=== PATIENT | female | born 1950 | race Caucasian/White ===

== ENCOUNTER 2024-09-28 18:22 | Inpatient (IN) | payer MEDICARE, SELFPAY ==
[2024-09-28] VITALS (13 sets, daily range): BP systolic 62–118; BP diastolic 36–63; PULSE 72–93; RESP 12–98; TEMP 36.6–36.8; O2SAT 97–100; BMI 32.3
--- NOTE | 2024-09-28 19:09 | EKG_ITS ---
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: : 1950 Requested By: Cecile Morales Order Number: [id number] Reading MD: Cecile Morales Measurements Intervals [place] Rate: 82 P: 52 [place]: 236 QRS: 59 QRSD: 105 T: 211 QT: 358 QTc: 418 Interpretive Statements SINUS RHYTHM WITH FIRST DEGREE AV BLOCK WITH OCCASIONAL VENTRICULAR PREMATURE COMPLEXES MARKED ST DEPRESSION, CONSIDER SUBENDOCARDIAL INJURY [0.2+ mV ST DEPRESSION] WARNING: DATA QUALITY MAY AFFECT INTERPRETATION Compared to ECG 08/04/2023 15:36:51 Ventricular premature complex(es) now present First degree AV block now present ST (T wave) deviation now present T-wave abnormality no longer present /store/S0/[id number]/ecg/[id number].pdf
--- NOTE | 2024-09-28 19:09 | XR_ITS ---
Examination: AP chest single view Technique: AP portable semiupright chest single view Exam date and time: September 28, 20242004 hrs. Comparison August 03, 2023 Indications: Syncope weakness today Findings: No significant cardiac enlargement No pneumonia or pulmonary edema Moderate osteopenia Stable granuloma right lower lobe Impression: No active disease
--- NOTE | 2024-09-28 20:29 | EDNOTE_ITS ---
ED Weakness RME/HPI General Chief complaint: Weakness Stated complaint: NEAR SYNCOPE Time Seen by Provider: 09/28/24 19:10 Arrival date/time: 09/28/24 18:22 Limitations: no limitations RME / HPI RME / HPI Narrative: DR. GAMBINO MAIN ED EVALUATION: 82-year-old female with history of hypertension, high cholesterol coming in with dizziness and near syncopal episode. Per report from EMS the patient was walking around and then got dizzy. There is no reported falling and hitting her head. Patient otherwise is not reporting regular blood per rectum, and nonbilious and nonbloody emesis once at home. Related Data Home Medications ?Medication ?Instructions ?Recorded ?Confirmed benazepril 40 mg tablet 40 mg PO QDAY 08/03/23 09/29/24 clopidogrel 75 mg tablet 75 mg PO QAM 08/03/23 09/29/24 rosuvastatin 40 mg tablet 40 mg PO QPM 08/03/23 09/29/24 furosemide 20 mg tablet 20 mg PO QDAY 09/29/24 09/29/24 Allergies Allergy/AdvReac Type Severity Reaction Status Date / Time No Known Allergies Allergy Verified 08/03/23 09:37 Review of Systems Review of Systems Systems Reviewed: All systems reviewed, normal except as documented Narrative Review of Systems: GEN: No fever, no chills, no weight loss EYES: No discharge, no visual changes, no pain HEENT: No ear pain, no congestion, no sore throat PULM: No shortness of breath, no cough, no congestion CV: No chest pain, no dyspnea on exertion, no palpitations GI: No nausea, no vomiting, no diarrhea, no pain, no constipation : No frequency, no urgency and no dysuria MUSC/SKEL: No joint pain, no back pain SKIN: No rash PSYCH: No hallucinations, no depression HEME/LYMPH: No easy bleeding or bruising tendencies NEURO: No weakness, no headache, +dizziness, + near syncopal episode (see HPI) Past Medical History Past Medical History NEUROLOGIC: Negative Cerebrovascular Accident or Seizures CARDIAC: Positive Cardiac Disorders ( bad heart valve per pt) and Valvular Heart Disease; Negative Hypercholesterolemia, Congestive Heart Failure or Hypertension RESPIRATORY: Positive Asthma; Negative Chronic Obstructive Pulmonary Disease (COPD) or Sleep Apnea GASTROINTESTINAL: Negative Gastrointestinal Disorders GENITOURINARY: Negative Genitourinary Disorders or Renal Disease MUSCULOSKELETAL: Negative Arthritis, Gout or Fractures ENDOCRINE: Negative Diabetes Mellitus Type 1, Diabetes Mellitus Type 2, Hyperthyroidism or Hypothyroidism HEMATOLOGIC: Negative Anemia or Sickle Cell Disease OTHER HISTORY: Negative Blood Transfusions, Blood Transfusion Reaction, Anesthesia Reactions or Cancer Surgical History SURGICAL: Positive Coronary Stent, Cardiac Catheterization and Hysterectomy; Negative Pacemaker, Ear Surgery or Joint Replacement Social History SMOKING STATUS: Never smoker SUBSTANCE USE: does not use ALCOHOL: Never ED Exam Narrative Physical exam: Patient lying in a stretcher, appears awake in minimal distress. Not pale. General Limitations: Present no limitations General appearance: Present alert; Absent anxious Head Head exam: Present atraumatic Eye Eye exam: Present normal appearance, PERRL and EOMI; Absent scleral icterus ENT ENT exam: Present normal exam, normal oropharynx and mucous membranes moist Neck Neck exam: Present normal inspection, full ROM and trachea midline; Absent tenderness Chest Chest inspection: Present normal inspection and symmetric chest wall rise Respiratory Respiratory exam: Present normal lung sounds bilaterally; Absent respiratory distress or wheezes Cardiovascular Cardiovascular exam: Present regular rate, normal rhythm and normal heart sounds Abdominal Exam Abdominal exam: Present soft and normal bowel sounds; Absent tenderness or guarding Rectal Exam Rectal exam: Present heme (+) stool (with brown stool) Extremities Exam Extremities exam: Present normal inspection and full ROM Back Exam Back exam: Present normal inspection and full ROM Neurological Exam Neurological exam: Present alert, oriented X3, CN II-XII intact and other (No aphasia, no dysarthria); Absent motor sensory deficit Psychiatric Psychiatric exam: Present normal affect and normal mood Skin Skin exam: Present warm, dry and intact; Absent cyanosis, pallor or mottled Course Course Course Narrative: 2156: Blood transfusion ordered. 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 START 00 Care 09/28/24 19:09 Active Continuous Pulse Oximetry ONCE Care 09/28/24 19:09 Completed EKG (ED ONLY) *Do not use* NOW Care 09/28/24 19:09 Completed Insert IV STAT Care 09/28/24 19:09 Active Transfuse,blood/blood products NOW Care 09/28/24 21:58 Active EKG (ED Only) Stat Exams 09/28/24 19:09 Ordered XR chest 1V portable Stat Exams 09/28/24 19:09 Completed B-Type Natriuretic Peptide Stat Lab 09/28/24 21:10 Completed CBC Stat Lab 09/28/24 21:10 Completed Comprehensive Metabolic Panel Stat Lab 09/28/24 19:36 Completed Drug Screen,Urine Stat Lab 09/28/24 20:42 Completed Ferritin Stat Lab 09/28/24 22:19 Completed Folate Stat Lab 09/28/24 22:19 Completed Iron Panel Stat Lab 09/28/24 22:19 Completed LDH (Lactate Dehydrogenase) Stat Lab 09/28/24 22:19 Completed Lipase Stat Lab 09/28/24 19:36 Completed Magnesium Stat Lab 09/28/24 19:36 Completed Partial Thromboplastin Time Stat Lab 09/28/24 19:36 Completed Prothrombin Time with INR Stat Lab 09/28/24 19:36 Completed Red Blood Cells Stat Lab 09/28/24 22:19 Completed Troponin I Stat Lab 09/28/24 19:36 Completed Type and Screen Stat Lab 09/28/24 22:19 Completed Urinalysis, C/S if Indicated Stat Lab 09/28/24 20:44 Completed Urine Culture Stat Lab 09/28/24 20:44 Received Vitamin B12 Stat Lab 09/28/24 22:19 Completed Ondansetron Inj [Zofran Inj] Med 09/28/24 19:09 Active 4 mg IV Q1HR PRN Oxygen Delivery NOW RT 09/28/24 19:09 Active Vital Signs Vital signs: Vital Signs Pulse Rate 84 09/28/24 18:26 Respiratory Rate 14 09/28/24 18:26 Blood Pressure 92/53 L 09/28/24 18:26 Pulse Oximetry (%) 100 09/28/24 18:26 Oxygen Delivery Method Nasal Cannula 09/28/24 18:26 Oxygen Flow Rate 2 09/28/24 18:26 Weakness MDM Narrative MDM Narrative:: 74-year-old female with history of hypertension coming in with dizziness and near syncope. Patient is not on blood thinners at this time. PMHX: Aortic stenosis on Plavix. Hyperlipidemia. Hypertension. Smoker. Cholecystectomy, hysterectomy at the age of 25 Status post bladder Suspension operation. 2335: Repeat blood pressure is 106 systolic with a HR of 106. 2347: Attempted to call Dr. Atwood, but he did not answer. Deanna Marina am scribing for and in the presence of Dr. Gambino. Patient data External records reviewed:: [facility] previous records (Reviewed last admission discharge dated 08/05/23, patient admitted for the following: Gross hematuria. ) and EMS form Clinical information provided by:: patient and EMS Social determinants that could affect healthcare access:: none Patient has the following chronic illnesses:: hypertension, high cholesterol How is presenting disease/condition affected by chronic disease/condition?: ex acerbated by Evaluation data The following diagnostics were reviewed and interpreted by me:: lab results, radiology exam(s) and EKG tracing(s) Lab and/or radiology exams considered but not ordered:: none Interpretation Summary: See above under MDM narrative. [facility] Report Signed Patient: VERENICE GIVENS Record#: [id number] Birthdate: 1950 Age/Sex: 74 / F Location: [facility] Attending Dr: Ordering Physician: Cecile Gambino MD Date of Service: 09/28/24 Procedure(s): XR chest 1V portable Accession Number(s): [id number] cc: Ant Valentin MD; Daquan Simeon MD; Cecile Gambino MD~ Examination: AP chest single view Technique: AP portable semiupright chest single view Exam date and time: September 28, 20242004 hrs. Comparison August 03, 2023 Indications: Syncope weakness today Findings: No significant cardiac enlargement No pneumonia or pulmonary edema Moderate osteopenia Stable granuloma right lower lobe Impression: No active disease Dictated By: Daquan Simeon MD Signed By: <Electronically signed by Daquan Simeon MD in OV> 09/28/24 2130 Medications / Prescriptions Medications or Prescriptions considered but not ordered:: none Medication administrations:: Medication Administration History Acetaminophen (Acetaminophen 325 Mg Tablet) 650 mg PO Q6H PRN PRN Reason: Fever >101.5 Stop: 10/29/24 01:55 Cyanocobalamin (Cyanocobalamin Inj 1,000 Mcg/Ml Vial) 1,000 mcg IM QDAY [place] Stop: 10/01/24 08:59 Ferric Sodium Gluconate 125 mg (/ Sodium Chloride) 110 mls @ 110 mls/hr IV QDAY [place] Stop: 10/05/24 08:59 Magnesium Hydroxide (Milk Of Magnesia Susp 30 Ml Udc) 30 ml PO QDAY PRN; Protoc ol PRN Reason: CONSTIPATION Stop: 10/29/24 01:55 Multivitamins/Minerals (Multivitamin Inj 10 Ml Vial) 10 ml IV X1 ONE Stop: 09/29/24 08:01 Ondansetron HCl (Ondansetron Inj 2 Mg/Ml Inj 2 Ml) 4 mg IV Q1HR PRN PRN Reason: PERSISTENT NAUSEA OR VOMITING Pantoprazole Sodium (Pantoprazole Inj 40 Mg Vial) 40 mg IVP QDAY [facility] Stop: 10/29/24 08:59 Vitamin B Complex/Vit C/Folic Acid (Vit B12/Vit C/Fa (Nephrovite) Tablet) 1 tab PO QDAY [facility] Stop: 10/29/24 08:59 Discontinued Medications Cyanocobalamin (Cyanocobalamin Inj 1,000 Mcg/Ml Vial) 1,000 mcg IM X1 ONE Stop: 09/29/24 03:11 Last Admin: 09/29/24 04:35 Dose: 1,000 mcg Documented By: Ferric Sodium Gluconate 125 mg (/ Sodium Chloride) 110 mls @ 110 mls/hr IV X1 ONE Stop: 09/29/24 03:27 Multivitamins/Minerals (Multivitamin Inj 10 Ml Vial) 10 ml IV X1 ONE Stop: 09/29/24 03:09 Ondansetron HCl (Ondansetron Inj 2 Mg/Ml Inj 2 Ml) 4 mg IV Q6H PRN; Protocol PRN Reason: NAUSEA OR VOMITING Stop: 10/29/24 01:55 see above Consultations Consultation(s) initiated? (list below): Yes Consultation #1 (Physician, Specialty, Details): Discussed case with [the resident physician, attending Dr. Macarenas] from Hospitalist service regarding admission. Discussed patients ED course, exam findings, labs, and radiology results. The Hospitalist [agrees] to accept the patient for admission. Time: 23:34 Diagnosis Weakness Differential Diagnosis: anemia, hypoglycemia, sepsis, dehydration and other (syncopal episode) Most likely diagnosis given after review of the tests above:: see below Admission Indicated Admission indicated?: indicated Admission Request Was there a request for admission?: Yes Admission Attestation Admission request attestation: Discussed case with [] from Hospitalist service regarding admission. Discussed patients ED course, exam findings, labs, and radiology results. The Hospitalist [agrees,declines] to accept the patient for admission. Disposition Plan Disposition Plan: Admit Discharge Plan Plan Patient Disposition: Admit Acute Care w/in Hospital Patient condition on transfer: Stable Problem List Clinical Impression: Near syncope, Symptomatic anemia, Acute UTI, Acute renal failure (ARF)
[2024-09-28 20:38] LABS: Prothrombin Time 11.4 Seconds (9.0-12.2)
[2024-09-28 20:44] LABS: Alanine Aminotransferase 10 U/L (10-49); Albumin, Serum 3.9 gm/dL (3.4-4.8); Albumin/Globulin Ratio 1.9 (1.2-2.2); Alkaline Phosphatase 47 U/L (46-116); Anion Gap 10 (7-16); Aspartate Amino Transferase 11 U/L (0-34); BUN/Creatinine Ratio 26 Ratio (12-20); Bilirubin,Total 0.2 mg/dL (0.3-1.2); Blood Urea Nitrogen 81 mg/dL (9-23); Calcium 8.6 mg/dL (8.3-10.6); Calcium (Corrected) 8.7 mg/dL (8.5-10.1); Carbon Dioxide 22.1 mMol/L (20.0-31.0); Chloride 107 mMol/L (98-107); Creatinine (Component) 3.1 mg/dL (0.6-1.3); Estimated Creatinine Clearance 13.4 mL/min (>60); Globulin 2.1 gm/dL (2.3-3.5); Glucose 135 mg/dL (74-106); Lipase 55 U/L (12-53); Magnesium 2.8 mg/dL (1.6-2.6); Osmolality,Calculated 303 (275-295); Potassium 5.1 mMol/L (3.4-5.1); Sodium 139 mMol/L (136-145); Troponin I < 0.020 ng/mL (0.0-0.045); eGFR 15 See Note
[2024-09-28 20:50] LABS: Collection Type, Urine Catheter
[2024-09-28 21:12] LABS: Amphetamine/Methamp Scrn,U Negative (Negative); Barbiturate Screen,Urine Negative (Negative); Benzodiazepines Screen,Urine Negative (Negative); Benzoylecgonine Screen, Ur Negative (Negative); Fentanyl Screen,Urine Negative (Negative); Opiate Screen,Urine Negative (Negative); THC Screen,Urine Negative (Negative)
[2024-09-28 21:18] LABS: Bacteria,Urine 1+; Bilirubin,Urine Negative (Negative); Blood,Urine 1+ (Negative); Clarity,Urine Turbid (Clear/Hazy); Color,Urine Lt-Yellow (Lt Yel-Yel); Culture Indicated,Urine Yes; Glucose, Urine Negative (Negative); Hyaline Casts,Urine < 1 /hpf (0-1); Ketones,Urine Negative (Negative); Leukocyte Esterase,Urine Positive (Negative); Nitrite,Urine Negative (Negative); PH,Urine 6.5 (5.0-7.0); Protein,Urine 1+ (Neg - Trace); RBC,Urine 1 /hpf (0-3); Specific Gravity,Urine 1.018 (1.001-1.035); Squamous Epithelial Cell,Urine 1 /hpf (0-5); Urobilinogen,Urine Negative mg/dL (0.0-1.0); WBC,Urine 16 /hpf (0-5)
[2024-09-28 21:20] LABS: Basophils # (Auto) 0.1 Thou/mm3 (0.0-0.2); Basophils % (Auto) 1 % (0-2.5); Eosinophils % (Auto) 0 % (0-10); Immature Granulocytes % (Auto) 1 % (0-0); Immature Granulocytes Auto 0.04 Thou/mm3 (0.00-0.00); Lymphocytes # (Auto) 0.8 Thou/mm3 (1.0-4.8); Lymphocytes % (Auto) 9 % (10-50); Mean Corpuscular HGB Conc 32.7 g/dl (31.0-37.0); Mean Corpuscular Hemoglobin 31.4 pg (25.0-35.0); Mean Corpuscular Volume 96 fL (80-100); Monocytes # (Auto) 0.5 Thou/mm3 (0.0-0.8); Monocytes % (Auto) 6 % (0-12); Neutrophils # (Auto) 7.2 Thou/mm3 (1.8-7.7); Neutrophils % (Auto) 83 % (37-80); Nucleated Red Blood Cell % 0 /100 WBC (0); Platelet Count 155 Thou/mm3 (140-440); RDW Standard Deviation 56.6 fL (36.4-46.3); Red Blood Count 1.69 Miln/mm3 (4.00-5.20); White Blood Count 8.6 Thou/mm3 (3.6-11.0)
[2024-09-28 21:25] LABS: Hematocrit 16.2 % (36.0-46.0); Hemoglobin 5.3 g/dL (12.0-16.0)
[2024-09-28 22:04] LABS: B-Type Natriuretic Peptide 124 pg/mL (0-100)
[2024-09-29] VITALS (21 sets, daily range): BP systolic 63–147; BP diastolic 36–82; PULSE 64–83; RESP 10–29; TEMP 36.1–36.8; O2SAT 94–100; BMI 33.0
[2024-09-29 01:42] LABS: LDH (Lactate Dehydrogenase) 235 U/L (120-246)
[2024-09-29 01:50] LABS: Ferritin 16 ng/mL (7.3-270.7); Total Iron Binding Capacity 352 mcg/dL (250-425)
--- NOTE | 2024-09-29 01:55 | PD.RESHP ---
Documentation for date of: 09/29/24 [facility] History of Present Illness History of present illness: 74-year-old female with past medical history of hypertension, CAD s/p 3 stents in 2013, aortic stenosis, hyperlipidemia, asthma per chart review but patient did not endorse any inhalers use, chronic smoker presented to the hospital with chief complaints of dizziness since 3 months. Patient noticed this dizziness 3 months back and since then it is getting progressively worsened and patient recently had a fall while climbing the stairs with no loss of consciousness and no trauma to the head or back. Stated that she is having multiple dizziness even in sitting position and 2 weeks back visited her metal checker Dr. Gions and she was scheduled for cardiac catheterization on 10/03/2024. Denies chest pain, palpitations, syncopal attacks, abdominal pain. Patient endorsed that she is eating only 1 meal in a day due to financial issues and also noticed weight loss over the last couple of months. Denies blood or blackish discoloration of stools and also denies any bloody vomitus, constipation, diarrhea. Also endorsed that she bruises easily. Before coming to the ED, patient had episode of nonbilious vomiting. ED Course: -Initial vitals were blood pressure 92/53 mmHg, pulse rate 84/min, respiratory rate 14/min, temperature 97.8 ?F, SpO2 100% with 2 L oxygen -Labs significant for Hb 5.3, BUN 81, creatinine 3.1, BNP 124. Urinalysis showed turbid urine with 1+ proteinuria, 16 WBC, 1+ bacteria. Tested negative for urine toxicology. Chest x-ray showed no pulmonary infiltrates. -In the ED, patient was given ondansetron and started on 2 units of PRBC transfusion -Patient was admitted for anemia Past medical history: hypertension, CAD s/p 3 stents in 2013, aortic stenosis, hyperlipidemia, asthma Past surgical history: Cholecystectomy, Hysterectomy Social history: Smoking for greater than 30 years, actively smoking 4 cigarettes/day, denies alcohol and other illicit drug abuse Family history: Lung cancer in father and mother of alcohol abuse Review of Systems Review of Systems Narrative Review of Systems: Constitutional: No Weight Change, No Fever, No Chills, No Night Sweats, Fatigue, Malaise ENT/Mouth: No Hearing Changes, No Ear Pain, No Nasal Congestion, No Sinus Pain, No Hoarseness, No sore throat, No Rhinorrhea, No Swallowing Difficulty Eyes: No Eye Pain, No Swelling, No Redness, No Foreign Body, No Discharge, No Vision Changes Cardiovascular: No Chest Pain, No SOB, No PND, Dyspnea on Exertion, No Orthopnea, No Edema, No Palpitations Respiratory: No Cough, No Sputum, No Wheezing, No Dyspnea Gastrointestinal: No Nausea, No Vomiting, No Diarrhea, No Constipation, No Pain, No Heartburn, No Anorexia, No Dysphagia, No Hematochezia, No Melena, No Flatulence, No Jaundice Genitourinary: No Dysuria, No Urinary Frequency, No Hematuria, No Urinary Incontinence, No Urgency, No Flank Pain, No Urinary Flow Changes, No Hesitancy Musculoskeletal: No Arthralgias, No Myalgias, No Joint Swelling, No Joint Stiffness, No Back Pain, No Neck Pain, No Injury History Skin: No Skin Lesions, No Pruritis Neuro: No Weakness, No Numbness, No Paresthesias, No Loss of Consciousness, No Syncope, No Dizziness, No Headache, No Coordination Changes, Recent Falls Exam Vital Signs Temp Pulse Resp BP Pulse Ox O2 Del Method O2 Flow Rate 98.1 F 65 19 104/43 L 97 Room Air 2 09/29/24 01:43 09/29/24 01:43 09/29/24 01:43 09/29/24 01:43 09/29/24 01:43 09/28/24 23:35 09/28/24 18:26 Narrative Exam General: Awake. Frail elderly lady HEENT: Normocephalic, atraumatic, mucous membranes moist. Heart: Regular rate and rhythm, ejection systolic murmur best heard at aortic area Lungs: Clear to auscultation with no wheezing or crackles. Abdomen: Soft, nondistended, nontender, positive bowel sounds. ?No guarding or rebound tenderness. Neurologic: Alert and oriented x3, no gross neurological deficit, and patient able to move all 4 extremities. Extremities: No edema. Skin: No rash or ecchymoses. Results: Labs 10/02/24 05:23 10/02/24 05:23 Labs: Short CBC 09/28/24 Range/Units 21:10 WBC 8.6 (3.6-11.0) Thou/mm3 Hgb 5.3 L* (12.0-16.0) g/dL Hct 16.2 L* (36.0-46.0) % Plt Count 155 (140-440) Thou/mm3 BMP 09/28/24 19:36 Sodium 139 Potassium 5.1 Chloride 107 Carbon Dioxide 22.1 BUN 81 H Creatinine 3.1 H Glucose 135 H Calcium 8.6 Cardiac Enzymes 09/28/24 Range/Units 19:36 Troponin I < 0.020 (0.0-0.045) ng/mL Liver Function 09/28/24 Range/Units 19:36 Total Bilirubin 0.2 L (0.3-1.2) mg/dL AST 11 (0-34) U/L ALT 10 (10-49) U/L Alkaline Phosphatase 47 (46-116) U/L Albumin 3.9 (3.4-4.8) gm/dL Urine 09/28/24 Range/Units 20:44 Urine Color Lt-Yellow (Lt Yel-Yel) Urine Clarity Turbid A (Clear/Hazy) Urine pH 6.5 (5.0-7.0) Ur Specific [place] 1.018 (1.001-1.035) Urine Protein 1+ A (Neg - Trace) Urine Glucose (UA) Negative (Negative) Quality Measures Quality Measures none Advance care planning discussed with:: patient Medications Home Medications and Allergies Home Medications ?Medication ?Instructions ?Recorded ?Confirmed ?Type benazepril 40 mg tablet 40 mg PO QDAY 08/03/23 09/29/24 History clopidogrel 75 mg tablet 75 mg PO QAM 08/03/23 09/29/24 History rosuvastatin 40 mg tablet 40 mg PO QPM 08/03/23 09/29/24 History furosemide 20 mg tablet 20 mg PO QDAY 09/29/24 09/29/24 History Allergies Allergy/AdvReac Type Severity Reaction Status Date / Time No Known Allergies Allergy Verified 08/03/23 09:37 Visit Medications Ondansetron HCl (Ondansetron Inj 2 Mg/Ml Inj 2 Ml) 4 mg IV Q1HR PRN PRN Reason: PERSISTENT NAUSEA OR VOMITING Assessment & Plan Plan 74-year-old female with past medical history of hypertension, CAD s/p PCI, 3 stents in 2013, aortic stenosis, hyperlipidemia, asthma per chart review but patient did not endorse any inhalers use, chronic smoker presented to the hospital with chief complaints of dizziness since 3 months and admitted for anemia # Dizziness and fall # Acute anemia # Multifactorial, nutritional, anemia due to CKD, iron deficiency, B12 deficiency,?Blood loss -Complaining of dizziness since 3 months and had a fall 2 weeks back -Following metal checker Dr. Goins for aortic stenosis and CAD, scheduled for cardiac cath on 10/03/2024 -Presented to the hospital because dizziness is getting worsened and had an episode of vomiting -Endorsed that she is eating only 1 meal per day due to financial issues and also endorsed weight loss over last 3 months -Denies abdominal pain, constipation, diarrhea, blood or blackish discoloration of stools. -Vitals at the time of admission are stable except for blood pressure 92/53 mmHg -Labs showed hemoglobin of 5.3, iron 30, iron saturation 8%, ferritin 16, total bilirubin 0.2, B12 156, folate 11.39, creatinine 3.1, BUN 81 -In the ED, ED doctor nurse that the fecal occult blood tested positive but could not find documented in the chart, so repeated fecal occult blood -Patient received a dose of ondansetron in the ED Plan -Blood grouping and crossmatch was done, 2 PRBC transfusion was ordered -A dose of vitamin B12 shot 1000 mcg was given and scheduled 2 more doses in next 2 days. -Iron sucrose dose of 125 Mg IV is given and scheduled injections once daily. -Multivitamin injection was given -Nephro-Fritz -Follow-up with stool for occult blood # Acute on chronic kidney disease, stage IV #? Due to hypertension -Baseline creatinine is 2.4 on 04/2024 -On the admission, BUN is 81, creatinine is 3.1 Plan -Consult nephrology -Avoid nephrotoxic medications -Renally dose medications -Ultrasound of bilateral kidneys -Urine microalbumin and creatinine # History of aortic stenosis # History of CAD s/p PCI, 3 stents -Patient is using clopidogrel and rosuvastatin -Patient is scheduled for cardiac cath on 10/03/[address] Goins -Withheld clopidogrel for now until GI bleed is ruled out -Recommended to follow-up with stool for occult blood -Echo ordered #History of hypertension -Patient is using Benazepril and propranolol -Blood pressure at the time of admission is 92/53 mmHg -Start antihypertensive based on blood pressures -Withheld for now # History of hyperlipidemia -Lipid panel in 05/2024 is within normal limits -Resume rosuvastatin after medrec Hospital Maintenance: Dispo: Telemetry DVT ppx: SCD GI ppx: Protonix Diet: Regular, changed to low-salt diet if needed IV lines: Peripheral Code status: DNR/DNI Patient plan of care was discussed with the attending physician, Dr. Nati Balderas, PGY1 Attending Provider Attestation/Addendum I discussed with and supervised the resident physician who took care of this patient. I agree with the assessment and plan as above. Patient was admitted for dizziness and fall. Patient was noted to be anemic requiring blood transfusion. She has coronary artery disease and aortic stenosis. Patient is being followed by Dr. Goins her metal checker. She will be admitted for further workup and treatment.
--- NOTE | 2024-09-29 01:58 | ECHO_ITS ---
Transthoracic Echo Report Ht (in): 59 Wt (lb): 160 Exam Location: Portable Status: Inpatient [employer] Member: Nery Luther Indications: Procedure Performed: BP: 147 / 48 HR: 69 Rhythm: Sinus Technical Quality: Fair MEASUREMENTS (Male / Female) Normal Values 2D ECHO LV Diastolic Diameter PLAX 4.9 cm 4.2 - 5.9 / 3.9 - 5.3 cm LV Systolic Diameter PLAX 3.3 cm IVS Diastolic Thickness 1.2 cm 0.6 - 1.0 / 0.6 - 0.9 cm LVPW Diastolic Thickness 1.1 cm 0.6 - 1.0 / 0.6 - 0.9 cm LV Relative Wall Thickness 0.5 LVOT Diameter 2.0 cm LA Volume Index 35.6 cm?/m? 16 - 28 cm?/m? Ascending Aorta Diameter 2.9 cm M-MODE Aortic Root Diameter MM 2.5 cm LA Systolic Diameter MM 4.3 cm LA Ao Ratio MM 1.7 AV Cusp Separation MM 1.3 cm DOPPLER AV Peak Velocity 426.4 cm/s AV Peak Gradient 72.7 mmHg AV Mean Gradient 43.4 mmHg AV Velocity Time Integral 109.0 cm AI Peak Velocity 358.0 cm/s AI Peak Gradient 51.3 mmHg AI Pressure Half Time 461.0 ms LVOT Peak Velocity 83.5 cm/s LVOT Peak Gradient 2.8 mmHg LVOT Velocity Time Integral 21.6 cm LVOT Cardiac Index 2644.3 cm?/min?m? AV Area Cont Eq vti 0.6 cm? AV Area Cont Eq pk 0.6 cm? MV Peak Velocity 132.0 cm/s MV Peak Gradient 7.0 mmHg MV Mean Velocity 86.2 cm/s MV Mean Gradient 4.0 mmHg MV Area PHT 3.2 cm? MR Peak Velocity 524.0 cm/s MR Peak Gradient 109.8 mmHg Mitral E Point Velocity 108.0 cm/s Mitral A Point Velocity 131.0 cm/s Mitral E to A Ratio 0.8 LV E' Lateral Velocity 7.3 cm/s Mitral E to LV E' Lateral Ratio 14.8 LV E' Septal Velocity 5.5 cm/s Mitral E to LV E' Septal Ratio 19.5 FINDINGS Left Ventricle Normal left ventricular size, systolic function with no obvious regional wall motion abnormalities. Mild LVH. The ejection fraction is visually estimated at 60-65%. Right Ventricle The right ventricle is normal in size and systolic function. Left Atrium The left atrium is normal by two-dimensional, color flow and Doppler imaging with no structural abnormalities, no thrombus formation present. Right Atrium The right atrium is normal by two-dimensional imaging, color flow and Doppler imaging with no struct ural abnormalities, no thrombus formation present. Atrial Septum The interatrial septum appears normal with no evidence of a shunt. Aorta The aorta is normal by two-dimensional, color flow and Doppler interrogation. Mitral Valve The mitral valve is normal by two-dimensional, color flow and Doppler interrogation. There is mild mitral valve regurgitation. Aortic Valve The aortic valve is trileaflet. Severe stenosis, mean gradient 47mmHg, vmax 4.4m/s. There is mild a ortic valve regurgitation. Tricuspid Valve The tricuspid valve is normal by two-dimensional, color flow and Doppler interrogation. There is tra ce tricuspid valve regurgitation. Pulmonic Valve There is no significant pulmonic valve regurgitation. Vessels The pulmonary artery appears normal. The inferior vena cava pulmonary and hepatic veins appear yuliana l. Pericardium The pericardium is normal by two-dimensional imaging. There is no significant pericardial effusion. CONCLUSIONS Severe calcific Aortic valve mean gradient 47mmHg, vmax 4.4m/s. Peak Gradient 78 mm hG Normal LV size and function. Mild LVH. Estimated EF 60-65% Normal RV size and function Mild mitral regurgitation Trace tricuspid regurgitation Sammi Schwartz (Electronically Signed) Final Date: 29 September 2024 12:53
[2024-09-29 01:59] LABS: Iron 30 mcg/dL (50-170); Percent Iron Saturation 8 % (20-55); Unsaturated Iron Binding 322 (225-295)
[2024-09-29 02:17] LABS: Folate 11.39 ng/mL (>5.38); Vitamin B12 156 pg/mL (211-911)
--- NOTE | 2024-09-29 03:20 | XR_ITS ---
Examination: Retroperitoneal ultrasound, complete Technique: Multiple high resolution grayscale images of the retroperitoneum obtained, including kidneys and bladder. Exam date and time:September 29, 2023 at 0438 hrs. Indications: Diagnosis chronic kidney disease Findings: Right kidney 9.2 x 3.4 x 4.1 cm renal cortex 1.0 cm Left kidney 9.3 x 3.5 x 4.8 cm cortex 1.4 cm 7 mm calculus in the left renal pelvis Moderate bilateral renal parenchymal scar formation Urinary bladder is contracted Impression: Small kidneys with bilateral renal cortical thinning 7 mm calculus left kidney No hydronephrosis Moderate bilateral renal parenchymal scar formation
--- NOTE | 2024-09-29 03:54 | PC.NURSE ---
REPORT CALLED TO NICOLE BENJAMIN. ALL QUESTIONS ASKED AND ANSWERED. PATIENT TRANSFERRED TO FLOOR WITH STAFF. NO DISTRESS NOTED AT TRANSFER. PATIENT REMAINS ON ROOM AIR.
[2024-09-29] MEDS: CYANOCOBALAMIN INJ 1,000 mCg/ML VIAL 1000 MCG IM ×2 (04:35→08:09)
[2024-09-29 06:14] LABS: Creatinine MALB Rnd Ur 76 mg/dL (30-125); Microalbumin Creat Ratio 304 mg/gCrea (<30); Microalbumin, Random Urine 231 mg/L (0-300)
[2024-09-29] MEDS: PANTOPRAZOLE INJ 40 MG VIAL IVP (08:09)
[2024-09-29] MEDS: VIT B12/Vit C/FA (Nephrovite) TABLET 1 TAB PO (08:09)
[2024-09-29 08:11] LABS: Basophils # (Auto) 0.1 Thou/mm3 (0.0-0.2); Basophils % (Auto) 1 % (0-2.5); Eosinophils # (Auto) 0.1 Thou/mm3 (0.0-0.5); Eosinophils % (Auto) 1 % (0-10); Hematocrit 23.3 % (36.0-46.0); Immature Granulocytes % (Auto) 1 % (0-0); Immature Granulocytes Auto 0.05 Thou/mm3 (0.00-0.00); Lymphocytes # (Auto) 1.5 Thou/mm3 (1.0-4.8); Lymphocytes % (Auto) 20 % (10-50); Mean Corpuscular HGB Conc 33.9 g/dl (31.0-37.0); Mean Corpuscular Hemoglobin 31.5 pg (25.0-35.0); Mean Corpuscular Volume 93 fL (80-100); Monocytes # (Auto) 0.6 Thou/mm3 (0.0-0.8); Monocytes % (Auto) 8 % (0-12); Neutrophils # (Auto) 5.3 Thou/mm3 (1.8-7.7); Neutrophils % (Auto) 70 % (37-80); Nucleated Red Blood Cell % 0 /100 WBC (0); Platelet Count 140 Thou/mm3 (140-440); RDW Standard Deviation 51.7 fL (36.4-46.3); Red Blood Count 2.51 Miln/mm3 (4.00-5.20); White Blood Count 7.6 Thou/mm3 (3.6-11.0)
--- NOTE | 2024-09-29 08:14 | PRELIM_ITS ---
Renal/Retroperitoneal ultrasound. September 29, 2024 0438 hours Clinical history: CKD.Technique: Duplex scan of the bilateral renal arterial and venous tree was performed utilizing 2D grayscale imaging, D oppler spectral analysis and color flow. Comparison: No prior study is available for comparison. Find ings:Right: The right kidney measures 9.2 x 3.4 x 4.1 cm. Renal cortex is measuring 1 cm. Renal corti armando scarring is noted. There is no hydronephrosis or renal calculus. The corticomedullary differentia tion is maintained.Left: The left kidney measures 9.3 x 3.5 x 4.8 cm. Renal cortex is measuring 1.4 c m. Renal cortical scarring is noted. There is no hydronephrosis. Nonobstructing renal calculus is not ed near the renal pelvis measuring 0.7 x 0.4 x 0.4 cm. The corticomedullary differentiation is mainta ined.The urinary bladder is empty.Impression:Bilateral renal cortical scarring. No evidence of hydron ephrosis bilaterally.Nonobstructing left renal calculus. Report Electronically Signed By: Roshan Monzon 09/29/2024 8:41:30 AM [EST]
[2024-09-29 08:33] LABS: Anion Gap 7 (7-16); BUN/Creatinine Ratio 25 Ratio (12-20); Blood Urea Nitrogen 71 mg/dL (9-23); Calcium 8.7 mg/dL (8.3-10.6); Carbon Dioxide 23.8 mMol/L (20.0-31.0); Chloride 109 mMol/L (98-107); Creatinine (Component) 2.8 mg/dL (0.6-1.3); Glucose 89 mg/dL (74-106); Magnesium 2.9 mg/dL (1.6-2.6); Osmolality,Calculated 299 (275-295); Potassium 4.9 mMol/L (3.4-5.1); Sodium 140 mMol/L (136-145); Thyroid Stimulating Hormone 0.97 uIU/mL (0.55-4.78); eGFR 17 See Note
[2024-09-29 08:54] LABS: Hemoglobin 7.9 g/dL (12.0-16.0)
[2024-09-29 09:13] LABS: Glucose Estimated Average 100 mg/dL (80-131); Hemoglobin A1C 5.1 % Hgb (4.8-6.0)
[2024-09-29] MEDS: ferumoxytoL (ESRD) 510 MG in SODIUM CHLORIDE 0.9% 100 ML 234 MG IV (09:36)
--- NOTE | 2024-09-29 11:03 | PC.SS ---
Initial assessment: This is 74 year old female admitted for anemia. Patient appeared alert and oriented. Patient informs she lives with her sister, Emily. Patient confirmed demographic information. Patient's sister, Emily was identified as the patient's alternate medical surrogate decision maker. Patient describes to be independent with ADL's. Patient denies use of DME at home. Patient's PCP is Dr. Millicent Valentin. Pharmacy of choice is [facility] in [place]. The discharge plan was discussed, and the patient would like to return home once medically cleared. Patient's niece to assist with transportation home. No needs identified at this time. tax services professional to remain available to address further concerns. D/c plan: home Next of kin: sisterEmily Anila
--- NOTE | 2024-09-29 15:15 | PC.SS ---
Rounding note: pending cardio workup. Anticipate 2-3days before discharge.
--- NOTE | 2024-09-29 16:05 | ESCONSULT_ITS ---
HPI Data of Consult Requesting Physician: Kris Damian MD Admitting Provider: Kris Damian MD Attending Provider: Kris Damian MD Primary Care Provider: Ant Valentin MD Consult Narrative History of present illness: Patient is a 74-year-old female with past medical history of hypertension, CAD s/p 3 stents in 2013, aortic stenosis, hyperlipidemia, and chronic smoker who presented to the hospital with chief complaints of dizziness for the past 3 months. Patient states that the dizziness is getting progressively worse and patient recently had a fall while climbing the stairs with no loss of consciousness or trauma.. She reports having multiple episodes of dizziness even in sitting position. Patient reports she is scheduled with Dr. Goins for cardiac catheterization on 10/03/2024. Denies chest pain, palpitations, shortness of breath, abdominal pain. Patient reports most dizziness occurs when she suddenly stands up. Cardiology consulted for syncope/presyncopal episodes. cc:: cc: Kris Damian MD Exam Vital Signs Temp Pulse Resp BP Pulse Ox O2 Del Method O2 Flow Rate 97.1 F 67 17 107/61 96 Room Air 2 09/29/24 12:00 09/29/24 12:00 09/29/24 12:00 09/29/24 12:00 09/29/24 12:09/29/24 12:00 09/28/24 18:26 Narrative Exam General: Pleasant elderly female, AO x 3. In no acute distress. Heart: Regular rate and rhythm, ejection systolic murmur with worsening sound heard at both cardiac apex and aortic area. Lungs: Clear to auscultation with no wheezing or crackles. Abdomen: Soft, nondistended, nontender, positive bowel sounds. ?No guarding or rebound tenderness. Extremities: Trace left lower extremity edema, 1+ right lower extremity edema. Skin: No rash or ecchymoses. Results Labs 09/30/24 08:16 09/30/24 08:16 Labs: Short CBC 09/28/24 09/29/24 Range/Units 21:10 07:53 WBC 8.6 7.6 (3.6-11.0) Thou/mm3 Hgb 5.3 L* 7.9 L D (12.0-16.0) g/dL Hct 16.2 L* 23.3 L (36.0-46.0) % Plt Count 155 140 (140-440) Thou/mm3 BMP 09/28/24 09/29/24 19:36 07:53 Sodium 139 140 Potassium 5.1 4.9 Chloride 107 109 H Carbon Dioxide 22.1 23.8 BUN 81 H 71 H Creatinine 3.1 H 2.8 H Glucose 135 H 89 Calcium 8.6 8.7 Cardiac Enzymes 09/28/24 Range/Units 19:36 Troponin I < 0.020 (0.0-0.045) ng/mL Liver Function 09/28/24 Range/Units 19:36 Total Bilirubin 0.2 L (0.3-1.2) mg/dL AST 11 (0-34) U/L ALT 10 (10-49) U/L Alkaline Phosphatase 47 (46-116) U/L Albumin 3.9 (3.4-4.8) gm/dL Urine 09/28/24 Range/Units 20:44 Urine Color Lt-Yellow (Lt Yel-Yel) Urine Clarity Turbid A (Clear/Hazy) Urine pH 6.5 (5.0-7.0) Ur Specific [place] 1.018 (1.001-1.035) Urine Protein 1+ A (Neg - Trace) Urine Glucose (UA) Negative (Negative) Quality Measures Quality Measures none Advance care planning discussed with:: patient Medications Home Medications and Allergies Home Medications ?Medication ?Instructions ?Recorded ?Confirmed ?Type benazepril 40 mg tablet 40 mg PO QDAY 08/03/23 09/29/24 History clopidogrel 75 mg tablet 75 mg PO QAM 08/03/23 09/29/24 History rosuvastatin 40 mg tablet 40 mg PO QPM 08/03/23 09/29/24 History furosemide 20 mg tablet 20 mg PO QDAY 09/29/24 09/29/24 History Allergies Allergy/AdvReac Type Severity Reaction Status Date / Time No Known Allergies Allergy Verified 08/03/23 09:37 Visit Medications Acetaminophen (Acetaminophen 325 Mg Tablet) 650 mg PO Q6H PRN PRN Reason: Fever >100.3 Stop: 10/29/24 01:55 Atorvastatin Calcium (Atorvastatin Calcium 20 Mg Tablet) 80 mg PO HS [facility] Stop: 10/29/24 20:59 Cyanocobalamin (Cyanocobalamin Inj 1,000 Mcg/Ml Vial) 1,000 mcg IM QDAY [facility] Stop: 10/01/24 08:59 Last Admin: 09/29/24 08:09 Dose: 1,000 mcg Multivitamins/Minerals 10 ml/ (Sodium Chloride) 1,010 mls @ 100 mls/hr IV X1 ONE Stop: 09/29/24 18:05 Last Admin: 09/29/24 08:42 Dose: Not Given Magnesium Hydroxide (Milk Of Magnesia Susp 30 Ml Udc) 30 ml PO QDAY PRN; Protocol PRN Reason: CONSTIPATION Stop: 10/29/24 01:55 Ondansetron HCl (Ondansetron Inj 2 Mg/Ml Inj 2 Ml) 4 mg IV Q1HR PRN PRN Reason: PERSISTENT NAUSEA OR VOMITING Discontinued Medications Acetaminophen (Acetaminophen 325 Mg Tablet) 650 mg PO Q6H PRN PRN Reason: Fever >101.5 Stop: 10/29/24 01:55 Cyanocobalamin (Cyanocobalamin Inj 1,000 Mcg/Ml Vial) 1,000 mcg IM X1 ONE Stop: 09/29/24 03:11 Last Admin: 09/29/24 04:35 Dose: 1,000 mcg Ferric Sodium Gluconate 125 mg (/ Sodium Chloride) 110 mls @ 110 mls/hr IV X1 ONE Stop: 09/29/24 03:27 Last Admin: 09/29/24 08:41 Dose: Not Given Ferric Sodium Gluconate 125 mg (/ Sodium Chloride) 110 mls @ 110 mls/hr IV QDAY [facility] Stop: 10/05/24 08:59 Ferumoxytol 510 mg/ Sodium (Chloride) 117 mls @ 234 mls/hr IV X1 ONE Stop: 09/29/24 08:11 Last Admin: 09/29/24 08:41 Dose: Not Given Ferumoxytol 510 mg/ Sodium (Chloride) 117 mls @ 234 mls/hr IV X1 ONE Stop: 09/29/24 08:44 Last Admin: 09/29/24 09:36 Dose: 234 mls/hr Multivitamins/Minerals (Multivitamin Inj 10 Ml Vial) 10 ml IV X1 ONE Stop: 09/29/24 03:09 Last Admin: 09/29/24 08:40 Dose: Not Given Multivitamins/Minerals (Multivitamin Inj 10 Ml Vial) 10 ml IV X1 ONE Stop: 09/29/24 08:01 Ondansetron HCl (Ondansetron Inj 2 Mg/Ml Inj 2 Ml) 4 mg IV Q6H PRN; Protocol PRN Reason: NAUSEA OR VOMITING Stop: 10/29/24 01:55 Pantoprazole Sodium (Pantoprazole Inj 40 Mg Vial) 40 mg IVP QDAY [facility] Stop: 10/29/24 08:59 Last Admin: 09/29/24 08:09 Dose: 40 mg Vitamin B Complex/Vit C/Folic Acid (Vit B12/Vit C/Fa (Nephrovite) Tablet) 1 tab PO QDAY [facility] Stop: 10/29/24 08:59 Last Admin: 09/29/24 08:09 Dose: 1 tab Assessment & Plan Plan Patient is a 74-year-old female admitted for syncopal/presyncopal episodes. Cardiology consulted for syncopal workup. #Syncope/presyncope #Severe aortic stenosis #History of CAD status post PCI Patient reports syncope/presyncope for the past few months. Syncopal episodes likely related to anemia and aortic stenosis. Patient has cardiac echo showing severe aortic stenosis Patient would likely benefit from TAVR. If patient is stabilized she may get cath during hospitalization, or if unstable will postpone to a later date. Troponin within normal limits # Acute anemia # Acute on chronic kidney disease, stage IV #History of hypertension # History of hyperlipidemia Managed per primary team Case discussed with multifocal button grinder Dr. Buster Obando MD PGY3
--- NOTE | 2024-09-29 18:30 | ESPR_ITS ---
<Statement entered by Kayleen Huang MD - 09/29/24 20:40> Patient was examined bedside this morning, posttransfusion hemoglobin was 7.9 after 2 unit of PRBC. Pending occult blood and cardiac recs. I discussed with and supervised my co-resident involved in the care of this patient. I agree with the assessment and plan as documented above. Kayleen Huang,PGY-3 Disclaimer: Despite multiple revisions, due to the dictation software being used, the document below may not be free of grammatical errors including phonetic/typographic errors. However, this does not deter from our commitment to providing health care in the patient's best interest in mind. Documentation for date of: 09/29/24 Subjective Subjective Interval history: Patient was at bedside this morning. No overnight events. Patient was given a total of 2 PRBCs today and hemoglobin increased to 7.9, pending FOBT. Consulted cardiology. Restarted patient's atorvastatin 80 mg. Echo the following findings: Severe calcific Aortic valve mean gradient 47mmHg, vmax 4.4m/s. Peak Gradient 78 mm hG Normal LV size and function. Mild LVH. Estimated EF 60-65% Normal RV size and function Mild mitral regurgitation Trace tricuspid regurgitation Exam Vital Signs Temp Pulse Resp BP Pulse Ox O2 Del Method O2 Flow Rate 97 F 68 17 102/46 L 94 L Room Air 2 09/29/24 16:00 09/29/24 16:00 09/29/24 16:00 09/29/24 16:00 09/29/24 16:00 09/29/24 16:09/28/24 18:26 Narrative Exam General: A/O x3, no acute distress, well-nourished, well-developed Eyes: PERRL, EOMI. Anicteric, vision grossly intact. Ears: No ear pain, no ear discharge, Hearing grossly intact. Nose: No nasal discharge. Mouth/Throat: Dry mucous membranes, no redness, no lesions. Neck: Neck supple, non-tender, no cervical lymphadenopathy. Lungs: Clear YASMINE to auscultation and percussion, No accessory muscle use. Cardio: Normal S1/S2, regular rhythm, systolic ejection murmur, no JVD Abdomen: Soft, non-tender, no palpable masses, peristalsis present, no guarding or rebound. Extremities: Symmetrical, no significant deformities, trace peripheral edema , non-tender, peripheral pulses presents. Skin: No rashes, no lesions, warm to touch. Neuro: No focal neurological deficits. motor and sensory intact Objective Labs 09/30/24 08:16 09/30/24 08:16 Labs: Laboratory Results - last 24 hr 09/28/24 09/28/24 09/28/24 19:36 20:42 20:44 WBC RBC Hgb Hct MCV MCH MCHC RDW Std Deviation Plt Count Neut % (Auto) Lymph % (Auto) [place] % (Auto) Eos % (Auto) Baso % (Auto) Neut # (Auto) Lymph # (Auto) [place] # (Auto) Eos # (Auto) Baso # (Auto) Immature Gran # (Auto) Absolute Nucleated RBC Immature Gran % Nucleated RBC % PT 11.4 INR 1.0 APTT Not Performed. Sodium 139 Potassium 5.1 Chloride 107 Carbon Dioxide 22.1 Anion Gap 10 BUN 81 H Creatinine 3.1 H Estim Creat Clear Calc 13.4 L eGFR 15 L BUN/Creatinine Ratio 26 H Glucose [address] Glu mg/dL Hemoglobin A1c Calculated Osmolality 303 H Calcium 8.6 Corrected Calcium 8.7 Magnesium 2.8 H Iron TIBC Iron Saturation Unsat Iron Binding Ferritin Total Bilirubin 0.2 L AST 11 ALT 10 Alkaline Phosphatase 47 Lactate Dehydrogenase Troponin I < 0.020 B-Natriuretic Peptide Total Protein 6.0 Albumin 3.9 Globulin 2.1 L Albumin/Globulin Ratio 1.9 Lipase 55 H Vitamin B12 Folate TSH Ur Collection Type Catheter Urine Color Lt-Yellow Urine Clarity Turbid A Urine pH 6.5 Ur Specific [place] 1.018 Urine Protein 1+ A Urine Glucose (UA) Negative Urine Ketones Negative Urine Blood 1+ A Urine Nitrite Negative Urine Bilirubin Negative Urine Urobilinogen (Auto) Negative Ur Leukocyte Esterase Positive Urine RBC 1 Urine WBC 16 H Ur Squamous Epith Cells 1 Urine Bacteria 1+ A Hyaline Casts < 1 Ur Culture Indicated? Yes Ur Random Microalbumin U Creat (Microalbumin) Microalb/Creat Ratio Urine Opiates Screen Negative Urine Fentanyl Screen Negative Ur Barbiturates Screen Negative U Amphetamin/Meth Scrn Negative U Benzodiazepines Scrn Negative U Cocaine Metab Screen Negative U Marijuana (THC) Screen Negative Blood Type Antibody Screen Crossmatch Blood Bank Wristband ID 09/28/24 09/28/24 09/28/24 21:10 22:19 22:19 WBC 8.6 RBC 1.69 L* Hgb 5.3 L* Hct 16.2 L* MCV 96 MCH 31.4 MCHC 32.7 RDW Std Deviation 56.6 H Plt Count 155 Neut % (Auto) 83 H Lymph % (Auto) 9 L [place] % (Auto) 6 Eos % (Auto) 0 Baso % (Auto) 1 Neut # (Auto) 7.2 Lymph # (Auto) 0.8 L [place] # (Auto) 0.5 Eos # (Auto) 0.0 Baso # (Auto) 0.1 Immature Gran # (Auto) 0.04 H Absolute Nucleated RBC 0.00 Immature Gran % 1 H Nucleated RBC % 0 PT INR APTT Sodium Potassium Chloride Carbon Dioxide Anion Gap BUN Creatinine Estim Creat Clear Calc eGFR BUN/Creatinine Ratio Glucose Estimated Ave Glu mg/dL Hemoglobin A1c Calculated Osmolality Calcium Corrected Calcium Magnesium Iron Cancelled 30 L TIBC Cancelled Iron Saturation Unsat Iron Binding Ferritin Total Bilirubin AST ALT Alkaline Phosphatase Lactate Dehydrogenase Troponin I B-Natriuretic Peptide 124 H Total Protein Albumin Globulin Albumin/Globulin Ratio Lipase Vitamin B12 Folate TSH Ur Collection Type Urine Color Urine Clarity Urine pH Ur Specific [place] Urine Protein Urine Glucose (UA) Urine Ketones Urine Blood Urine Nitrite Urine Bilirubin Urine Urobilinogen (Auto) Ur Leukocyte Esterase Urine RBC Urine WBC Ur Squamous Epith Cells Urine Bacteria Hyaline Casts Ur Culture Indicated? Ur Random Microalbumin U Creat (Microalbumin) Microalb/Creat Ratio Urine Opiates Screen Urine Fentanyl Screen Ur Barbiturates Screen U Amphetamin/Meth Scrn U Benzodiazepines Scrn U Cocaine Metab Screen U Marijuana (THC) Screen Blood Type Antibody Screen Crossmatch Blood Bank Wristband ID 09/28/24 09/28/24 09/28/24 22:19 22:19 22:19 WBC RBC Hgb Hct MCV MCH MCHC RDW Std Deviation Plt Count Neut % (Auto) Lymph % (Auto) [place] % (Auto) Eos % (Auto) Baso % (Auto) Neut # (Auto) Lymph # (Auto) [place] # (Auto) Eos # (Auto) Baso # (Auto) Immature Gran # (Auto) Absolute Nucleated RBC Immature Gran % Nucleated RBC % PT INR APTT Sodium Potassium Chloride Carbon Dioxide Anion Gap BUN Creatinine Estim Creat Clear Calc eGFR BUN/Creatinine Ratio Glucose Estimated Ave Glu mg/dL Hemoglobin A1c Calculated Osmolality Calcium Corrected Calcium Magnesium Iron TIBC 352 Iron Saturation Cancelled 8 L Unsat Iron Binding Cancelled 322 H Ferritin Cancelled Total Bilirubin AST ALT Alkaline Phosphatase Lactate Dehydrogenase Troponin I B-Natriuretic Peptide Total Protein Albumin Globulin Albumin/Globulin Ratio Lipase Vitamin B12 Folate TSH Ur Collection Type Urine Color Urine Clarity Urine pH Ur Specific [place] Urine Protein Urine Glucose (UA) Urine Ketones Urine Blood Urine Nitrite Urine Bilirubin Urine Urobilinogen (Auto) Ur Leukocyte Esterase Urine RBC Urine WBC Ur Squamous Epith Cells Urine Bacteria Hyaline Casts Ur Culture Indicated? Ur Random Microalbumin U Creat (Microalbumin) Microalb/Creat Ratio Urine Opiates Screen Urine Fentanyl Screen Ur Barbiturates Screen U Amphetamin/Meth Scrn U Benzodiazepines Scrn U Cocaine Metab Screen U Marijuana (THC) Screen Blood Type Antibody Screen [employer] Wristband ID 09/28/24 09/28/24 09/28/24 22:19 22:19 22:19 WBC RBC Hgb Hct MCV MCH MCHC RDW Std Deviation Plt Count Neut % (Auto) Lymph % (Auto) [place] % (Auto) Eos % (Auto) Baso % (Auto) Neut # (Auto) Lymph # (Auto) [place] # (Auto) Eos # (Auto) Baso # (Auto) Immature Gran # (Auto) Absolute Nucleated RBC Immature Gran % Nucleated RBC % PT INR APTT Sodium Potassium Chloride Carbon Dioxide Anion Gap BUN Creatinine Estim Creat Clear Calc eGFR BUN/Creatinine Ratio Glucose Estimated Ave Glu mg/dL Hemoglobin A1c Calculated Osmolality Calcium Corrected Calcium Magnesium Iron TIBC Iron Saturation Unsat Iron Binding Ferritin 16 Total Bilirubin AST ALT Alkaline Phosphatase Lactate Dehydrogenase Cancelled 235 Troponin I B-Natriuretic Peptide Total Protein Albumin Globulin Albumin/Globulin Ratio Lipase Vitamin B12 Cancelled 156 L Folate Cancelled TSH Ur Collection Type Urine Color Urine Clarity Urine pH Ur Specific [place] Urine Protein Urine Glucose (UA) Urine Ketones Urine Blood Urine Nitrite Urine Bilirubin Urine Urobilinogen (Auto) Ur Leukocyte Esterase Urine RBC Urine WBC Ur Squamous Epith Cells Urine Bacteria Hyaline Casts Ur Culture Indicated? Ur Random Microalbumin U Creat (Microalbumin) Microalb/Creat Ratio Urine Opiates Screen Urine Fentanyl Screen Ur Barbiturates Screen U Amphetamin/Meth Scrn U Benzodiazepines Scrn U Cocaine Metab Screen U Marijuana (THC) Screen Blood Type Antibody Screen [employer] Wristband ID 09/28/24 09/29/24 09/29/24 22:19 05:00 07:53 WBC 7.6 RBC 2.51 L Hgb 7.9 L D Hct 23.3 L MCV 93 MCH 31.5 MCHC 33.9 RDW Std Deviation 51.7 H Plt Count 140 Neut % (Auto) 70 Lymph % (Auto) 20 [place] % (Auto) 8 Eos % (Auto) 1 Baso % (Auto) 1 Neut # (Auto) 5.3 Lymph # (Auto) 1.5 [place] # (Auto) 0.6 Eos # (Auto) 0.1 Baso # (Auto) 0.1 Immature Gran # (Auto) 0.05 H Absolute Nucleated RBC 0.00 Immature Gran % 1 H Nucleated RBC % 0 PT INR APTT Sodium 140 Potassium 4.9 Chloride 109 H Carbon Dioxide 23.8 Anion Gap 7 BUN 71 H Creatinine 2.8 H Estim Creat Clear Calc 15.0 L eGFR 17 L BUN/Creatinine Ratio 25 H Glucose [address] Glu mg/dL 100 Hemoglobin A1c 5.1 Calculated Osmolality 299 H Calcium 8.7 Corrected Calcium Magnesium 2.9 H Iron TIBC Iron Saturation Unsat Iron Binding Ferritin Total Bilirubin AST ALT Alkaline Phosphatase Lactate Dehydrogenase Troponin I B-Natriuretic Peptide Total Protein Albumin Globulin Albumin/Globulin Ratio Lipase Vitamin B12 Folate 11.39 TSH 0.97 Ur Collection Type Urine Color Urine Clarity Urine pH Ur Specific [place] Urine Protein Urine Glucose (UA) Urine Ketones Urine Blood Urine Nitrite Urine Bilirubin Urine Urobilinogen (Auto) Ur Leukocyte Esterase Urine RBC Urine WBC Ur Squamous Epith Cells Urine Bacteria Hyaline Casts Ur Culture Indicated? Ur Random Microalbumin 231 U Creat (Microalbumin) 76 Microalb/Creat Ratio 304 H Urine Opiates Screen Urine Fentanyl Screen Ur Barbiturates Screen U Amphetamin/Meth Scrn U Benzodiazepines Scrn U Cocaine Metab Screen U Marijuana (THC) Screen Blood Type A Positive Antibody Screen NEGATIVE Crossmatch See Detail Blood Bank Wristband ID Yes Quality Measures Quality Measures none Advance care planning discussed with:: patient Assessment & Plan Assessment Current Active Medications: Generic Name Dose Route Start Last Admin Trade Name Freq PRN Reason Stop Dose Admin Acetaminophen 650 mg 09/29/24 07:55 Acetaminophen 325 Mg Tablet PO 10/29/24 01:55 Q6H PRN Fever >100.3 Atorvastatin Calcium 80 mg 09/29/24 21:00 Atorvastatin Calcium 20 Mg Tablet PO 10/29/24 20:59 HS [facility] Cyanocobalamin 1,000 mcg 09/29/24 09:00 09/29/24 08:09 Cyanocobalamin Inj 1,000 Mcg/Ml Vial IM 10/01/24 08:59 1,000 mcg QDAY [facility] Administration Magnesium Hydroxide 30 ml 09/29/24 01:56 Milk Of Magnesia Susp 30 Ml Udc PO 10/29/24 01:55 QDAY PRN CONSTIPATION Protocol Multivitamins 1 tab 09/30/24 09:00 Multivitamins Tablet PO 10/30/24 08:59 QDAY [facility] Ondansetron HCl 4 mg 09/28/24 19:09 Ondansetron Inj 2 Mg/Ml Inj 2 Ml IV Q1HR PRN PERSISTENT NAUSEA OR VOMITING Plan 74-year-old female with past medical history of aortic stenosis, CAD s/p stents, hyperlipidemia, and asthma was admitted to the hospital on 09/29/2024 due to acute anemia multifactorial likely secondary to CKD, nutritional, and possible blood loss. #Dizziness #Ground-level fall #Acute anemia likely multifactorial #Under nourished ? Patient came in with complaints of dizziness for the past 3 months and fall 2 weeks ago. ? Patient states that she has been having financial difficulties which had made her unable to eat a proper diet at home. ? Patient states that she normally eats sandwiches once times a day along with coughing. ? Initial hemoglobin was 5.3, iron 30, iron saturation 8%, ferritin 16, B12 156, and folate 11.39 ?Patient received 2 PRBCs ?Repeat hemoglobin was 7.9 Plan: ? Pending FOBT ? Will continue vitamin B12 injections and multivitamins ?Will transfuse hemoglobin less than 7 ?Will consider GI evaluation once patient's FOBT comes back. ?Refer to registered dietitian ? Will continue to monitor #Acute on chronic CKD, stage IV ? Baseline creatinine 2.4 on 04/2024 ?On admission BUN 81 creatinine 3.1 ?Creatinine 2.8 today Plan: ? Avoid nephrotoxic agents ? Renally dose medications ? Will consider nephrology consultation if kidney function does not improve #Aortic stenosis #CAD status post stents ? Patient was scheduled for heart cath by her senior game developer on 10/03/2024 ?Echo the following findings: Severe calcific Aortic valve mean gradient 47mmHg, vmax 4.4m/s. Peak Gradient 78 mm hG Normal LV size and function. Mild LVH. Estimated EF 60-65% Normal RV size and function Mild mitral regurgitation Trace tricuspid regurgitation Plan: ? Will hold off Plavix for now until GI bleed is ruled out ? Consulted cardiology, appreciate commendations #Hx of hypertension #Hx of hyperlipidemia ?Start patient on atorvastatin 80 mg at bedtime ? Holding antihypertensive medication for now patient's blood pressure has been soft since admission. Disposition: Patient seen in [facility] had 2PRBC transfused, consulted cardio for aortic stenosis, pending FOBT. . Diet: Renal GI prophylaxis: not indicated DVT prophylaxis: SCDs Code:DNR Case disclosed with Attending Dr. Cummins and My senior Dr. Huang PGY3. Weston Bermudez PGY1 Attending Provider Attestation/Addendum I have discussed and was present for the essential components of the history, physical examination, diagnosis, and treatment plan with the resident. I agree with the patient's care as documented by the resident and amended herein by me. Manuel Cummins DO. Although this document has been carefully reviewed, there may still be some phonetic and other typographical errors. These errors are purely grammatical due to imperfections in the software program and should not be construed in any way to compromise the substance of the patient's medical care during this visit.
[2024-09-29] MEDS: ATORVASTATIN CALCIUM 20 MG TABLET 80 MG PO (20:07)
[2024-09-30] VITALS (10 sets, daily range): BP systolic 95–122; BP diastolic 42–55; PULSE 67–83; RESP 13–19; TEMP 36.1–36.3; O2SAT 94–97; BMI 32.9; BMI 15.0
[2024-09-30 08:58] LABS: Basophils # (Auto) 0.1 Thou/mm3 (0.0-0.2); Basophils % (Auto) 1 % (0-2.5); Eosinophils # (Auto) 0.1 Thou/mm3 (0.0-0.5); Eosinophils % (Auto) 2 % (0-10); Hematocrit 23.1 % (36.0-46.0); Immature Granulocytes % (Auto) 1 % (0-0); Immature Granulocytes Auto 0.03 Thou/mm3 (0.00-0.00); Lymphocytes # (Auto) 1.3 Thou/mm3 (1.0-4.8); Lymphocytes % (Auto) 21 % (10-50); Mean Corpuscular HGB Conc 32.5 g/dl (31.0-37.0); Mean Corpuscular Hemoglobin 30.9 pg (25.0-35.0); Mean Corpuscular Volume 95 fL (80-100); Monocytes # (Auto) 0.4 Thou/mm3 (0.0-0.8); Monocytes % (Auto) 6 % (0-12); Neutrophils # (Auto) 4.2 Thou/mm3 (1.8-7.7); Neutrophils % (Auto) 70 % (37-80); Nucleated Red Blood Cell % 0 /100 WBC (0); Platelet Count 133 Thou/mm3 (140-440); RDW Standard Deviation 55.7 fL (36.4-46.3); Red Blood Count 2.43 Miln/mm3 (4.00-5.20)
[2024-09-30 09:08] LABS: Hemoglobin 7.5 g/dL (12.0-16.0)
[2024-09-30 09:22] LABS: Alanine Aminotransferase < 7 U/L (10-49); Albumin, Serum 3.6 gm/dL (3.4-4.8); Albumin/Globulin Ratio 1.7 (1.2-2.2); Alkaline Phosphatase 46 U/L (46-116); Anion Gap 8 (7-16); Aspartate Amino Transferase 20 U/L (0-34); BUN/Creatinine Ratio 25 Ratio (12-20); Bilirubin,Total 0.4 mg/dL (0.3-1.2); Blood Urea Nitrogen 60 mg/dL (9-23); Calcium 8.8 mg/dL (8.3-10.6); Calcium (Corrected) 9.1 mg/dL (8.5-10.1); Carbon Dioxide 23.5 mMol/L (20.0-31.0); Chloride 111 mMol/L (98-107); Creatinine (Component) 2.4 mg/dL (0.6-1.3); Estimated Creatinine Clearance 17.5 mL/min (>60); Globulin 2.1 gm/dL (2.3-3.5); Glucose 115 mg/dL (74-106); Osmolality,Calculated 301 (275-295); Potassium 4.5 mMol/L (3.4-5.1); Sodium 142 mMol/L (136-145); Total Protein 5.7 gm/dL (5.7-8.2); eGFR 20 See Note
--- NOTE | 2024-09-30 10:38 | ESPR_ITS ---
<Statement entered by Kirsten Goins MD - 09/30/24 15:03> I personally reviewed the findings along with the resident physician Dr. Piyush Obando MD, PGY 2 agree with the treatment plan recommendation patient should have 1 more unit of transfusion to hemoglobin at least 8.5 prior to discharge the patient home GI workup can be completed as an outpatient if so wished patient will have a cardiac evaluation as well next week for assessment of severe aortic stenosis and coronary artery disease in preparation for possible TAVR procedure in the next few weeks. She clearly has symptomatic severe aortic stenosis also severe anemia making her very symptomatic. Documentation for date of: 09/30/24 Subjective Subjective Interval history: Patient seen and assessed at bedside. Patient states to be feeling well. Denies any symptoms of dizziness or lightheadedness, although she says this only occurs when standing. Patient denies any palpitations, chest pain, or shortness of breath. Patient did not be sure lunch today. Exam Vital Signs Temp Pulse Resp BP Pulse Ox O2 Del Method O2 Flow Rate 97.0 F 68 15 101/55 L 95 Room Air 2 09/30/24 08:00 09/30/24 08:00 09/30/24 08:00 09/30/24 08:00 09/30/24 08:00 09/30/24 08:00 09/28/24 18:26 Narrative Exam General: Pleasant elderly female, AO x 3. In no acute distress. Heart: Regular rate and rhythm, ejection systolic murmur on auscultation at both cardiac apex and right second intercostal chest area. Lungs: Clear to auscultation with no wheezing or crackles. Abdomen: Soft, nondistended, nontender, positive bowel sounds. ?No guarding or rebound tenderness. Extremities: Trace left lower extremity edema, 1+ right lower extremity edema. Skin: No rash or ecchymoses. Objective Labs 09/30/24 08:16 09/30/24 08:16 Labs: Laboratory Results - last 24 hr 09/30/24 08:16 WBC 6.0 RBC 2.43 L Hgb 7.5 L Hct 23.1 L MCV 95 MCH 30.9 MCHC 32.5 RDW Std Deviation 55.7 H Plt Count 133 L Neut % (Auto) 70 Lymph % (Auto) 21 [place] % (Auto) 6 Eos % (Auto) 2 Baso % (Auto) 1 Neut # (Auto) 4.2 Lymph # (Auto) 1.3 [place] # (Auto) 0.4 Eos # (Auto) 0.1 Baso # (Auto) 0.1 Immature Gran # (Auto) 0.03 H Absolute Nucleated RBC 0.00 Immature Gran % 1 H Nucleated RBC % 0 Sodium 142 Potassium 4.5 Chloride 111 H Carbon Dioxide 23.5 Anion Gap 8 BUN 60 H Creatinine 2.4 H Estim Creat Clear Calc 17.5 L eGFR 20 L BUN/Creatinine Ratio 25 H Glucose 115 H Calculated Osmolality 301 H Calcium 8.8 Corrected Calcium 9.1 Total Bilirubin 0.4 AST 20 ALT < 7 L Alkaline Phosphatase 46 Total Protein 5.7 Albumin 3.6 Globulin 2.1 L Albumin/Globulin Ratio 1.7 Quality Measures Quality Measures none Advance care planning discussed with:: patient Assessment & Plan Assessment Current Active Medications: Generic Name Dose Route Start Last Admin Trade Name Freq PRN Reason Stop Dose Admin Acetaminophen 650 mg 09/29/24 07:55 Acetaminophen 325 Mg Tablet PO 10/29/24 01:55 Q6H PRN Fever >100.3 Atorvastatin Calcium 80 mg 09/29/24 21:00 09/29/24 20:07 Atorvastatin Calcium 20 Mg Tablet PO 10/29/24 20:59 80 mg HS [facility] Administration Cyanocobalamin 1,000 mcg 09/29/24 09:00 09/29/24 08:09 Cyanocobalamin Inj 1,000 Mcg/Ml Vial IM 10/01/24 08:59 1,000 mcg QDAY [facility] Administration Dextrose 25 ml 09/30/24 08:49 Dextrose 50%-Water Inj 50 Ml Syringe IV 10/30/24 08:48 Q15MIN PRN BG 50-70 responsive npo pt Dextrose 50 ml 09/30/24 08:49 Dextrose 50%-Water Inj 50 Ml Syringe IV 10/30/24 08:48 Q15MIN PRN BG <50 OR BG <70 & pt unresponsive Glucagon 1 mg 09/30/24 08:49 Glucagon Inj 1 Mg Vial IM Q15MIN PRN BG <70, and no IV access Insulin Human Lispro 0 unit 09/30/24 11:30 Insulin Lispro (Admelog) 1 Unit/0.01 Ml Unit SC 10/30/24 11:29 AC [facility] Protocol Magnesium Hydroxide 30 ml 09/29/24 01:56 Milk Of Magnesia Susp 30 Ml Udc PO 10/29/24 01:55 QDAY PRN CONSTIPATION Protocol Multivitamins 1 tab 09/30/24 09:00 Multivitamins Tablet PO 10/30/24 08:59 QDAY [facility] Ondansetron HCl 4 mg 09/28/24 19:09 Ondansetron Inj 2 Mg/Ml Inj 2 Ml IV Q1HR PRN PERSISTENT NAUSEA OR VOMITING Plan Patient is a 74-year-old female admitted for syncopal/presyncopal episodes. Cardiology consulted for syncopal workup. #Syncope/presyncope #Severe aortic stenosis #History of CAD status post PCI Patient reports syncope/presyncope for the past few months. Syncopal episodes likely related to anemia and aortic stenosis. Troponin within normal limits Patient has cardiac echo showing severe aortic stenosis Patient would likely benefit from TAVR. If patient is stabilized she may get cath during hospitalization, or if unstable will postpone to a later date. Recommend patient get anemia workup and keep hemoglobin above 8. # Acute anemia # Acute on chronic kidney disease, stage IV #History of hypertension # History of hyperlipidemia Managed per primary team Case discussed with elementary school teacher's aide Dr. Buster Obando MD PGY3
[2024-09-30] MEDS: CYANOCOBALAMIN INJ 1,000 mCg/ML VIAL 1000 MCG IM (11:50)
[2024-09-30] MEDS: MULTIVITAMINS TABLET 1 TAB PO (11:50)
[2024-09-30] MEDS: LACTULOSE SYRUP 20 GM/30 ML UDC PO (11:50)
[2024-09-30] MEDS: SENNA TABLET 1 TAB PO (11:50)
--- NOTE | 2024-09-30 13:56 | ESPR_ITS ---
Documentation for date of: 09/30/24 Subjective Subjective Interval history: Patient seen at bedside this morning. No overnight events. Consulted GI today as patient's hemoglobin had dropped and it was most likely due to a GI bleed. Patient hemoglobin 7.5 today no active signs of bleeding. Due to cardiac history 1 PRBC was given to maintain hemoglobin above 8. Patient had a bowel movement today and FOBT was positive. No other complaints at this time. Ordered physical therapy. Exam Vital Signs Temp Pulse Resp BP Pulse Ox O2 Del Method O2 Flow Rate 97.0 F 83 13 122/46 L 95 Room Air 2 09/30/24 12:00 09/30/24 12:00 09/30/24 12:00 09/30/24 12:09/30/24 12:09/30/24 12:09/28/24 18:26 Narrative Exam General: A/O x3, no acute distress, well-nourished, well-developed Eyes: PERRL, EOMI. Anicteric, vision grossly intact. Ears: No ear pain, no ear discharge, Hearing grossly intact. Nose: No nasal discharge. Mouth/Throat: Dry mucous membranes, no redness, no lesions. Neck: Neck supple, non-tender, no cervical lymphadenopathy. Lungs: Clear YASMINE to auscultation and percussion, No accessory muscle use. Cardio: Normal S1/S2, regular rhythm, systolic ejection murmur, no JVD Abdomen: Soft, non-tender, no palpable masses, peristalsis present, no guarding or rebound. Extremities: Symmetrical, no significant deformities, trace peripheral edema , non-tender, peripheral pulses presents. Skin: No rashes, no lesions, warm to touch. Neuro: No focal neurological deficits. motor and sensory intact Objective Labs 09/30/24 08:16 09/30/24 08:16 Labs: Laboratory Results - last 24 hr 09/28/24 09/30/24 22:19 08:16 WBC 6.0 RBC 2.43 L Hgb 7.5 L Hct 23.1 L MCV 95 MCH 30.9 MCHC 32.5 RDW Std Deviation 55.7 H Plt Count 133 L Neut % (Auto) 70 Lymph % (Auto) 21 [place] % (Auto) 6 Eos % (Auto) 2 Baso % (Auto) 1 Neut # (Auto) 4.2 Lymph # (Auto) 1.3 [place] # (Auto) 0.4 Eos # (Auto) 0.1 Baso # (Auto) 0.1 Immature Gran # (Auto) 0.03 H Absolute Nucleated RBC 0.00 Immature Gran % 1 H Nucleated RBC % 0 Sodium 142 Potassium 4.5 Chloride 111 H Carbon Dioxide 23.5 Anion Gap 8 BUN 60 H Creatinine 2.4 H Estim Creat Clear Calc 17.5 L eGFR 20 L BUN/Creatinine Ratio 25 H Glucose 115 H Calculated Osmolality 301 H Calcium 8.8 Corrected Calcium 9.1 Total Bilirubin 0.4 AST 20 ALT < 7 L Alkaline Phosphatase 46 Total Protein 5.7 Albumin 3.6 Globulin 2.1 L Albumin/Globulin Ratio 1.7 Blood Type A Positive Antibody Screen NEGATIVE Crossmatch See Detail Blood Bank Wristband ID Yes Quality Measures Quality Measures none Advance care planning discussed with:: patient Assessment & Plan Assessment Current Active Medications: Generic Name Dose Route Start Last Admin Trade Name Freq PRN Reason Stop Dose Admin Acetaminophen 650 mg 09/29/24 07:55 Acetaminophen 325 Mg Tablet PO 10/29/24 01:55 Q6H PRN Fever >100.3 Atorvastatin Calcium 80 mg 09/29/24 21:00 09/29/24 20:07 Atorvastatin Calcium 20 Mg Tablet PO 10/29/24 20:59 80 mg HS FELTON Administration Cyanocobalamin 1,000 mcg 09/29/24 09:00 09/30/24 11:50 Cyanocobalamin Inj 1,000 Mcg/Ml Vial IM 10/01/24 08:59 1,000 mcg QDAY FELTON Administration Dextrose 25 ml 09/30/24 08:49 Dextrose 50%-Water Inj 50 Ml Syringe IV 10/30/24 08:48 Q15MIN PRN BG 50-70 responsive npo pt Dextrose 50 ml 09/30/24 08:49 Dextrose 50%-Water Inj 50 Ml Syringe IV 10/30/24 08:48 Q15MIN PRN BG <50 OR BG <70 & pt unresponsive Glucagon 1 mg 09/30/24 08:49 Glucagon Inj 1 Mg Vial IM Q15MIN PRN BG <70, and no IV access Insulin Human Lispro 0 unit 09/30/24 11:30 09/30/24 11:55 Insulin Lispro (Admelog) 1 Unit/0.01 Ml Unit SC 10/30/24 11:29 Not Given AC FELTON Protocol Magnesium Hydroxide 30 ml 09/29/24 01:56 Milk Of Magnesia Susp 30 Ml Udc PO 10/29/24 01:55 QDAY PRN CONSTIPATION Protocol Multivitamins 1 tab 09/30/24 09:00 09/30/24 11:50 Multivitamins Tablet PO 10/30/24 08:59 1 tab QDAY FELTON Administration Ondansetron HCl 4 mg 09/28/24 19:09 Ondansetron Inj 2 Mg/Ml Inj 2 Ml IV Q1HR PRN PERSISTENT NAUSEA OR VOMITING Plan 74-year-old female with past medical history of aortic stenosis, CAD s/p stents, hyperlipidemia, and asthma was admitted to the hospital on 09/29/2024 due to acute anemia multifactorial likely secondary to CKD, nutritional, and possible blood loss. #Dizziness #Ground-level fall #Acute anemia likely multifactorial #Under nourished ? Patient came in with complaints of dizziness for the past 3 months and fall 2 weeks ago. ? Patient states that she has been having financial difficulties which had made her unable to eat a proper diet at home. ? Patient states that she normally eats sandwiches once times a day along with coughing. ? Initial hemoglobin was 5.3, iron 30, iron saturation 8%, ferritin 16, B12 156, and folate 11.39 ?Patient received 2 PRBCs ?Additional 1 PRBC today -Hgb 7.5 today -Patient had a bowel movement today and FOBT was positive Plan: ? Will continue vitamin B12 injections and multivitamins ?Will transfuse hemoglobin less than 8, keep above 8 given cardiac history ?Gi consulted, appreciate reccomendations. ?Refer to registered dietitian ? Will continue to monitor #Acute on chronic CKD, stage IV ? Baseline creatinine 2.4 on 04/2024 ?On admission BUN 81 creatinine 3.1 ?Creatinine 2.4 today Plan: ? Avoid nephrotoxic agents ? Renally dose medications ? Will consider nephrology consultation if kidney function does not improve #Aortic stenosis #CAD status post stents ? 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 Peak Gradient 78 mm hG Normal LV size and function. Mild LVH. Estimated EF 60-65% Normal RV size and function Mild mitral regurgitation Trace tricuspid regurgitation Plan: ? Will hold off Plavix for now given possible GI bleed ? Consulted cardiology, appreciate commendations #Hx of hypertension #Hx of hyperlipidemia ?Start patient on atorvastatin 80 mg at bedtime ? Holding antihypertensive medication for now patient's blood pressure has been soft since admission. Disposition: Patient seen in [facility] had 1 PRBC transfused, consulted cardio for aortic stenosis and GI for possible GI bleed . Diet: Renal GI prophylaxis: not indicated DVT prophylaxis: SCDs Code:DNR Case disclosed with Attending Dr. Maria G Bermudez PGY1 Attending Provider Attestation/Addendum Blood glucose has been high but adequately controlled now, will continue current regimen I have discussed and was present for the essential components of the history, physical examination, diagnosis, and treatment plan with the resident. I agree with the patient's care as documented by the resident and amended herein by me. Manuel Cummins DO. Patient seen and evaluated this AM. In Short, patient is a 74-year-old female with significant past medical history of severe aortic stenosis, CAD status post stenting, hyperlipidemia and asthma who was admitted to the hospital on 09/29 due to severe anemia requiring transfusion which was likely multifactorial secondary to poor p.o. intake and possible GI bleed. No acute events overnight, vital signs stable, patient afebrile. Significant labs include a hemoglobin stable at 7.5. BMP significant for a BUN of 60 and creatinine of 2.4 which is improved from previous day. Physical therapy pending. Will continue vitamin and iron supplementation, gastroenterology was previously consulted, appreciate recommendations. Will continue to monitor creatinine function although improved today. Presently holding the patient's home Plavix in setting of possible GI bleed, patient was also scheduled for right heart cath on 10/03/2024 which can still be done on the outpatient basis per cardiology. Will restart home meds as appropriate. Will continue to monitor closely Medications: Atorvastatin 80 mg at bedtime B12 Sliding scale insulin Multivitamin Zofran as needed Although this document has been carefully reviewed, there may still be some phonetic and other typographical errors. These errors are purely grammatical due to imperfections in the software program and should not be construed in any way to compromise the substance of the patient's medical care during this visit.
--- NOTE | 2024-09-30 17:30 | PD.IMCONS ---
HPI Data of Consult Requesting Physician: Kris Damian MD Primary Care Provider: Ant Valentin MD Consult Narrative Reason for consult: H/H 5.3/16.2 Hemoccult positive stool History of present illness: 74 years old female presented for progressive dizziness and vertigo progressively getting worse for the last 3 months She fell down but did not hit her head On admission hemoglobin hematocrit 5.3 and 16.2 and Hemoccult positive stool narrative examination by the ER physician who had called me in the middle of the night for admission Patient denies any history of renato GI bleeding in the form of hematemesis melena or bright red bleeding per rectum She had a nonbilious vomiting prior to coming to the hospital Platelet count was 155,000 subsequently went down to 133,000 Patient has a history of coronary artery disease status post PCI on Plavix history of hypertension history of hyperlipidemia and aortic stenosis and scheduled for a cardiac catheterization by Dr. Ellen Goins on 10/03/2023 cc:: cc: Kris Damian MD Review of Systems Review of Systems Systems Reviewed: All systems reviewed, normal except as documented Past Medical History Surgical History OTHER SURGICAL HX: As in the history of present illness Meds Home Medications and Allergies Home Medications ?Medication ?Instructions ?Recorded ?Confirmed ?Type benazepril 40 mg tablet 40 mg PO QDAY 08/03/23 09/29/24 History clopidogrel 75 mg tablet 75 mg PO QAM 08/03/23 09/29/24 History rosuvastatin 40 mg tablet 40 mg PO QPM 08/03/23 09/29/24 History furosemide 20 mg tablet 20 mg PO QDAY 09/29/24 09/29/24 History Allergies Allergy/AdvReac Type Severity Reaction Status Date / Time No Known Allergies Allergy Verified 08/03/23 09:37 Exam Vital Signs Temp Pulse Resp BP Pulse Ox O2 Del Method O2 Flow Rate 97 F 68 19 107/50 L 97 Room Air 2 09/30/24 17:06 09/30/24 17:06 09/30/24 17:06 09/30/24 17:06 09/30/24 17:06 09/30/24 16:00 09/28/24 18:26 Routine Respiratory Exam Comments: Normal to auscultation Routine Cardiovascular Exam Comments: Systolic murmur suggestive of aortic stenosis Routine Abdominal Exam Comments: Soft nontender Results Labs 09/30/24 08:16 09/30/24 08:16 Labs: Short CBC 09/30/24 Range/Units 08:16 WBC 6.0 (3.6-11.0) Thou/mm3 Hgb 7.5 L (12.0-16.0) g/dL Hct 23.1 L (36.0-46.0) % Plt Count 133 L (140-440) Thou/mm3 BMP 09/30/24 08:16 Sodium 142 Potassium 4.5 Chloride 111 H Carbon Dioxide 23.5 BUN 60 H Creatinine 2.4 H Glucose 115 H Calcium 8.8 Liver Function 09/30/24 Range/Units 08:16 Total Bilirubin 0.4 (0.3-1.2) mg/dL AST 20 (0-34) U/L ALT < 7 L (10-49) U/L Alkaline Phosphatase 46 (46-116) U/L Albumin 3.6 (3.4-4.8) gm/dL Assessment and Plan Additional Assessment & Plan Additional Plan: # Acute on chronic posthemorrhagic anemia with Hemoccult positive stool Plan Agree with the blood transfusion Consent obtained for fiberoptic upper endoscopy after blood transfusion scheduled for tomorrow morning to rule out any peptic ulcer disease prior to cardiac catheterization as patient may need anticoagulation Will follow the patient Other medical problems include # Coronary artery disease status post PCI # Aortic stenosis # Essential hypertension # Hyperlipidemia # Syncope most likely due to low blood volume may also be related to aortic stenosis Thank you very much for the opportunity to participate in the care of this patient
[2024-09-30] MEDS: ATORVASTATIN CALCIUM 20 MG TABLET 80 MG PO (20:12)
[2024-10-01] VITALS (15 sets, daily range): BP systolic 90–129; BP diastolic 40–69; PULSE 62–78; RESP 14–21; TEMP 36.1–36.7; O2SAT 92–100
[2024-10-01 06:07] LABS: Basophils # (Auto) 0.1 Thou/mm3 (0.0-0.2); Basophils % (Auto) 1 % (0-2.5); Eosinophils # (Auto) 0.2 Thou/mm3 (0.0-0.5); Eosinophils % (Auto) 3 % (0-10); Hematocrit 25.6 % (36.0-46.0); Immature Granulocytes % (Auto) 1 % (0-0); Immature Granulocytes Auto 0.03 Thou/mm3 (0.00-0.00); Lymphocytes # (Auto) 1.7 Thou/mm3 (1.0-4.8); Lymphocytes % (Auto) 27 % (10-50); Mean Corpuscular HGB Conc 32.8 g/dl (31.0-37.0); Mean Corpuscular Hemoglobin 30.3 pg (25.0-35.0); Mean Corpuscular Volume 92 fL (80-100); Monocytes # (Auto) 0.6 Thou/mm3 (0.0-0.8); Monocytes % (Auto) 9 % (0-12); Neutrophils # (Auto) 3.8 Thou/mm3 (1.8-7.7); Neutrophils % (Auto) 59 % (37-80); Nucleated Red Blood Cell % 0 /100 WBC (0); Platelet Count 134 Thou/mm3 (140-440); RDW Standard Deviation 55.6 fL (36.4-46.3); Red Blood Count 2.77 Miln/mm3 (4.00-5.20); White Blood Count 6.4 Thou/mm3 (3.6-11.0)
[2024-10-01 06:08] LABS: Hemoglobin 8.4 g/dL (12.0-16.0)
[2024-10-01 06:25] LABS: Alanine Aminotransferase < 7 U/L (10-49); Albumin, Serum 3.4 gm/dL (3.4-4.8); Albumin/Globulin Ratio 1.7 (1.2-2.2); Alkaline Phosphatase 45 U/L (46-116); Anion Gap 6 (7-16); Aspartate Amino Transferase 18 U/L (0-34); BUN/Creatinine Ratio 25 Ratio (12-20); Bilirubin,Total 0.5 mg/dL (0.3-1.2); Blood Urea Nitrogen 50 mg/dL (9-23); Calcium 8.6 mg/dL (8.3-10.6); Calcium (Corrected) 9.1 mg/dL (8.5-10.1); Carbon Dioxide 22.7 mMol/L (20.0-31.0); Chloride 112 mMol/L (98-107); Glucose 83 mg/dL (74-106); Osmolality,Calculated 293 (275-295); Potassium 4.5 mMol/L (3.4-5.1); Sodium 141 mMol/L (136-145); Total Protein 5.4 gm/dL (5.7-8.2); eGFR 25 See Note
[2024-10-01] MEDS: PANTOPRAZOLE INJ 40 MG VIAL IV (08:35)
--- NOTE | 2024-10-01 15:05 | ESPR_ITS ---
RE: VERENICE ROBERTS : 1950 DATE OF SERVICE: 10/01/2024 SUBJECTIVE: Verenice Roberts is here for cardiovascular assessment. The patient is admitted to the hospital for severe aortic stenosis, GI bleeding, severe anemia, required transfusion. She was transfused again another unit. Hemoglobin is stable now at 8.4 . The patient is scheduled for EGD by Dr. Atwood. She has severe aortic stenosis, scheduled for angiogram 2 days from now. OBJECTIVE: Vital Signs: Blood pressure 100/49, pulse rate 68, respirations 16, temperature normal. Neck: Supple. No JVD. Lungs: Clear. Heart: Sounds regular. Loud systolic murmur heard. Abdomen: Thin and soft. Extremities: No edema. Genitourinary/Rectal: Not performed. ASSESSMENT: 1. Severe anemia, possible gastrointestinal bleeding. 2. Severe aortic stenosis. 3. Chronic kidney disease. PLAN: Continue medical management. Monitor the patient closely for any further bleeding. She is scheduled for endoscopy today. If she is stable, she can be discharged now and I will see her as an outpatient as scheduled for cardiac catheterization on 10/03 as scheduled. DT: 11:22:23 TT: 14:44:00 Ref: [id number] - TID: [id number] [facility]
--- NOTE | 2024-10-01 15:05 | PD.RESPRO ---
Documentation for date of: 10/01/24 Subjective Subjective Interval history: Patient was examined bedside this morning, no acute overnight events. Patient is pending EGD . Her hemoglobin today was 8.4 Exam Vital Signs Temp Pulse Resp BP Pulse Ox O2 Del Method O2 Flow Rate 97.5 F 78 16 129/51 L 92 L Room Air 2 10/01/24 12:00 10/01/24 13:13 10/01/24 12:00 10/01/24 13:13 10/01/24 12:00 10/01/24 12:00 09/28/24 18:26 Narrative Exam GENERAL: Comfortable adult seen resting comfortably in hospital bed, no acute distress, pale looking VITALS: All vitals were reviewed and the pulse ox is 98% on room air HEENT: Normocephalic, atraumatic. Pupils are equal and reactive. Oral mucosa is moist. NECK: Supple, nontender, no JVD CHEST: Symmetrical, atraumatic and with equal expansion ,Nontender on palpation CARDIOVASCULAR: Heart regular rhythm & rate. S1/S2.ejection systolic murmur on auscultation at both cardiac apex and right second intercostal chest area. LUNGS: Clear to auscultation bilaterally with symmetrical chest rise. No laboring tachypnea or wheezing. No intercostal subcostal retraction. No rales and no rhonchi. ABDOMEN: Soft, flat, nontender to palpation, no guarding or rebound tenderness. Active and normal bowel sounds. EXTREMITIES:Moves all 4 extremities,No B/L LE edema. SKIN: Warm and dry, no jaundice or rashes noted. NEURO: Patient is AO x 3, Cranial nerves II through XII grossly intact. There is no focal neurologic deficits noted. PSYCHIATRIC: Patient is in normal mood, cooperative, no SI or HI or hallucinations. Objective Labs 10/01/24 05:31 10/01/24 05:31 Labs: Laboratory Results - last 24 hr 09/28/24 10/01/24 22:19 05:31 WBC 6.4 RBC 2.77 L Hgb 8.4 L Hct 25.6 L MCV 92 MCH 30.3 MCHC 32.8 RDW Std Deviation 55.6 H Plt Count 134 L Neut % (Auto) 59 Lymph % (Auto) 27 [place] % (Auto) 9 Eos % (Auto) 3 Baso % (Auto) 1 Neut # (Auto) 3.8 Lymph # (Auto) 1.7 [place] # (Auto) 0.6 Eos # (Auto) 0.2 Baso # (Auto) 0.1 Immature Gran # (Auto) 0.03 H Absolute Nucleated RBC 0.00 Immature Gran % 1 H Nucleated RBC % 0 Sodium 141 Potassium 4.5 Chloride 112 H Carbon Dioxide 22.7 Anion Gap 6 L BUN 50 H Creatinine 2.0 H Estim Creat Clear Calc 21.0 L eGFR 25 L BUN/Creatinine Ratio 25 H Glucose 83 Calculated Osmolality 293 Calcium 8.6 Corrected Calcium 9.1 Total Bilirubin 0.5 AST 18 ALT < 7 L Alkaline Phosphatase 45 L Total Protein 5.4 L Albumin 3.4 Globulin 2.0 L Albumin/Globulin Ratio 1.7 Blood Type A Positive Antibody Screen NEGATIVE Crossmatch See Detail Blood Bank Wristband ID Yes Quality Measures Quality Measures none Advance care planning discussed with:: patient Assessment & Plan Assessment Current Active Medications: Generic Name Dose Route Start Last Admin Trade Name Freq PRN Reason Stop Dose Admin Acetaminophen 650 mg 09/29/24 07:55 Acetaminophen 325 Mg Tablet PO 10/29/24 01:55 Q6H PRN Fever >100.3 Atorvastatin Calcium 80 mg 09/29/24 21:00 09/30/24 20:12 Atorvastatin Calcium 20 Mg Tablet PO 10/29/24 20:59 80 mg HS FELTON Administration Dextrose 25 ml 09/30/24 08:49 Dextrose 50%-Water Inj 50 Ml Syringe IV 10/30/24 08:48 Q15MIN PRN BG 50-70 responsive npo pt Dextrose 50 ml 09/30/24 08:49 Dextrose 50%-Water Inj 50 Ml Syringe IV 10/30/24 08:48 Q15MIN PRN BG <50 OR BG <70 & pt unresponsive Glucagon 1 mg 09/30/24 08:49 Glucagon Inj 1 Mg Vial IM Q15MIN PRN BG <70, and no IV access Insulin Human Lispro 0 unit 09/30/24 11:30 10/01/24 11:14 Insulin Lispro (Admelog) 1 Unit/0.01 Ml Unit SC 10/30/24 11:29 Not Given AC FELTON Protocol Magnesium Hydroxide 30 ml 09/29/24 01:56 Milk Of Magnesia Susp 30 Ml Udc PO 10/29/24 01:55 QDAY PRN CONSTIPATION Protocol Multivitamins 1 tab 09/30/24 09:00 10/01/24 08:35 Multivitamins Tablet PO 10/30/24 08:59 Not Given QDAY [facility] Ondansetron HCl 4 mg 09/28/24 19:09 Ondansetron Inj 2 Mg/Ml Inj 2 Ml IV Q1HR PRN PERSISTENT NAUSEA OR VOMITING Pantoprazole Sodium 40 mg 10/01/24 09:00 10/01/24 08:35 Pantoprazole Inj 40 Mg Vial IV 10/31/24 08:59 40 mg QDAY [facility] Administration Plan 74-year-old female with past medical history of aortic stenosis, CAD s/p stents, hyperlipidemia, and asthma was admitted to the hospital on 09/29/2024 due to acute anemia multifactorial likely secondary to CKD, nutritional, and possible blood loss. #Acute anemia likely multifactorial #Dizziness- resolved #Ground-level fall #Under nourished ? Patient came in with complaints of dizziness for the past 3 months and fall 2 weeks ago. ? Patient states that she has been having financial difficulties which had made her unable to eat a proper diet at home. ? Patient states that she normally eats sandwiches once times a day along with coughing. - FOBT was positive ? Initial hemoglobin was 5.3, iron 30, iron saturation 8%, ferritin 16, B12 156, and folate 11.39 ?Patient received 3 PRBCs -Hgb 8.4 -Will continue vitamin B12 injections and multivitamins ?Will transfuse hemoglobin less than 8, keep above 8 given cardiac history ?Gi consulted, appreciate reccomendations. EGD today ?Refer to registered dietitian #Acute on chronic CKD, stage IV- improving ? Baseline creatinine 2.4 on 04/2024 ?On admission BUN 81 creatinine 3.1 ?Creatinine 2 today ? Avoid nephrotoxic agents ? Renally dose medications ? Will consider nephrology consultation if kidney function does not improve #Aortic stenosis #CAD status post stents ? 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 Peak Gradient 78 mm hG, Normal LV size and function. Mild LVH. Estimated EF 60-65%,Normal RV size and function Mild mitral regurgitation Trace tricuspid regurgitation ? Will hold off Plavix for now given possible GI bleed -Cardiology Recommended Patient Can Have Her Cardiac Cath as outpatient #Hx of hypertension #Hx of hyperlipidemia ?Start patient on atorvastatin 80 mg at bedtime ? Holding antihypertensive medication for now patient's blood pressure has been soft since admission. Disposition: EGD today Diet: Renal GI prophylaxis: protonix DVT prophylaxis: SCDs Code:DNR Discussed the patient with my attending Dr Linares, Kayleen Huang MD,PGY-3 Attending Provider Attestation/Addendum I have examined the patient, reviewed labs and imaging findings, discussed the case with the resident(s), and reviewed entered orders. I agree with the plan of care as outlined in this note, with these additional summaries/recommendations: Patient seen at bedside. No acute overnight events. Patient reports dizziness that was present on admission has resolved. Patient was found to have symptomatic anemia on admission secondary to GI bleed. Hemoglobin on admission 5.3 and received 3 units PRBCs. Hemoglobin stable at 8.3 today. Patient is currently n.p.o. and pending EGD with gastroenterology. Patient was also found to have ARIES on CKD secondary to prerenal azotemia in the setting of GI bleed. Overall renal function continues to improve and creatinine down to 2.0 from 2.8 on admission. Continue to renally dose medications and avoid nephrotoxic agents. Patient has history of CAD with stent placement and severe aortic stenosis. Most recent echocardiogram revealed severe calcific aortic valve with mean gradient 47 mmHg, V-max 4.4M/S, and peak gradient 78 mmHg. Hold Plavix for now in setting of GI bleed. Patient has scheduled cardiac catheterization on 10/03/2024 and cardiology following. If patient stabilizes cardiac cath can likely be completed on outpatient basis. 09/28/2024 urine culture grew Proteus mirabilis although patient has no urinary symptoms to report at this time. Patient on insulin sliding scale although denies history of diabetes and A1c 5.1%. Likely no hypoglycemic agents required on discharge and can be monitored outpatient. Patient updated on the plan and in agreement. Repeat hematology and chemistry panel in AM. Dr. Linares
--- NOTE | 2024-10-01 15:43 | SUR.PHASEI ---
pt received from OR in recovery bay 5. pt awake and alert, breathing unlabored on 3l nc. v/s stable. report received from Lynne RIVERA.
--- NOTE | 2024-10-01 16:15 | SUR.PHASEI ---
pt awake and alert, breathing unlabored on room air. v/s stable. report called to Kyra RIVERA. pt will be transferred back to room at this time.
[2024-10-01] MEDS: ATORVASTATIN CALCIUM 20 MG TABLET 80 MG PO (20:03)
[2024-10-02] VITALS (7 sets, daily range): BP systolic 96–136; BP diastolic 42–60; PULSE 65–78; RESP 17–19; TEMP 35.9–36.8; O2SAT 95–96
[2024-10-02 05:50] LABS: Basophils % (Auto) 1 % (0-2.5); Eosinophils # (Auto) 0.3 Thou/mm3 (0.0-0.5); Eosinophils % (Auto) 5 % (0-10); Hematocrit 25.7 % (36.0-46.0); Immature Granulocytes % (Auto) 1 % (0-0); Immature Granulocytes Auto 0.03 Thou/mm3 (0.00-0.00); Lymphocytes # (Auto) 1.4 Thou/mm3 (1.0-4.8); Lymphocytes % (Auto) 21 % (10-50); Mean Corpuscular HGB Conc 33.1 g/dl (31.0-37.0); Mean Corpuscular Hemoglobin 30.8 pg (25.0-35.0); Mean Corpuscular Volume 93 fL (80-100); Monocytes # (Auto) 0.5 Thou/mm3 (0.0-0.8); Monocytes % (Auto) 8 % (0-12); Neutrophils # (Auto) 4.2 Thou/mm3 (1.8-7.7); Neutrophils % (Auto) 65 % (37-80); Nucleated Red Blood Cell % 0 /100 WBC (0); Platelet Count 140 Thou/mm3 (140-440); RDW Standard Deviation 54.3 fL (36.4-46.3); Red Blood Count 2.76 Miln/mm3 (4.00-5.20); White Blood Count 6.4 Thou/mm3 (3.6-11.0)
[2024-10-02 05:53] LABS: Hemoglobin 8.5 g/dL (12.0-16.0)
[2024-10-02 06:21] LABS: Alanine Aminotransferase < 7 U/L (10-49); Albumin, Serum 3.3 gm/dL (3.4-4.8); Albumin/Globulin Ratio 1.5 (1.2-2.2); Alkaline Phosphatase 51 U/L (46-116); Anion Gap 5 (7-16); Aspartate Amino Transferase 22 U/L (0-34); BUN/Creatinine Ratio 24 Ratio (12-20); Bilirubin,Total 0.4 mg/dL (0.3-1.2); Blood Urea Nitrogen 44 mg/dL (9-23); Calcium 8.6 mg/dL (8.3-10.6); Calcium (Corrected) 9.2 mg/dL (8.5-10.1); Chloride 113 mMol/L (98-107); Creatinine (Component) 1.8 mg/dL (0.6-1.3); Estimated Creatinine Clearance 23.3 mL/min (>60); Globulin 2.2 gm/dL (2.3-3.5); Glucose 84 mg/dL (74-106); Osmolality,Calculated 291 (275-295); Potassium 4.7 mMol/L (3.4-5.1); Sodium 141 mMol/L (136-145); Total Protein 5.5 gm/dL (5.7-8.2); eGFR 29 See Note
[2024-10-02] MEDS: TRIMETHOPRIM/SULFA 160/800 DS TABLET 1 TAB PO (09:35)
[2024-10-02] MEDS: PANTOPRAZOLE INJ 40 MG VIAL IV ×2 (09:35→20:27)
[2024-10-02] MEDS: MULTIVITAMINS TABLET 1 TAB PO (09:35)
--- NOTE | 2024-10-02 10:32 | PC.SS ---
rounding note: EGD completed. Pending rec's from GI. Physician states poss dc
--- NOTE | 2024-10-02 11:13 | PD.RESPRO ---
Documentation for date of: 10/02/24 Subjective Subjective Interval history: Patient seen at bedside this morning. No overnight events. Patient had EGD done which showed esophagitis, gastritis with hemorrhage, and blood-tinged bilious secretion in the descending duodenum. Patient's urine also grew Proteus Mirabillis which was sensitive to Augmentin, therefore ordered. GI will do colonoscopy, started GoLytely and clear liquid diet. Protonix BID. Exam Vital Signs Temp Pulse Resp BP Pulse Ox O2 Del Method O2 Flow Rate 98.2 F 78 18 117/51 L 96 Room Air 1 10/02/24 08:00 10/02/24 08:00 10/02/24 08:00 10/02/24 08:00 10/02/24 08:00 10/02/24 08:00 10/01/24 16:00 Narrative Exam General: A/O x3, no acute distress, well-nourished, well-developed Eyes: PERRL, EOMI. Anicteric, vision grossly intact. Ears: No ear pain, no ear discharge, Hearing grossly intact. Nose: No nasal discharge. Mouth/Throat: Dry mucous membranes, no redness, no lesions. Neck: Neck supple, non-tender, no cervical lymphadenopathy. Lungs: Clear YASMINE to auscultation and percussion, No accessory muscle use. Cardio: Normal S1/S2, regular rhythm, systolic ejection murmur, no JVD Abdomen: Soft, non-tender, no palpable masses, peristalsis present, no guarding or rebound. Extremities: Symmetrical, no significant deformities, trace peripheral edema , non-tender, peripheral pulses presents. Skin: No rashes, no lesions, warm to touch. Neuro: No focal neurological deficits. motor and sensory intact Objective Labs 10/03/24 06:07 10/03/24 06:00 Labs: Laboratory Results - last 24 hr 10/02/24 05:23 WBC 6.4 RBC 2.76 L Hgb 8.5 L Hct 25.7 L MCV 93 MCH 30.8 MCHC 33.1 RDW Std Deviation 54.3 H Plt Count 140 Neut % (Auto) 65 Lymph % (Auto) 21 [place] % (Auto) 8 Eos % (Auto) 5 Baso % (Auto) 1 Neut # (Auto) 4.2 Lymph # (Auto) 1.4 [place] # (Auto) 0.5 Eos # (Auto) 0.3 Baso # (Auto) 0.0 Immature Gran # (Auto) 0.03 H Absolute Nucleated RBC 0.00 Immature Gran % 1 H Nucleated RBC % 0 Sodium 141 Potassium 4.7 Chloride 113 H Carbon Dioxide 23.0 Anion Gap 5 L BUN 44 H Creatinine 1.8 H Estim Creat Clear Calc 23.3 L eGFR 29 L BUN/Creatinine Ratio 24 H Glucose 84 Calculated Osmolality 291 Calcium 8.6 Corrected Calcium 9.2 Total Bilirubin 0.4 AST 22 ALT < 7 L Alkaline Phosphatase 51 Total Protein 5.5 L Albumin 3.3 L Globulin 2.2 L Albumin/Globulin Ratio 1.5 Quality Measures Quality Measures none Advance care planning discussed with:: patient Assessment & Plan Assessment Current Active Medications: Generic Name Dose Route Start Last Admin Trade Name Freq PRN Reason Stop Dose Admin Acetaminophen 650 mg 09/29/24 07:55 Acetaminophen 325 Mg Tablet PO 10/29/24 01:55 Q6H PRN Fever >100.3 Amoxicillin/Clavulanate Potassium 500 mg 10/02/24 10:30 Amoxicillin/Pot Clav 500 Mg Tablet PO 10/09/24 10:29 BID FELTON Atorvastatin Calcium 80 mg 09/29/24 21:00 10/01/24 20:03 Atorvastatin Calcium 20 Mg Tablet PO 10/29/24 20:59 80 mg HS FELTON Administration Multivitamins 1 tab 09/30/24 09:00 10/02/24 09:35 Multivitamins Tablet PO 10/30/24 08:59 1 tab QDAY FELTON Administration Pantoprazole Sodium 40 mg 10/02/24 21:00 Pantoprazole Inj 40 Mg Vial IV 11/01/24 20:59 BID FELTON Plan 74-year-old female with past medical history of aortic stenosis, CAD s/p stents, hyperlipidemia, and asthma was admitted to the hospital on 09/29/2024 due to acute anemia multifactorial likely secondary to CKD, nutritional, and possible blood loss. #Dizziness #Ground-level fall #Acute anemia likely multifactorial #Under nourished #Hemorrhagic gastritis ? Patient came in with complaints of dizziness for the past 3 months and fall 2 weeks ago. ? Patient states that she has been having financial difficulties which had made her unable to eat a proper diet at home. ? Patient states that she normally eats sandwiches once times a day along with coughing. ? Initial hemoglobin was 5.3, iron 30, iron saturation 8%, ferritin 16, B12 156, and folate 11.39 ?Patient received 3 PRBCs -Hgb 8.5 today - FOBT was positive -Colonoscopy showed gastritis with hemorrhage and blood-tinged bilious in the duodenum. Will likely need colonoscopy prior to DC. Plan: ? Will continue vitamin B12 injections and multivitamins ?Will transfuse hemoglobin less than 8, keep above 8 given cardiac history -Pending colonoscopy ?Gi consulted, appreciate reccomendations. ?Refer to registered dietitian ? Will continue to monitor #Proteus mirabilis UTI ?urine culture grew Proteus Mirabella's sensitive to Augmentin plan: ?Started Augmentin ? Continue monitor #Acute on chronic CKD, stage III ? Baseline creatinine 2.4 on 04/2024 ?On admission BUN 81 creatinine 3.1 ?Creatinine 1.8 today Plan: ? Avoid nephrotoxic agents ? Renally dose medications ? Will consider nephrology consultation if kidney function does not improve #Aortic stenosis #CAD status post stents ? Patient was scheduled for heart cath by her [employer] on 10/03/2024 ?Echo the following findings: Severe calcific Aortic valve mean gradient 47mmHg, vmax 4.4m/s. Peak Gradient 78 mm hG Normal LV size and function. Mild LVH. Estimated EF 60-65% Normal RV size and function Mild mitral regurgitation Trace tricuspid regurgitation -No heart cath during this admission as per CArdio Plan: ? Will hold off Plavix for now given possible GI bleed ? Consulted cardiology, appreciate commendations #Hx of hypertension #Hx of hyperlipidemia ?Start patient on atorvastatin 80 mg at bedtime ? Holding antihypertensive medication for now patient's blood pressure has been soft since admission. Disposition: Patient seen in [facility] pending colonoscopy, Abx for proteus in urine culture. Diet: Renal GI prophylaxis: not indicated DVT prophylaxis: SCDs Code:DNR Case disclosed with Attending Dr. Celestin and my senior Dr. Kelly PGY2. Weston Bermudez PGY1 Senior Resident Attestation: The patient was started on GoLytely as recommended by Dr. Atwood. The patient will undergo colonoscopy likely tonight. I discussed with and supervised the international representative physician involved in the care of this patient. I personally saw and examined the patient and discussed the assessment and plan with the entire medicine team, including my attending. I agree with the assessment and plan as documented above. Abhishek Kelly MD PGY2 Internal Medicine Attending Provider Attestation/Addendum I reviewed labs, imaging, EKG, home medications and prior available records. Face to face evaluation was performed by me. I have personally examined the patient and discussed assessment and plan with the IM team. I reviewed the resident note and agree with the plan with exceptions as below. Acute anemia ARIES on CKD stage III Upper GI bleed Proteus acute UTI CAD s/p stents H&H is stable. Monitor H&H Status post EGD: Showed esophagitis and gastritis with hemorrhage. Plan for colonoscopy. Continue PPI twice daily P.o. Augmentin for the acute UTI Creatinine improved. Monitor kidney function. Avoid nephrotoxins. Cardiac catheterization as outpatient
[2024-10-02] MEDS: NA SU/NAHCO3/KC/PEG (Golytely) 4,000 ML BTL 4000 ML PO (11:16)
[2024-10-02] MEDS: AMOXICILLIN/POT CLAV 500 MG TABLET PO ×2 (11:16→20:27)
--- NOTE | 2024-10-02 16:08 | ESPR_ITS ---
<Statement entered by Kirsten Goins MD - 10/04/24 13:07> The patient is clinically doing better no further episodes or shortness of breath chest pain hemoglobin is stable we will schedule for right and left heart cardiac laceration tomorrow for her severe aortic stenosis symptomatic. Agree with the treatment plan recommendation as documented by Dr. Piyush Obando, PGY 2 Documentation for date of: 10/02/24 Subjective Subjective Interval history: Patient seen and assessed at bedside. Patient states to be feeling much better. Patient was able to walk without feeling dizzy today. Patient pending colonoscopy, but she has not drank much over her GoLytely states she cannot tolerate the taste. EGD showed multiple signs of active bleeding and gastritis. Exam Vital Signs Temp Pulse Resp BP Pulse Ox O2 Del Method O2 Flow Rate 96.9 F 66 19 135/60 H 95 Room Air 1 10/02/24 12:00 10/02/24 12:00 10/02/24 12:00 10/02/24 12:00 10/02/24 12:00 10/02/24 12:00 10/01/24 16:00 Narrative Exam General: Pleasant elderly female, AO x 3. In no acute distress. Heart: Regular rate and rhythm, ejection systolic murmur on auscultation at both cardiac apex and right second intercostal chest area. Lungs: Clear to auscultation with no wheezing or crackles. Abdomen: Soft, nondistended, nontender, positive bowel sounds. ?No guarding or rebound tenderness. Extremities: Trace left lower extremity edema, 1+ right lower extremity edema. Skin: No rash or ecchymoses. Objective Labs 10/02/24 05:23 10/02/24 05:23 Labs: Laboratory Results - last 24 hr 10/02/24 05:23 WBC 6.4 RBC 2.76 L Hgb 8.5 L Hct 25.7 L MCV 93 MCH 30.8 MCHC 33.1 RDW Std Deviation 54.3 H Plt Count 140 Neut % (Auto) 65 Lymph % (Auto) 21 [place] % (Auto) 8 Eos % (Auto) 5 Baso % (Auto) 1 Neut # (Auto) 4.2 Lymph # (Auto) 1.4 [place] # (Auto) 0.5 Eos # (Auto) 0.3 Baso # (Auto) 0.0 Immature Gran # (Auto) 0.03 H Absolute Nucleated RBC 0.00 Immature Gran % 1 H Nucleated RBC % 0 Sodium 141 Potassium 4.7 Chloride 113 H Carbon Dioxide 23.0 Anion Gap 5 L BUN 44 H Creatinine 1.8 H Estim Creat Clear Calc 23.3 L eGFR 29 L BUN/Creatinine Ratio 24 H Glucose 84 Calculated Osmolality 291 Calcium 8.6 Corrected Calcium 9.2 Total Bilirubin 0.4 AST 22 ALT < 7 L Alkaline Phosphatase 51 Total Protein 5.5 L Albumin 3.3 L Globulin 2.2 L Albumin/Globulin Ratio 1.5 Quality Measures Quality Measures none Advance care planning discussed with:: patient Assessment & Plan Assessment Current Active Medications: Generic Name Dose Route Start Last Admin Trade Name Freq PRN Reason Stop Dose Admin Acetaminophen 650 mg 09/29/24 07:55 Acetaminophen 325 Mg Tablet PO 10/29/24 01:55 Q6H PRN Fever >100.3 Amoxicillin/Clavulanate Potassium 500 mg 10/02/24 10:30 10/02/24 11:16 Amoxicillin/Pot Clav 500 Mg Tablet PO 10/09/24 10:29 500 mg BID FELTON Administration Atorvastatin Calcium 80 mg 09/29/24 21:00 10/01/24 20:03 Atorvastatin Calcium 20 Mg Tablet PO 10/29/24 20:59 80 mg HS FELTON Administration Multivitamins 1 tab 09/30/24 09:00 10/02/24 09:35 Multivitamins Tablet PO 10/30/24 08:59 1 tab QDAY FELTON Administration Pantoprazole Sodium 40 mg 10/02/24 21:00 Pantoprazole Inj 40 Mg Vial IV 11/01/24 20:59 BID FELTON Plan Patient is a 74-year-old female admitted for syncopal/presyncopal episodes. Cardiology consulted for syncopal workup. #Syncope/presyncope #Severe aortic stenosis #History of CAD status post PCI Patient reports syncope/presyncope for the past few months. Syncopal episodes likely related to anemia and aortic stenosis. Troponin within normal limits Patient has cardiac echo showing severe aortic stenosis Patient would likely benefit from TAVR. Patient will be getting heart cath tomorrow. Patient made NPO after midnight, Meds ok. # Acute anemia # Acute on chronic kidney disease, stage IV #History of hypertension # History of hyperlipidemia Managed per primary team Case discussed with hearing impaired itinerant teacher Dr. Buster Obando MD PGY3
--- NOTE | 2024-10-02 19:43 | PD.IMPROG ---
Documentation for date of: 10/02/24 Subjective Subjective Interval history: Patient evaluated Hemoglobin hematocrit 8.5 and 25.7 WBC count 6.4 Upper endoscopy showed blood in the proximal small bowel suggestive of a small bowel bleed Gastritis I did not schedule the patient for a colonoscopy because she was supposed to have an coronary angiogram Which has been canceled GoLytely prep in progress for further evaluation via fiberoptic colonoscopy Exam Vital Signs Temp Pulse Resp BP Pulse Ox O2 Del Method O2 Flow Rate 96.7 F L 70 19 136/58 H 95 Room Air 1 10/02/24 16:00 10/02/24 16:00 10/02/24 16:00 10/02/24 16:00 10/02/24 16:00 10/02/24 16:00 10/01/24 16:00 Constitutional Comments: Alert oriented Routine Respiratory Exam Comments: Normal to auscultation Routine Abdominal Exam Comments: Soft nontender Objective Labs 10/02/24 05:23 10/02/24 05:23 Labs: Laboratory Results - last 24 hr 10/02/24 05:23 WBC 6.4 RBC 2.76 L Hgb 8.5 L Hct 25.7 L MCV 93 MCH 30.8 MCHC 33.1 RDW Std Deviation 54.3 H Plt Count 140 Neut % (Auto) 65 Lymph % (Auto) 21 [place] % (Auto) 8 Eos % (Auto) 5 Baso % (Auto) 1 Neut # (Auto) 4.2 Lymph # (Auto) 1.4 [place] # (Auto) 0.5 Eos # (Auto) 0.3 Baso # (Auto) 0.0 Immature Gran # (Auto) 0.03 H Absolute Nucleated RBC 0.00 Immature Gran % 1 H Nucleated RBC % 0 Sodium 141 Potassium 4.7 Chloride 113 H Carbon Dioxide 23.0 Anion Gap 5 L BUN 44 H Creatinine 1.8 H Estim Creat Clear Calc 23.3 L eGFR 29 L BUN/Creatinine Ratio 24 H Glucose 84 Calculated Osmolality 291 Calcium 8.6 Corrected Calcium 9.2 Total Bilirubin 0.4 AST 22 ALT < 7 L Alkaline Phosphatase 51 Total Protein 5.5 L Albumin 3.3 L Globulin 2.2 L Albumin/Globulin Ratio 1.5 Impressions Impression: # Hemoccult positive stool # Posthemorrhagic anemia # Bloodstained bilious secretions in the descending duodenum suggestive of a small bowel bleed Plan GoLytely prep Colonoscopy a.m. If colonoscopy negative Outpatient capsule endoscopy Assessment & Plan A&P Narrative # Acute on chronic posthemorrhagic anemia with Hemoccult positive stool Plan Agree with the blood transfusion Consent obtained for fiberoptic upper endoscopy after blood transfusion scheduled for tomorrow morning to rule out any peptic ulcer disease prior to cardiac catheterization as patient may need anticoagulation Will follow the patient Other medical problems include # Coronary artery disease status post PCI # Aortic stenosis # Essential hypertension # Hyperlipidemia # Syncope most likely due to low blood volume may also be related to aortic stenosis Thank you very much for the opportunity to participate in the care of this patient Time Spent With Patient Time: Total time spent is greater than 50% in coordination of care (as documented) at patient's floor/unit and/or counseling patient:
[2024-10-02] MEDS: ATORVASTATIN CALCIUM 20 MG TABLET 80 MG PO (20:27)
--- NOTE | 2024-10-02 22:43 | PC.NURSE ---
Patient refused the caprice Atwood aware, pt is to go to cardiac cath 10/03/[address] Goins. NPO after midnight.
[2024-10-03] VITALS (16 sets, daily range): BP systolic 98–143; BP diastolic 45–67; PULSE 63–76; RESP 14–95; TEMP 36.1–37.1; O2SAT 94–98; BMI 32.9
[2024-10-03 06:40] LABS: Basophils # (Auto) 0.1 Thou/mm3 (0.0-0.2); Basophils % (Auto) 1 % (0-2.5); Eosinophils # (Auto) 0.3 Thou/mm3 (0.0-0.5); Eosinophils % (Auto) 4 % (0-10); Hematocrit 24.6 % (36.0-46.0); Immature Granulocytes % (Auto) 1 % (0-0); Immature Granulocytes Auto 0.04 Thou/mm3 (0.00-0.00); Lymphocytes # (Auto) 1.3 Thou/mm3 (1.0-4.8); Lymphocytes % (Auto) 21 % (10-50); Mean Corpuscular HGB Conc 32.5 g/dl (31.0-37.0); Mean Corpuscular Hemoglobin 30.7 pg (25.0-35.0); Mean Corpuscular Volume 94 fL (80-100); Monocytes # (Auto) 0.6 Thou/mm3 (0.0-0.8); Monocytes % (Auto) 9 % (0-12); Neutrophils # (Auto) 3.9 Thou/mm3 (1.8-7.7); Neutrophils % (Auto) 64 % (37-80); Nucleated Red Blood Cell % 0 /100 WBC (0); Platelet Count 147 Thou/mm3 (140-440); RDW Standard Deviation 53.3 fL (36.4-46.3); Red Blood Count 2.61 Miln/mm3 (4.00-5.20)
[2024-10-03 07:14] LABS: Alanine Aminotransferase < 7 U/L (10-49); Albumin, Serum 3.4 gm/dL (3.4-4.8); Albumin/Globulin Ratio 1.7 (1.2-2.2); Alkaline Phosphatase 49 U/L (46-116); Anion Gap 6 (7-16); Aspartate Amino Transferase 13 U/L (0-34); BUN/Creatinine Ratio 22 Ratio (12-20); Bilirubin,Total 0.5 mg/dL (0.3-1.2); Blood Urea Nitrogen 37 mg/dL (9-23); Calcium 8.8 mg/dL (8.3-10.6); Calcium (Corrected) 9.3 mg/dL (8.5-10.1); Carbon Dioxide 24.3 mMol/L (20.0-31.0); Chloride 110 mMol/L (98-107); Creatinine (Component) 1.7 mg/dL (0.6-1.3); Estimated Creatinine Clearance 24.7 mL/min (>60); Glucose 85 mg/dL (74-106); Osmolality,Calculated 287 (275-295); Potassium 4.6 mMol/L (3.4-5.1); Sodium 140 mMol/L (136-145); Total Protein 5.4 gm/dL (5.7-8.2); eGFR 31 See Note
[2024-10-03 08:26] LABS: INR 1.1 (0.9-1.3); Partial Thromboplastin Time 24.4 Seconds (22.0-36.0); Prothrombin Time 11.5 Seconds (9.0-12.2)
[2024-10-03] MEDS: SODIUM CHLORIDE 0.9% 500 ML 500 ML 100 ML IV (10:00)
--- NOTE | 2024-10-03 10:54 | PC.NURSE ---
SURGICAL SITE TO RIGHT GROIN AREA REMAINS ASYMPTOMATIC, NO ACTIVE BLEEDING, NO HEMATOMA NOTED ON RIGHT GROIN AREA. RIGHT FEMORAL PULSE NOTED WITH NO CHANGES IN STRENGHT AND QUALITY UPON PALPATION (normal), RIGHT DORSALIS PEDIS PULSE NOTED WITH NO CHANGES STRENGHT AND QUALITY (weak with Doppler). DISTAL CAPPILARRY REFILL <3 SECONDS (Baseline, Right Toes). NO NOTED CHANGES IN COLOR OR TEMPERATURE ON RIGHT LOWER EXTREMITY. PATIENT DENIES GENERAL AND LOCALIZED PAIN. NO TINGLING OR NUMBNESS FELT TO RIGHT LOWER EXTREMITY. NO LOSS IN SENSATION TO RIGHT LOWER EXTEREMITY SURGICAL SITE COVERED WITH GAUZE AND TAGADERM DRESSING, WHICH REMAINS IN PLACE, DRY, AND INTACT.
--- NOTE | 2024-10-03 11:21 | PD.RESPRO ---
Documentation for date of: 10/03/24 Subjective Subjective Interval history: Patient was seen at bedside this morning. No overnight events. Patient undergoing heart cath today by cardiology and is pending colonoscopy by GI specialist. Will restart patient on GoLytely for bowel prep after heart cath. No other complaints at this time. Exam Vital Signs Temp Pulse Resp BP Pulse Ox O2 Del Method O2 Flow Rate 97.8 F 67 14 99/67 96 Room Air 1 10/03/24 10:00 10/03/24 11:00 10/03/24 11:00 10/03/24 11:00 10/03/24 11:00 10/03/24 11:00 10/01/24 16:00 Narrative Exam General: A/O x3, no acute distress, well-nourished, well-developed Eyes: PERRL, EOMI. Anicteric, vision grossly intact. Ears: No ear pain, no ear discharge, Hearing grossly intact. Nose: No nasal discharge. Mouth/Throat: Dry mucous membranes, no redness, no lesions. Neck: Neck supple, non-tender, no cervical lymphadenopathy. Lungs: Clear YASMINE to auscultation and percussion, No accessory muscle use. Cardio: Normal S1/S2, regular rhythm, systolic ejection murmur, no JVD Abdomen: Soft, non-tender, no palpable masses, peristalsis present, no guarding or rebound. Extremities: Symmetrical, no significant deformities, no peripheral edema , non-tender, peripheral pulses presents. Skin: No rashes, no lesions, warm to touch. Neuro: No focal neurological deficits. motor and sensory intact Objective Labs 10/03/24 06:07 10/03/24 06:00 Labs: Laboratory Results - last 24 hr 10/03/24 10/03/24 06:00 06:07 WBC 6.0 RBC 2.61 L Hgb 8.0 L Hct 24.6 L MCV 94 MCH 30.7 MCHC 32.5 RDW Std Deviation 53.3 H Plt Count 147 Neut % (Auto) 64 Lymph % (Auto) 21 [place] % (Auto) 9 Eos % (Auto) 4 Baso % (Auto) 1 Neut # (Auto) 3.9 Lymph # (Auto) 1.3 Rich # (Auto) 0.6 Eos # (Auto) 0.3 Baso # (Auto) 0.1 Immature Gran # (Auto) 0.04 H Absolute Nucleated RBC 0.00 Immature Gran % 1 H Nucleated RBC % 0 PT 11.5 INR 1.1 APTT 24.4 Sodium 140 Potassium 4.6 Chloride 110 H Carbon Dioxide 24.3 Anion Gap 6 L BUN 37 H Creatinine 1.7 H Estim Creat Clear Calc 24.7 L eGFR 31 L BUN/Creatinine Ratio 22 H Glucose 85 Calculated Osmolality 287 Calcium 8.8 Corrected Calcium 9.3 Total Bilirubin 0.5 AST 13 ALT < 7 L Alkaline Phosphatase 49 Total Protein 5.4 L Albumin 3.4 Globulin 2.0 L Albumin/Globulin Ratio 1.7 Quality Measures Quality Measures none Advance care planning discussed with:: patient Assessment & Plan Assessment Current Active Medications: Generic Name Dose Route Start Last Admin Trade Name Freq PRN Reason Stop Dose Admin Acetaminophen 650 mg 09/29/24 07:55 Acetaminophen 325 Mg Tablet PO 10/29/24 01:55 Q6H PRN Fever >100.3 Amoxicillin/Clavulanate Potassium 500 mg 10/02/24 10:30 10/03/24 08:03 Amoxicillin/Pot Clav 500 Mg Tablet PO 10/09/24 10:29 Not Given BID FELTON Atorvastatin Calcium 80 mg 09/29/24 21:00 10/02/24 20:27 Atorvastatin Calcium 20 Mg Tablet PO 10/29/24 20:59 80 mg HS FELTON Administration Sodium Chloride 500 mls @ 100 mls/hr 10/03/24 10:27 10/03/24 11:01 Ns IV 10/03/24 20:26 999 mls/hr .Q5H FELTON Infusion Multivitamins 1 tab 09/30/24 09:00 10/03/24 08:03 Multivitamins Tablet PO 10/30/24 08:59 Not Given QDAY FELTON Pantoprazole Sodium 40 mg 10/02/24 21:00 10/03/24 08:03 Pantoprazole Inj 40 Mg Vial IV 11/01/24 20:59 Not Given BID FELTON Plan 74-year-old female with past medical history of aortic stenosis, CAD s/p stents, hyperlipidemia, and asthma was admitted to the hospital on 09/29/2024 due to acute anemia multifactorial likely secondary to CKD, nutritional, and possible blood loss. #Dizziness #Ground-level fall #Acute anemia likely multifactorial #Under nourished #Hemorrhagic gastritis ? Patient came in with complaints of dizziness for the past 3 months and fall 2 weeks ago. ? Patient states that she has been having financial difficulties which had made her unable to eat a proper diet at home. ? Patient states that she normally eats sandwiches once times a day along with coughing. ? Initial hemoglobin was 5.3, iron 30, iron saturation 8%, ferritin 16, B12 156, and folate 11.39 ?Patient received 3 PRBCs -Hgb 8 today - FOBT was positive -Endoscopy showed gastritis with hemorrhage and blood-tinged bilious in the duodenum. Will likely need colonoscopy prior to DC. Plan: ? Will continue vitamin B12 injections and multivitamins ?Will transfuse hemoglobin less than 8, keep above 8 given cardiac history -Pending colonoscopy ?Gi consulted, appreciate reccomendations. ?Refer to registered dietitian ? Will continue to monitor #Proteus mirabilis UTI ?urine culture grew Proteus Mirabella's sensitive to Augmentin plan: ?Started Augmentin ? Continue monitor #Acute on chronic CKD, stage III ? Baseline creatinine 2.4 on 04/2024 ?On admission BUN 81 creatinine 3.1 ?Creatinine 1.7 today Plan: ? Avoid nephrotoxic agents ? Renally dose medications ? Will consider nephrology consultation if kidney function does not improve #Aortic stenosis #CAD status post stents ? Patient was scheduled for heart cath by her jewelry making instructor on 10/03/2024 ?Echo the following findings: Severe calcific Aortic valve mean gradient 47mmHg, vmax 4.4m/s. Peak Gradient 78 mm hG Normal LV size and function. Mild LVH. Estimated EF 60-65% Normal RV size and function Mild mitral regurgitation Trace tricuspid regurgitation -Heart cath today Plan: ? Will hold off Plavix for now given possible GI bleed ? Consulted cardiology, appreciate commendations #Hx of hypertension #Hx of hyperlipidemia ?Start patient on atorvastatin 80 mg at bedtime ? Holding antihypertensive medication for now patient's blood pressure has been soft since admission. Disposition: Patient seen in [facility] pending colonoscopy, Abx for proteus in urine culture. Diet: Renal GI prophylaxis: not indicated DVT prophylaxis: SCDs Code:DNR Case disclosed with Attending Dr. Celestin and my senior Dr. Kelly PGY2. Weston Bermudez PGY1 Senior Resident Attestation: The patient was later discharged home. Please refer to discharge summary for further details. I discussed with and supervised the underwriting internship physician involved in the care of this patient. I personally saw and examined the patient and discussed the assessment and plan with the entire medicine team, including my attending. I agree with the assessment and plan as documented above. Abhishek Kelly MD PGY2 Internal Medicine Attending Provider Attestation/Addendum I reviewed labs, imaging, EKG, home medications and prior available records. Face to face evaluation was performed by me. I have personally examined the patient and discussed assessment and plan with the IM team. I reviewed the resident note and agree with the plan with exceptions as below. Acute anemia ARIES on CKD stage III Upper GI bleed Proteus acute UTI CAD s/p stents H&H is stable. Monitor H&H Status post EGD: Showed esophagitis and gastritis with hemorrhage. Refused colonoscopy. Discussed with GI: Okay to continue diet. Outpatient colonoscopy which will need referral from PCP. Continue PPI twice daily P.o. Augmentin for the acute UTI Creatinine improved. Monitor kidney function. Avoid nephrotoxins. Cardiac catheterization was done and showed severe . She will need TAVR and CTA. Okay to DC from cardiology standpoint. Outpatient follow-up with cardiology. Time spent is 40 minutes. More than 50% of the time was spent on patient education and coordination of care.
[2024-10-03 14:09] LABS: O2 Saturation (Cath Lab) 70 % (91-98); Puncture Site Pulmonary Artery
--- NOTE | 2024-10-03 14:45 | PC.SS ---
Rounding note: patient received cardiac cath. Patient is planned for colonoscopy today. Possible d/c tomorrow.
--- NOTE | 2024-10-03 14:49 | ESOP_ITS ---
RE: VERENICE GIVENS : 1950 DATE OF OPERATION: 10/03/2024 PROCEDURE PERFORMED: 1. Diagnostic right and left heart cardiac catheterization, selective coronary angiogram, left ventricular angiogram, CPT 60804. 2. Selective catheter placement of the abdominal aorta and pelvic angiogram. 3. Aortic root angiogram. 4. Conscious sedation 30 minute duration. 5. Ultrasound guided access of right femoral artery and right femoral vein. DIAGNOSES: Severe aortic stenosis, congestive heart failure, shortness of breath, chest pain. HISTORY AND INDICATIONS: The patient is a 74-year-old female with a past medical history of aortic stenosis and multivessel coronary artery disease, multivessel stent placement, peripheral artery disease, bilateral iliac stent placement, admitted to the hospital for severe chest pain, shortness of breath, found to have severe calcific aortic stenosis, aortic velocity of 4.4 m/sec and did have an abnormal stress test. She was initially scheduled for right and left heart cardiac catheterization for a possible transcatheter aortic valve replacement procedure and right and left heart cardiac catheterization, coronary angiogram was recommended to assess if she is a candidate for aortic valve replacement and assess underlying CAD. Also, iliac stent placement performed, recommended iliac and pelvic angiogram. DESCRIPTION OF PROCEDURE: The patient was brought to cardiac laboratory. She was given conscious sedation, 30 minutes duration, using 2 mg of Versed, 50 mcg of fentanyl. Right femoral artery cannulated by micropuncture technique. Ultrasound guidance was used, a 5-Greek sheath was introduced. Right femoral vein was cannulated by ultrasound guidance and right femoral vein was cannulated. A 7-Greek sheath was introduced. Right heart catheterization was performed with Swans-Aryan catheter. Cardiac output was obtained. Right ventricle and PA pressures were measured. Left heart catheterization performed by FR4 diagnostic catheter. Left ventricular angiogram performed. Pullback pressures were measured. Selective right and left coronary angiogram performed by Jerkins catheter, 5-Greek FR4 for diagnostic catheter was introduced. A 5-Greek Pigtail catheter was advanced into the aortic root and aortic root angiogram was performed and ascending aortic angiogram performed subsequently. Catheter was placed above the renal arteries and abdominal and pelvic angiogram was performed via digital subtraction method. The patient tolerated the operative procedure very well. No complications. Sheaths were removed. Manual compression applied. Cardiac catheterization showed following findings. Hemodynamics: The left ventricular pressure is found to be 173/0, EDP 14. Aortic pressure is 129/35. There is a mean gradient of 35 mmHg across the aortic valve and a peak gradient of 50 mmHg with cardiac output of 4.4 liters per minute. Aortic valve area 0.7 square centimeters. There is no severe critical aortic stenosis. The right heart pressures as follows. The right atrial pressure was found to be 4 mmHg. RV pressure 23/4 mmHg. Pulmonary artery pressure is 26/10 mmHg. PA pressure 17 mmHg. Right ventricular pressure is 27/3 mmHg. Pulmonary artery wedge pressure is 8 mmHg. Coronary angiogram showed following findings. The right coronary artery is large and dominant, has multiple stents proximal and mid segment, widely patent. There is diffuse disease. Left coronary artery system; left main coronary artery showed mild calcification, widely patent. No significant stenosis. Circumflex artery showed no significant stenosis. 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 Aortic root angiogram showed no significant aortic regurgitation and normal-sized aorta and heavy calcification of the aorta. Abdominal aorta and pelvic angiogram showed abdominal aorta appears no significant stenosis, some calcification. No aneurysm. There are two iliac stents. Both common iliac artery stents are widely patent. The right one appears to be slightly narrowed in the distal segment. Left ventricular angiogram showed evidence of normal left ventricular wall motion, ejection fraction of 60%. SUMMARY OF FINDINGS: 1. Severe calcific aortic stenosis, aortic valve area is 0.7 square cm. 2. Excellent LV function. 3. Widely patent stents involving previous stents in the right coronary artery and LAD. 4. Bilateral iliac stents present. They are widely patent, but they are small in size. RECOMMENDATIONS: The patient will be referred for TAVR procedure. Probably needs a CTA for assessment of the aorta and iliac vessels before proceeding with TAVR procedure. Prognosis is fair since the coronary artery stents are patent. The patient can be discharged home later today and will refer for TAVR program. DT: 13:20:00 TT: 14:47:00 Ref: [id number] - TID: [id number]
--- NOTE | 2024-10-03 15:26 | PC.NURSE ---
Notified Dr. Servin patient needs to be put on a diet.
--- NOTE | 2024-10-03 17:12 | ESDS_ITS ---
Planned Discharge Date 10/03/24 DS: Providers Provider Date of admission: 09/29/24 01:56 Primary care physician: Ant Valentin MD Admitting Provider: Kris Damian MD Attending Provider on Admission: Luis Celestin MD Consults: 09/29/24 13:42 Consult to Cardiology Routine Comment: Consulting Provider: Kirsten Goins 09/29/24 18:17 Referral Registered Dietitian Routine Comment: 09/30/24 10:25 Referral Physical Therapy Routine Comment: Physician Instructions: 09/30/24 13:15 Consult to Gastroenterology Urgent Comment: Acute blood loss anemia Consulting Provider: Jada Atwood Attending Provider on DC: Luis Celestin MD Discharging Provider: Luis Celestin MD DS: Diagnosis Problem List Completed Was Problem List Reviewed/Reconciled?: Yes Hospital Course Hospital Course Hospital course: 74-year-old female with past medical history of aortic stenosis, CAD s/p stents, hyperlipidemia, and asthma was admitted to the hospital on 09/29/2024 due to acute anemia multifactorial likely secondary to CKD, nutritional, and GI bleed. Initially patient was mildly hypotensive and afebrile. In the ED patient came in with complaints of dizziness for the past 3 months. Initial labs were relevant for low hemoglobin (5.3), ARIES on CKD (BUN 81 and creatinine 3.1), and UA was positive for bacteriuria. Initial imaging included chest x-ray which was unremarkable, EKG which showed sinus rhythm with first-degree AV block, and echo that showed severe calcific aortic valve and an EF of 60 to 65%. Patient was treated with multivitamins, vitamin B12 injections, and received 3 PRBCs during her hospital stay due to her low hemoglobin. She was also treated with IV fluids as well for ARIES on CKD. Cardiology was consulted given the history of aortic stenosis and they performed a heart cath which showed severe calcific aortic stenosis and patent stents. GI was also consulted given the likelihood of GI bleed after FOBT was positive. GI did an EGD and found patient to have gastritis with hemorrhage as well as esophagitis and blood-tinged bilious secretions in the descending duodenum and second third portion. GI had planned for colonoscopy after heart cath, but patient refused colonoscopy and wanted to be done as outpatient. Spoke with GI specialist and stated that colonoscopy could be done as outpatient. Patient was taking Plavix and was being held given her GI bleed, but at the time of discharge will be continued given the patient's history of stents. At the time of discharge patient is stable enough to be be discharged home. With instructions to follow-up with primary care physician as well as get a repeat hemoglobin and hematocrit in 1 week given her GI bleed. Discharge plan: Please follow-up with your PCP within 1 week of discharge,you are discharge on plavix , follow up CBC in a week out patient with your primary if HB drops hold plavix and see primary. Referral should be done by primary Please follow-up with GI Dr. Atwood within 1 week of discharge, will need referral from PCP. Please follow-up with inverform machine operator Dr. Kwesi Goins within 1 week of discharge. -You have been started on pantoprazole 40 Mg twice daily for 1 month, dose may be adjusted during follow-up with Dr. Atwood -You have been started Augmentin for 7 days -Continue taking all your medicines as prescribed -Recommended to return back to emergency department if your symptoms persist or does not improve. Problem list: #Dizziness #Ground-level fall #Acute anemia likely multifactorial #Under nourished #Hemorrhagic gastritis #Proteus mirabilis UTI #Acute on chronic CKD, stage III #Aortic stenosis #CAD status post stents #Hx of hypertension #Hx of hyperlipidemia Case disclosed with Attending Dr. Celestin and My senior Dr. Kelly PGY2. Weston Bermudez PGY1 Senior Resident Attestation: I discussed with and supervised the jewelry internship physician involved in the care of this patient. I personally saw and examined the patient and discussed the assessment and plan with the entire medicine team, including my attending. I agree with the discharge plan as documented above. Abhishek Kelly MD PGY2 Internal Medicine Status at Discharge Overall status at discharge: patient is progressing back to baseline Time Spent with Patient Time attestation: Total time spent providing and/or coordinating discharge services:>35 min Exam Vital Signs Temp Pulse Resp BP Pulse Ox O2 Del Method O2 Flow Rate 97.4 F 71 18 113/56 L 96 Room Air 1 10/03/24 16:00 10/03/24 16:00 10/03/24 16:00 10/03/24 16:00 10/03/24 16:00 10/03/24 16:00 10/01/24 16:00 Narrative Exam General: A/O x3, no acute distress, well-nourished, well-developed Eyes: PERRL, EOMI. Anicteric, vision grossly intact. Ears: No ear pain, no ear discharge, Hearing grossly intact. Nose: No nasal discharge. Mouth/Throat: Dry mucous membranes, no redness, no lesions. Neck: Neck supple, non-tender, no cervical lymphadenopathy. Lungs: Clear YASMINE to auscultation and percussion, No accessory muscle use. Cardio: Normal S1/S2, regular rhythm, systolic ejection murmur, no JVD Abdomen: Soft, non-tender, no palpable masses, peristalsis present, no guarding or rebound. Extremities: Symmetrical, no significant deformities, no peripheral edema , non-tender, peripheral pulses presents. Skin: No rashes, no lesions, warm to touch. Neuro: No focal neurological deficits. motor and sensory intact Discharge Plan Plan Patient Disposition: HOME (Self Care) Patient condition on transfer: Stable Care Plan Goals: Please follow-up with your PCP within 1 week of discharge, you are discharge on plavix , follow up CBC in a week out patient with your primary if HB drops hold plavix and see primary. Please follow-up with GI Dr. Atwood within 1 week of discharge, Referral should be done by primary Please follow-up with inverform machine operator Dr. Kwesi Goins within 1 week of discharge. -You have been started on pantoprazole 40 Mg twice daily for 1 month, dose may be adjusted during follow-up with Dr. Atwood -You have been started Augmentin for 7 days -Continue taking all your medicines as prescribed -Recommended to return back to emergency department if your symptoms persist or does not improve. Prescriptions/Referrals Prescriptions/Med Rec: New pantoprazole [Protonix] 40 mg tablet,delayed release (DR/EC) 40 mg PO BID Qty: 60 0RF amoxicillin-pot clavulanate 875-125 mg tablet 1 tab PO BID Qty: 14 0RF Continued clopidogrel 75 mg tablet 75 mg PO QAM Hold Instructions: Resume on 08/06/23. She can resume her Plavix when her urine is clear after removal of the Motley catheter and it is okay with the inverform machine operator and the hospitalist benazepril 40 mg tablet 40 mg PO QDAY rosuvastatin 40 mg tablet 40 mg PO QPM furosemide 20 mg Tablet 20 mg PO QDAY Referrals: Ant Valentin MD [Primary Care Provider] - Patient/Caregiver Discharge Instructions Other Discharge Activity Instructions:: Please follow-up with your PCP within 1 week of discharge,you are discharge on plavix , follow up CBC in a week out patient with your primary if HB drops hold plavix and see primary. Referral should be done by primary Please follow-up with GI Dr. Atwood within 1 week of discharge, will need referral from PCP. Please follow-up with inverform machine operator Dr. Kwesi Goins within 1 week of discharge. -You have been started on pantoprazole 40 Mg twice daily for 1 month, dose may be adjusted during follow-up with Dr. Atwood -You have been started Augmentin for 7 days -Continue taking all your medicines as prescribed -Recommended to return back to emergency department if your symptoms persist or does not improve. Other Discharge Diet Instructions: It is important to follow a heart healthy diet. Avoid foods saturated with fat, food and drinks with added sugar. Eat a well-balanced diet with plenty of fresh fruits, vegetables and whole grains if not contraindicated by your primary care provider. Choose water to hydrate yourself over any other type of drinks. Talk to your primary doctor for further advice for a diet that fits your nutritional body requirements and for an adequate exercise program to keep and improve your overall health condition. ALWAYS FOLLOW/CONSIDER YOUR PRIMARY CARE DOCTOR'S MEDICAL ADVICE BEFORE MAKING ANY CHANGES TO YOUR DIET OR LEVELS OF ACTIVITY. Should you have any other questions or concerns on regards today?s procedure; feel free to contact us to Care Team Assistant Department . Education Materials: Low-Fat Cooking Tips, Cardiac Catheterization Dc, Preventing Surgical Site Infections, Procedural Sedation, [facility] General SDC Instructions- Iraqi Print Language: Iraqi Activity Restrictions/Additional Instructions: Please call to schedule a follow up appointment with your primary care doctor 1- 2 weeks after discharge so he/she can make further recommendations about your overall health condition. DO NOT drive or operate any motor vehicle, heavy equipment or machinery in the next 24 hours. DO NOT perform any activity that requires you to be fully alert in the next 24 hour. DO NOT sign any documentation in the next 24 hours that requires a full understanding of what you are signing for. Do not perform any strenuous physical activity in the next 5 days. Avoid activities that require bending at your waist in the next 5 days. Avoid lifting objects 5 pounds or heavier in the next 5 days. Do not strain your bowel. If you experience constipation, drink plenty of fluids, especially water, if not contraindicated by your doctor. In addition, add foods rich in fiber. Should you experience constipation, talk to your doctor about other options that might help you alleviate it. Keep your blood pressure under control. If you take blood pressure medication, continue to take it if not contraindicated by your doctor. Doing so, helps to prevent post-complications such as bleeding. Take your new/previous medication as directed by the doctor. If there is no changes, continue to take medication at your usual time. After 5 days, start increasing the level of physical activity gradually for the subsequent 5 days. You can resume your shower routine tomorrow but keep your dressing clean and dry. Remove the dressing placed on the surgical incision 48 hours after discharge. After removing your dressing, you can gently clean your surgical site with soap and water and pad dry it. DO NOT rub site to prevent complication such as bleeding. DO NOT apply any lotions, creams, or powders on the surgical site until your skin completely heels (5 days or more). Should you experience any type of complications on your extremity such as pain, change in color, temperature, a bruise that increases in size and color at the surgical site (Groin Area), a lump (Hard or soft) that develops and increases in size at the surgical site (Groin Area), numbness, or changes in sensation, Chest pain, or shortness of breath; PLEASE GO TO THE NEAREST EMERGENCY ROOM IMMEDIATELY. Look out for signs of infection such as tenderness, redness, or drainage to your surgical site (Groin Area); if any, report them to your primary care doctor immediately. Should you have any other questions or concerns on regards today?s procedure; feel free to contact us to Care Team Assistant Department . Stand Alone Forms: Ka[employer] Award Info., Patient Portal Info Letter Discharge Order Discharge Orders: Discharge (Routine); Ordered 10/03/24 Ordered By: Kayleen Huang Quality Discharge Quality Measures VTE prophylaxis Attestestation MD Attestation I reviewed labs, imaging, EKG, home medications and prior available records. Face to face evaluation was performed by me. I have personally examined the patient and discussed assessment and plan with the IM team. I reviewed the resident note and agree with the plan with exceptions as below. Acute anemia ARIES on CKD stage III Upper GI bleed Proteus acute UTI CAD s/p stents H&H is stable. Monitor H&H Status post EGD: Showed esophagitis and gastritis with hemorrhage. Refused colonoscopy. Discussed with GI: Okay to continue diet. Outpatient colonoscopy which will need referral from PCP. Continue PPI twice daily P.o. Augmentin for the acute UTI Creatinine improved. Monitor kidney function. Avoid nephrotoxins. Cardiac catheterization was done and showed severe . She will need TAVR and CTA. Okay to DC from cardiology standpoint. Outpatient follow-up with cardiology. Time spent is 40 minutes. More than 50% of the time was spent on patient education and coordination of care.
== END 2024-10-03 18:07 | disposition home or self-care (01) | DRG 682 ==
LOC: SERX 23:37 → SERHOLD 09-29 03:10 → S3NX 09-29 04:11
PROVIDERS: Internal Medicine Cardiovascular Disease; Specialist; Admitting Provider Internal Medicine; Emergency Provider Emergency Medicine; PCP Family Medicine; Visit Provider Student in an Organized Health Care Education/Training Program
PROC: 0DJ08ZZ Inspection of Upper Intestinal Tract, Via Natural or Artificial Opening Endoscopic (ICD-10-PCS; CPT 43239; principal; 2024-10-01 15:00)
DX: I12.9 Hypertensive chronic kidney disease with stage 1 through stage 4 chronic kidney disease, or unspecified chronic kidney disease (principal); K29.71 Gastritis, unspecified, with bleeding; N18.4 Chronic kidney disease, stage 4 (severe); D62 Acute posthemorrhagic anemia; N39.0 Urinary tract infection, site not specified; N17.9 Acute kidney failure, unspecified; D63.1 Anemia in chronic kidney disease; R42 Dizziness and giddiness; I25.10 Atherosclerotic heart disease of native coronary artery without angina pectoris; Z95.5 Presence of coronary angioplasty implant and graft; E78.5 Hyperlipidemia, unspecified; F17.210 Nicotine dependence, cigarettes, uncomplicated; I35.0 Nonrheumatic aortic (valve) stenosis; Z66 Do not resuscitate; D51.8 Other vitamin B12 deficiency anemias; D50.9 Iron deficiency anemia, unspecified; Z59.86 Financial insecurity; K20.90 Esophagitis, unspecified without bleeding; B96.4 Proteus (mirabilis) (morganii) as the cause of diseases classified elsewhere; J45.909 Unspecified asthma, uncomplicated
CPT/HCPCS: 36415; 36430; 71045; 75625; 76770; 80048; 80053; 80307; 81001; 82043; 82570; 82607; 82728; 82746; 82810; 83036; 83540; 83550; 83615; 83690; 83735; 83880; 84443; 84484; 85025; 85610; 85730; 86850; 86900; 86901; 86923; 87077; 87086; 87186; 93005; 93225; 93306; 97162; 99152; 99153; 99285; A4649; C1769; C1894; J0171; J0461; J1200; J1643; J2250; J2310; J2371; J2470; J3010; J3420; J3490; J7040; J7050; P9016; Q0139; Q9967; A9270; J2305

== ENCOUNTER 2024-10-10 08:44 | Inpatient (IN) | payer MEDICARE, SELFPAY ==
[2024-10-10] VITALS (23 sets, daily range): BP systolic 69–141; BP diastolic 29–93; PULSE 57–91; RESP 13–19; TEMP 36.2–36.9; O2SAT 94–100; BMI 33.3
--- NOTE | 2024-10-10 09:14 | PD.EDWEAK ---
ED Weakness RME/HPI General Chief complaint: Weakness Stated complaint: WEAKNESS Time Seen by Provider: 10/10/24 09:14 Arrival date/time: 10/10/24 08:44 RME / HPI RME / HPI Narrative: 74 year old female with history of CAD s/p PCI, aortic stenosis, hypertension, hyperlipidemia presents to the ED BIBA from home for evaluation of chest pain and generalized weakness today. States chest pain is located most to the left side that occasionally radiates to bilateral arms. Described as aching in sensation, rating 5/10. Denies taking any medications at home for the pain. Denies fevers, chills, cough, shortness of breath, abdominal pain, or urinary symptoms. Per EMR review, patient was admitted here 09/29/2024 through 10/03/2024. Patient was noted to be anemic and received 3 units of PRBC's while admitted. Had an EGD performed by GI Dr. Atwood and found patient to have gastritis with hemorrhage, esophagitis, and blood-tinged bilious secretions in the descending duodenum. It was noted patient denied colonoscopy during admission. Related Data Home Medications ?Medication ?Instructions ?Recorded ?Confirmed benazepril 40 mg tablet 40 mg PO QDAY 08/03/23 09/29/24 clopidogrel 75 mg tablet 75 mg PO QAM 08/03/23 09/29/24 rosuvastatin 40 mg tablet 40 mg PO QPM 08/03/23 09/29/24 furosemide 20 mg tablet 20 mg PO QDAY 09/29/24 09/29/24 Previous Rx's ?Medication ?Instructions ?Recorded pantoprazole 40 mg tablet,delayed 40 mg PO BID #60 tabs 10/02/24 release (Protonix) amoxicillin 875 mg-potassium 1 tab PO BID #14 tabs 10/03/24 clavulanate 125 mg tablet Allergies Allergy/AdvReac Type Severity Reaction Status Date / Time No Known Allergies Allergy Verified 10/10/24 09:10 Review of Systems Review of Systems Narrative Review of Systems: GEN: No fever, no chills, no weight loss, +global weakness EYES: No discharge, no visual changes, no pain HEENT: No ear pain, no congestion, no sore throat PULM: No shortness of breath, no cough, no congestion CV:+ chest pain, no dyspnea on exertion, no palpitations GI: No nausea, no vomiting, no diarrhea, no pain, no constipation : No frequency, no urgency, no dysuria MUSC/SKEL: No joint pain, no back pain SKIN: No rash NEURO: +global weakness, no headache Past Medical History Past Medical History CARDIAC: Positive Cardiac Disorders and Valvular Heart Disease RESPIRATORY: Positive Asthma Surgical History SURGICAL: Positive Coronary Stent, Cardiac Catheterization and Hysterectomy Social History SMOKING STATUS: Current some day smoker SUBSTANCE USE: does not use ED Exam Narrative Physical exam: GENERAL APPEARANCE: alert and oriented x 4, well-developed, well-nourished, no acute distress, pale, smells of tobacco smoke HEENT: Normocephalic, atraumatic; pupils equal, round, reactive to light; EOMI; mucous membranes pink, moist; oropharynx clear NECK: Supple LUNGS: CTABL; no wheezes, no rales, no rhonchi HEART: Regular rate, regular rhythm; normal S1, S2; no murmurs ABDOMEN: non distended; normal BS; soft, no tenderness, no guarding, no rebound; no masses, no organomegaly, no hernia BACK: no CVA tenderness EXTREMITIES: atraumatic; no edema NEUROLOGIC: awake; alert and oriented x4; cranial nerves II-XII grossly intact; no focal sensory or motor deficits PSYCHIATRIC: appropriate mood and affect SKIN: warm, dry, pale; no rashes Course Course Course Narrative: 1004: SBP again dropped to 60's, will order 500cc IV fluids. Quality Measures none Orders Category Date Time Status Bedside Blood Glucose NOW Care 10/10/24 11:55 Active Rod Hanger NOW Care 10/10/24 09:16 Active EKG (ED ONLY) *Do not use* NOW Care 10/10/24 09:16 Completed Insert IV NOW Care 10/10/24 11:06 Active Occult Blood,Stool (Nursing) ONCE Care 10/10/24 09:58 Active Transfuse,blood/blood products NOW Care 10/10/24 09:50 Active EKG (ED Only) Stat Exams 10/10/24 09:16 Draft XR chest 1V portable Stat Exams 10/10/24 09:16 Completed B-Type Natriuretic Peptide Stat Lab 10/10/24 09:22 Completed CBC Stat Lab 10/10/24 09:22 Completed Comprehensive Metabolic Panel Stat Lab 10/10/24 09:22 Completed Lipase Stat Lab 10/10/24 09:22 Completed Magnesium Stat Lab 10/10/24 09:22 Completed Occult Blood, Stool (LAB) Stat Lab 10/10/24 12:09 Completed Partial Thromboplastin Time Stat Lab 10/10/24 09:22 Completed Prothrombin Time with INR Stat Lab 10/10/24 09:22 Completed Red Blood Cells Stat Lab 10/10/24 10:18 Results Troponin I Stat Lab 10/10/24 09:22 Completed Type and Screen Stat Lab 10/10/24 10:18 Results Acetaminophen Tab [Tylenol Tab] Med 10/10/24 11:10 Discontinued 650 mg PO X1 ONE Calcium Gluc/Ns 1000MG Ivpb [Calcium Gluc/Ns 1000mg Med 10/10/24 10:19 Discontinued Ivpb] 1,000 mg in 50 ml IV X1 Dextrose 50% Syr [D50w Syringe Abboject] Med 10/10/24 10:20 Discontinued 50 ml IV X1 ONE Insulin Regular Med 10/10/24 10:20 Discontinued 5 unit IV X1 ONE Sod Polystyrene Sulfon Susp [Kayexalate Susp] Med 10/10/24 12:41 Discontinued 30 gm PO X1 ONE Sodium Chloride 0.9% 1000 ml [Ns] 1,000 ml Med 10/10/24 10:19 Discontinued IV 999 mls/hr Sodium Chloride 0.9% 500 ml [Ns] 500 ml Med 10/10/24 10:06 Discontinued IV 999 mls/hr Oxygen Delivery NOW RT 10/10/24 12:00 Active Vital Signs Vital signs: Vital Signs Temperature 98.3 F 10/10/24 09:08 Pulse Rate 70 10/10/24 09:08 Respiratory Rate 17 10/10/24 09:08 Blood Pressure 69/40 L 10/10/24 09:08 Pulse Oximetry (%) 98 10/10/24 09:08 Oxygen Delivery Method Room Air 10/10/24 09:08 Pulse ox is 98% on room air which is adequate. Weakness MDM Narrative MDM Narrative:: Raquel Marina am scribing for and in the presence of Dr. Granados. Patient data External records reviewed:: [facility] previous records (I reviewed admission from 09/29/2024 through 10/03/2024) and EMS form Clinical information provided by:: patient and EMS Social determinants that could affect healthcare access:: none Patient has the following chronic illnesses:: CAD s/p PCI, aortic stenosis, hypertension, hyperlipidemia How is presenting disease/condition affected by chronic disease/condition?: exacerbated by Evaluation data The following diagnostics were reviewed and interpreted by me:: lab results, radiology exam(s) and EKG tracing(s) (Sinus rhythm, rate 64, ST depression in I, II without reciprocal changes ) Lab and/or radiology exams considered but not ordered:: None Interpretation Summary: Ordering Physician: Yashira Granaods MD Date of Service: 10/10/24 Procedure(s): XR chest 1V portable Accession Number(s): [id number] cc: Daquan Simeon MD; Yashira Granados MD~ Examination: AP chest single view Technique one AP portable sitting chest single view Exam date and time: October 10, 2024 0939 hours Comparison September 28, 2024 INDICATIONS: Onset chest pain today. FINDINGS: Mild prominence left ventricle No lobar pneumonia or pulmonary edema Prominent osteopenia IMPRESSION: No lobar pneumonia or pulmonary edema Dictated By: Daquan Simeon MD Signed By: <Electronically signed by Daquan Simeon MD in OV> 10/10/24 1045 Medications / Prescriptions Medications or Prescriptions considered but not ordered:: None Medication administrations:: Medication Administration History Acetaminophen (Acetaminophen 325 Mg Tablet) 650 mg PO Q6H PRN PRN Reason: Fever >100.5 Stop: 11/09/24 14:05 Acetaminophen (Acetaminophen 325 Mg Tablet) 650 mg PO Q6H PRN PRN Reason: PAIN SCALE 1-3 (mild Stop: 11/09/24 14:05 Docusate Sodium (Docusate Sod 100 Mg Capsule) 100 mg PO QDAY [facility]; Protocol Stop: 11/10/24 08:59 Sodium Chloride (Ns) 1,000 mls @ 999 mls/hr IV .Q1H1M ONE Stop: 10/10/24 15:18 Last Admin: 10/10/24 14:36 Dose: 999 mls/hr Documented By: DONALD Ondansetron HCl (Ondansetron Inj 2 Mg/Ml Inj 2 Ml) 4 mg IV Q6H PRN; Protocol PRN Reason: NAUSEA OR VOMITING Stop: 11/09/24 14:05 Discontinued Medications Acetaminophen (Acetaminophen 325 Mg Tablet) 650 mg PO X1 ONE Stop: 10/10/24 11:11 Last Admin: 10/10/24 11:40 Dose: 650 mg Documented By: DONALD Dextrose (Dextrose 50%-Water Inj 50 Ml Syringe) 50 ml IV X1 ONE Stop: 10/10/24 10:21 Last Admin: 10/10/24 10:45 Dose: 50 ml Documented By: KETURAH Sodium Chloride (Ns) 500 mls @ 999 mls/hr IV .Q31M ONE Stop: 10/10/24 10:36 Last Infusion: 10/10/24 10:51 Dose: Infused Documented By: Admin: 10/10/24 10:07 Dose: 999 mls/hr Documented By: DONALD Sodium Chloride (Ns) 1,000 mls @ 999 mls/hr IV .Q1H1M ONE Stop: 10/10/24 11:19 Last Infusion: 10/10/24 11:43 Dose: Infused Documented By: Admin: 10/10/24 10:40 Dose: 999 mls/hr Documented By: KETURAH Calcium Gluconate/Sodium Chloride (Calcium Gluc/Ns 1000mg Ivpb) 1,000 mg in 50 mls @ 50 mls/hr IV X1 ONE Stop: 10/10/24 11:18 Last Infusion: 10/10/24 11:51 Dose: Infused Documented By: Admin: 10/10/24 10:42 Dose: 50 mls/hr Documented By: KETURAH Insulin Human Regular (Insulin Hum Regular 1 Unit/0.01 Ml (Per Unit)) 5 unit IV X1 ONE Stop: 10/10/24 10:21 Last Admin: 10/10/24 10:51 Dose: 5 unit Documented By: KETURAH Co-signed By: DO Sodium Polystyrene Sulfonate (Sod Polystyrene Sulfon Susp 15 Gm/60 Ml Btl) 30 gm PO X1 ONE Stop: 10/10/24 12:42 Last Admin: 10/10/24 13:51 Dose: 30 gm Documented By: DONALD See above Consultations Consultation(s) initiated? (list below): Yes Consultation #1 (Physician, Specialty, Details): I spoke with resident Dr. Doshi working with Dr. Celestin. Discussed patients PMHx, HPI, ED course, exam findings, labs, and radiology results. The hospitalist agree to accept the patient for admission. Diagnosis Weakness Differential Diagnosis: acute myocardial infarction, anemia, hypothyroidism, rhabdomyolysis, sepsis and dehydration Most likely diagnosis given after review of the tests above:: Melena Dehydration ARIES Symptomatic anemia Hyperkalemia Admission Indicated Admission indicated?: indicated Admission Request Was there a request for admission?: Yes Admission Attestation Admission request attestation: Discussed case with [] from Hospitalist service regarding admission. Discussed patients ED course, exam findings, labs, and radiology results. The Hospitalist [agrees,declines] to accept the patient for admission. Disposition Plan Disposition Plan: Admit Critical Care Time Critical Care Time Critical Care Time: Yes Total Critical Care Time (min.): 30 Attestation: The high probability of sudden, clinically significant deterioration in the patient's condition required the highest level of my preparedness to intervene urgently. The services I provided to this patient were to treat and/or prevent clinically significant deterioration. Services included the following: chart data review, reviewing nursing notes and/or old charts, documentation time, consultant in ergonomics and safety collaboration regarding findings and treatment options, medication orders and management, direct patient care, vital sign assessments and ordering, interpreting and reviewing diagnostic studies and lab tests. Aggregate critical care time includes only time during which I was engaged in work directly related to the patient's care, as described above, whether at bedside or elsewhere in the Emergency Department. It did not include time spent performing other reported procedures or the services of residents, students, nurses or physician assistants. Discharge Plan Plan Patient Disposition: Admit Acute Care w/in Hospital Problem List Clinical Impression: Melena, Dehydration, ARIES (acute kidney injury), Symptomatic anemia, Hyperkalemia
--- NOTE | 2024-10-10 09:16 | EKG_ITS ---
[facility] Test Date: 2024-10-10 Pat Name: VERENICE GIVENS Department: Room: - Gender: Female Basting Puller: : 1950 Requested By: Yashira England Order Number: [id number] Reading MD: Yashira England Measurements Intervals [place] Rate: 64 P: 55 OK: 247 QRS: 48 QRSD: 95 T: 37 QT: 361 QTc: 373 Interpretive Statements SINUS RHYTHM WITH FIRST DEGREE AV BLOCK NONSPECIFIC ST & T-WAVE ABNORMALITY Compared to ECG 09/28/2024 19:50:56 T-wave abnormality now present Ventricular premature complex(es) no longer present ST (T wave) deviation no longer present /store/S0/[id number]/ecg/[id number].pdf
[2024-10-10 09:45] LABS: Basophils # (Auto) 0.1 Thou/mm3 (0.0-0.2); Basophils % (Auto) 1 % (0-2.5); Eosinophils # (Auto) 0.2 Thou/mm3 (0.0-0.5); Eosinophils % (Auto) 3 % (0-10); Immature Granulocytes % (Auto) 1 % (0-0); Immature Granulocytes Auto 0.04 Thou/mm3 (0.00-0.00); Lymphocytes # (Auto) 1.6 Thou/mm3 (1.0-4.8); Lymphocytes % (Auto) 21 % (10-50); Mean Corpuscular HGB Conc 31.2 g/dl (31.0-37.0); Mean Corpuscular Hemoglobin 31.6 pg (25.0-35.0); Mean Corpuscular Volume 101 fL (80-100); Monocytes # (Auto) 0.4 Thou/mm3 (0.0-0.8); Monocytes % (Auto) 5 % (0-12); Neutrophils # (Auto) 5.3 Thou/mm3 (1.8-7.7); Neutrophils % (Auto) 70 % (37-80); Nucleated Red Blood Cell % 0 /100 WBC (0); Platelet Count 164 Thou/mm3 (140-440); RDW Standard Deviation 69.6 fL (36.4-46.3); Red Blood Count 1.87 Miln/mm3 (4.00-5.20); White Blood Count 7.6 Thou/mm3 (3.6-11.0)
[2024-10-10 09:49] LABS: Hematocrit 18.9 % (36.0-46.0); Hemoglobin 5.9 g/dL (12.0-16.0)
[2024-10-10 10:01] LABS: B-Type Natriuretic Peptide 93 pg/mL (0-100)
[2024-10-10] MEDS: SODIUM CHLORIDE 0.9% 500 ML 500 ML 999 ML IV (10:07)
[2024-10-10 10:08] LABS: Alanine Aminotransferase 34 U/L (10-49); Albumin, Serum 3.9 gm/dL (3.4-4.8); Albumin/Globulin Ratio 1.8 (1.2-2.2); Alkaline Phosphatase 50 U/L (46-116); Anion Gap 9 (7-16); Aspartate Amino Transferase 49 U/L (0-34); BUN/Creatinine Ratio 28 Ratio (12-20); Bilirubin,Total 0.3 mg/dL (0.3-1.2); Blood Urea Nitrogen 81 mg/dL (9-23); Calcium 9.1 mg/dL (8.3-10.6); Calcium (Corrected) 9.2 mg/dL (8.5-10.1); Carbon Dioxide 21.2 mMol/L (20.0-31.0); Chloride 108 mMol/L (98-107); Creatinine (Component) 2.9 mg/dL (0.6-1.3); Estimated Creatinine Clearance 14.6 mL/min (>60); Globulin 2.2 gm/dL (2.3-3.5); Glucose 95 mg/dL (74-106); Lipase 60 U/L (12-53); Magnesium 2.6 mg/dL (1.6-2.6); Osmolality,Calculated 300 (275-295); Sodium 138 mMol/L (136-145); Total Protein 6.1 gm/dL (5.7-8.2); Troponin I 0.022 ng/mL (0.0-0.045); eGFR 16 See Note
[2024-10-10 10:18] LABS: Potassium 6.1 mMol/L (3.4-5.1)
[2024-10-10] MEDS: SODIUM CHLORIDE 0.9% 1000 ML 1,000 ML 999 ML IV ×2 (10:40→14:36)
[2024-10-10] MEDS: CALCIUM GLUC/NS 1000MG IVPB 1,000 MG/50 ML BAG 50 MG IV (10:42)
[2024-10-10] MEDS: DEXTROSE 50%-WATER INJ 50 ML SYRINGE IV ×2 (10:45→16:46)
[2024-10-10] MEDS: INSULIN HUM REGULAR 1 UNIT/0.01 ML (PER UNIT) 5 UNIT IV ×2 (10:51→16:58)
[2024-10-10] MEDS: ACETAMINOPHEN 325 MG TABLET 650 MG PO (11:40)
[2024-10-10 12:18] LABS: OBS Card Lot # 23001; OBS Developer Lot # 23003; OBS Performed By boted; OBS QC OK? Yes; Occult Blood, Stool Positive (Negative)
[2024-10-10] MEDS: SOD POLYSTYRENE SULFON SUSP 15 GM/60 ML BTL 30 GM PO ×2 (13:51→16:55)
--- NOTE | 2024-10-10 14:22 | PD.RESHP ---
Documentation for date of: 10/10/24 Senior resident attestation: Patient evaluated and examined at the bedside, plan of care discussed with rest of the team including my attending physician, except as noted. 74-year-old female history of CAD s/p stent, severe aortic stenosis, scheduled for TAVR outpatient, follows real estate agent/broker Dr. Ellen Goins, currently on Plavix, presented with acute GI bleed and anemia. Reported dark stools as well as recent blood transfusions 2 weeks ago during previous hospitalization, workup for GI bleeding was done, EGD showed esophagitis, patient refused colonoscopy and was recommended to have outpatient colonoscopy but had to come into the ER due to feeling weak. Labs pertinent for hemoglobin 5.9, potassium 6.1, BUN 81, creatinine 2.9, also noted hypertension blood pressure 94/39, MAP 57, on repeat BP measurement MAP more than 65, ER already ordered blood transfusion. Reached out to real estate agent/broker who recommended withholding Plavix, and will get gastroenterology Dr. Atwood on board, continue to monitor closely for development of hemorrhagic shock as well as concern for volume overload given history of severe . Quresh PGY2 HPI History of Present Illness Chief complaint: Generalized weakness History of present illness: 74-year-old smoker female with past medical history of coronary artery disease status post stent placement, severe aortic valve stenosis, asthma, hypertension, hyperlipidemia, presented to the ED due to generalized weakness. Patient states that for the past 2 days patient has been having black stools with associated lightheadedness and dizziness. Of note patient had recent admission on 09/29/2024 and received 3 PRBC transfusions had EGD done by GI Dr. Atwood and found patient to have gastritis with hemorrhage, esophagitis, and blood-tinged bilious secretions in the descending duodenum. Patient was recommended to have colonoscopy however patient refused at point in time. Denies shortness of breath, denies chest pain, denies nausea, vomiting ED course: Vitals on arrival significant for hypotension blood pressure 69/40, rest of vitals noted, labs significant for hemoglobin 5.9, potassium 6.1, BUN 81, creatinine 2.9, positive stool occult. EKG showed sinus rhythm with first-degree AV block. Chest x-ray negative. In the ED patient received 2.5 L normal saline, hyperkalemia cocktail, PMHx: Coronary artery disease, hypertension, hyperlipidemia, aortic valve stenosis, asthma SX Hx: Cardiac stents, cholecystectomy Social Hx: Denies alcohol use, denies drug use, is an active smoker last cigarette 2 to 3 days ago FHx: Unknown Review of Systems Review of Systems Narrative Review of Systems: Narrative ROS GENERAL: Denies fevers/chills or diaphoresis. HEENT: Denies headache or visual/hearing changes. Denies nasal discharge. NEURO: Generalized weakness, lightheadedness CARDIO: + chest pain or palpitations. PULM: Denies SOB, coughing, or wheezing. GI: Denies abdominal pain, N/V/C/D/reflux/gas, bright red blood per rectum or melena. Reports having BMs. URO: Denies burning/itching/pain/urinary changes. MANAGER PROPOSAL: Denies menstrual changes, hot flashes. MSK/EXT/SKIN: Denies joint/skeletal/muscle pain, issues/changes in upper or lower extremities, itchiness, or superficial pain. PSYCH: Cooperative, pleasant mood & affect. The rest of the review of systems is otherwise negative. Exam Vital Signs Temp Pulse Resp BP Pulse Ox O2 Del Method O2 Flow Rate 98.5 F 62 16 122/46 L 100 Nasal Cannula 2 10/10/24 14:11 10/10/24 14:11 10/10/24 14:11 10/10/24 14:11 10/10/24 14:11 10/10/24 11:00 10/10/24 14:11 Narrative Exam Physical Exam GENERAL: NAD, AAOx3 HEENT: Dry mucosa. Eyes open, symmetrical, & clear CARDIO: Heart RRR, right upper sternal border and mitral area murmur radiating to the carotids PULM: No noted coughing/dyspnea CTA B/L, no R/W/R GI: Abdomen soft, nondistended, no pain on palpation. BSx4 SKIN/MSK/EXT: No wounds/rashes/edema/amputations, no pain on palpation. Pedal pulses present B/L NEURO: AAOx3, no focal neuro deficits, able to move all 4 extremities Results: Labs 10/11/24 05:44 10/11/24 05:44 Labs: Short CBC 10/10/24 Range/Units 09:22 WBC 7.6 (3.6-11.0) Thou/mm3 Hgb 5.9 L* (12.0-16.0) g/dL Hct 18.9 L* (36.0-46.0) % Plt Count 164 (140-440) Thou/mm3 [facility] 10/10/24 09:22 Sodium 138 Potassium 6.1 H* Chloride 108 H Carbon Dioxide 21.2 BUN 81 H Creatinine 2.9 H Glucose 95 Calcium 9.1 Cardiac Enzymes 10/10/24 Range/Units 09:22 Troponin I 0.022 (0.0-0.045) ng/mL Liver Function 10/10/24 Range/Units 09:22 Total Bilirubin 0.3 (0.3-1.2) mg/dL AST 49 H (0-34) U/L ALT 34 (10-49) U/L Alkaline Phosphatase 50 (46-116) U/L Albumin 3.9 (3.4-4.8) gm/dL Quality Measures Quality Measures none Advance care planning discussed with:: patient Medications Home Medications and Allergies Home Medications ?Medication ?Instructions ?Recorded ?Confirmed ?Type benazepril 40 mg tablet 40 mg PO QDAY 08/03/23 10/10/24 History clopidogrel 75 mg tablet 75 mg PO QAM 08/03/23 10/10/24 History rosuvastatin 40 mg tablet 40 mg PO DAILY 08/03/23 10/10/24 History propranolol 10 mg tablet 10 mg PO BID 10/10/24 10/10/24 History Allergies Allergy/AdvReac Type Severity Reaction Status Date / Time No Known Allergies Allergy Verified 10/11/24 14:05 Visit Medications Acetaminophen (Acetaminophen 325 Mg Tablet) 650 mg PO Q6H PRN PRN Reason: Fever >100.5 Stop: 11/09/24 14:05 Acetaminophen (Acetaminophen 325 Mg Tablet) 650 mg PO Q6H PRN PRN Reason: PAIN SCALE 1-3 (mild Stop: 11/09/24 14:05 Docusate Sodium (Docusate Sod 100 Mg Capsule) 100 mg PO QDAY [facility]; Protocol Stop: 11/10/24 08:59 Sodium Chloride (Ns) 1,000 mls @ 999 mls/hr IV .Q1H1M ONE Stop: 10/10/24 15:18 Ondansetron HCl (Ondansetron Inj 2 Mg/Ml Inj 2 Ml) 4 mg IV Q6H PRN; Protocol PRN Reason: NAUSEA OR VOMITING Stop: 11/09/24 14:05 Discontinued Medications Acetaminophen (Acetaminophen 325 Mg Tablet) 650 mg PO X1 ONE Stop: 10/10/24 11:11 Last Admin: 10/10/24 11:40 Dose: 650 mg Dextrose (Dextrose 50%-Water Inj 50 Ml Syringe) 50 ml IV X1 ONE Stop: 10/10/24 10:21 Last Admin: 10/10/24 10:45 Dose: 50 ml Sodium Chloride (Ns) 500 mls @ 999 mls/hr IV .Q31M ONE Stop: 10/10/24 10:36 Last Infusion: 10/10/24 10:51 Dose: Infused Sodium Chloride (Ns) 1,000 mls @ 999 mls/hr IV .Q1H1M ONE Stop: 10/10/24 11:19 Last Infusion: 10/10/24 11:43 Dose: Infused Calcium Gluconate/Sodium Chloride (Calcium Gluc/Ns 1000mg Ivpb) 1,000 mg in 50 mls @ 50 mls/hr IV X1 ONE Stop: 10/10/24 11:18 Last Infusion: 10/10/24 11:51 Dose: Infused Insulin Human Regular (Insulin Hum Regular 1 Unit/0.01 Ml (Per Unit)) 5 unit IV X1 ONE Stop: 10/10/24 10:21 Last Admin: 10/10/24 10:51 Dose: 5 unit Sodium Polystyrene Sulfonate (Sod Polystyrene Sulfon Susp 15 Gm/60 Ml Btl) 30 gm PO X1 ONE Stop: 10/10/24 12:42 Last Admin: 10/10/24 13:51 Dose: 30 gm Assessment & Plan Plan 74-year-old smoker female with past medical history of coronary artery disease status post stent placement, severe aortic valve stenosis, asthma, hypertension, hyperlipidemia, presented to the ED due to generalized weakness. Admitted for acute blood loss anemia secondary to GI bleed. #Acute blood loss anemia #GI bleed, likely upper #Hypotension Patient states having rectal stools for the past 2 days Of note patient had recent admission on 09/29/2024 and received 3 PRBC transfusions had EGD done by GI Dr. Atwood and found patient to have gastritis with hemorrhage, esophagitis, and blood-tinged bilious secretions in the descending duodenum. Patient was recommended to have colonoscopy however patient refused at point in time. In the ED patient received 2 PRBC transfusions FOBT positive Hemoglobin on admission 5.9, MAP is in the 50-60s. And blood pressure with systolic blood pressure in the high 80s -Ordered 2 PRBCs -1 L NS bolus ordered -Pantoprazole 40 mg IV twice daily -Monitor posttransfusion H&H -GI Dr. Atwood consulted, appreciate recommendations #Hyperkalemia Potassium on admission 6.1 EKG did not show any hyperacute T waves In the ED patient received hyperkalemia cocktail -Follow-up BMP -Consider calcium gluconate and hyperkalemia cocktail again if potassium remains elevated #ARIES on CKD stage IIIa -On IV fluids -Avoid nephrotoxins -Renally dose medications #History of severe aortic stenosis #History of CAD status post stents #Hypertension #Hyperlipidemia Patient has history of severe aortic stenosis based on previous echocardiogram by Dr. Goins On physical examination murmur is appreciated on right upper sternal border radiating to the carotids Spoke to Dr. Goins cardiology no need to resume Plavix at this time Blood pressure soft at this time MAP in the 50s-60s Echo showed Severe calcific Aortic valve mean gradient 47mmHg, vmax 4.4m/s. Peak Gradient 78 mm hG Normal LV size and function. Mild LVH. Estimated EF 60-65% Normal RV size and function. Mild mitral regurgitation Trace tricuspid regurgitation -Resume antihypertensive when appropriate -Atorvastatin 40 mg daily #Tobacco use Patient is an active smoker last cigarette was 2 days ago states she only smokes half a cigarette -Consider nicotine patch Case discussed with my senior Dr. Doshi PGY-[address] Fawad Pham MD PGY-1 Disposition: Telemetry Fluids: NS Feeding: Clear liquid diet Thrombo prophylaxis: SCDs Gastric Ulcer prophylaxis: Pantoprazole 40 mg IV twice daily CODE STATUS: Full code Attending Provider Attestation/Addendum I reviewed labs, imaging, EKG, home medications and prior available records. Face to face evaluation was performed by me. I have personally examined the patient and discussed assessment and plan with the IM team. I reviewed the resident note and agree with the plan with exceptions as below. Acute blood loss anemia GI bleed Acute hypotension Hyperkalemia ARIES on CKD stage IIIa CAD status post stenting History of ALS Plan: Ordered 2 PRBC. Monitor H&H posttransfusion Consulted GI for EGD/colonoscopy Received treatment for his hyperkalemia per ED protocol. Follow-up BMP Volume resuscitation with transfusion. Monitor kidney function. Avoid nephrotoxins. Renally dosed medications Discussed with cardiology: Held Plavix
[2024-10-10 14:59] LABS: Anion Gap 9 (7-16); BUN/Creatinine Ratio 24 Ratio (12-20); Blood Urea Nitrogen 61 mg/dL (9-23); Calcium 8.6 mg/dL (8.3-10.6); Carbon Dioxide 18.1 mMol/L (20.0-31.0); Chloride 113 mMol/L (98-107); Creatinine (Component) 2.5 mg/dL (0.6-1.3); Estimated Creatinine Clearance 16.9 mL/min (>60); Glucose 92 mg/dL (74-106); Osmolality,Calculated 296 (275-295); Potassium 5.6 mMol/L (3.4-5.1); Sodium 140 mMol/L (136-145); eGFR 19 See Note
[2024-10-10] MEDS: PANTOPRAZOLE INJ 40 MG VIAL IV ×2 (15:37→20:39)
[2024-10-10] MEDS: CALCIUM CHLORIDE 10% INJ 10 ML SYRG IV (16:49)
[2024-10-10] MEDS: Sodium Bicarb Inj 8.4% SYR 50 ML SYRINGE IV (16:51)
[2024-10-10] MEDS: SODIUM CHLORIDE RT SOL 0.9% 3 ML NEBU INH (16:52)
[2024-10-10] MEDS: ALBUTEROL RT 2.5 MG/0.5 ML NEBU 10 MG INH (16:52)
--- NOTE | 2024-10-10 18:00 | PC.NURSE ---
Per Dr. Godfrey, hold off on the 4th unit of blood until a repeat hemoglobin, call them back with updated hemoglobin to see if the 4th unit of blood needs to be given
--- NOTE | 2024-10-10 19:21 | PC.NURSE ---
LAB AT BEDSIDE TO DRAW REPEAT H/H
[2024-10-10 19:53] LABS: Hemoglobin 9.7 g/dL (12.0-16.0)
[2024-10-10] MEDS: ATORVASTATIN CALCIUM 20 MG TABLET 40 MG PO (20:39)
--- NOTE | 2024-10-10 21:34 | PC.NURSE ---
per dr Balderas via telephone hold 4th unit of blood now.
--- NOTE | 2024-10-10 21:48 | PD.IMCONS ---
HPI Data of Consult Requesting Physician: Luis Celestin MD Primary Care Provider: Ant Valentin MD Consult Narrative Reason for consult: Melena H/H 5.9/18.9 History of present illness: 74 years old female presented with melanotic stools and a hemoglobin of 5.9 and 18.9 She does have a history of coronary artery disease status post PCI currently on Plavix aortic stenosis essential hypertension She was here 2 weeks ago when she presented with a similar hemoglobin of 5.3 and 16.2 underwent upper endoscopy which shows blood-tinged fluid in the small intestine suggestive of a small bowel bleed She had refused colonoscopy at that time and wanted to do that as an outpatient I been consulted again cc:: cc: Luis Celestin MD Review of Systems Review of Systems Systems Reviewed: All systems reviewed, normal except as documented Past Medical History Surgical History OTHER SURGICAL HX: Coronary artery status post PCI Aortic stenosis Essential hypertension On Plavix Meds Home Medications and Allergies Home Medications ?Medication ?Instructions ?Recorded ?Confirmed ?Type benazepril 40 mg tablet 40 mg PO QDAY 08/03/23 10/10/24 History clopidogrel 75 mg tablet 75 mg PO QAM 08/03/23 10/10/24 History rosuvastatin 40 mg tablet 40 mg PO DAILY 08/03/23 10/10/24 History propranolol 10 mg tablet 10 mg PO BID 10/10/24 10/10/24 History Allergies Allergy/AdvReac Type Severity Reaction Status Date / Time No Known Allergies Allergy Verified 10/11/24 14:05 Exam Vital Signs Temp Pulse Resp BP Pulse Ox O2 Del Method O2 Flow Rate 97.5 F 70 18 103/33 L 98 Room Air 2 10/10/24 18:39 10/10/24 18:39 10/10/24 18:39 10/10/24 18:39 10/10/24 18:39 10/10/24 17:55 10/10/24 18:39 Constitutional Comments: Alert oriented Routine Respiratory Exam Comments: Normal to auscultation Routine Cardiovascular Exam Comments: Systolic murmur Routine Abdominal Exam Comments: Soft nontender Results Labs 10/11/24 05:44 10/11/24 05:44 Labs: Short CBC 10/10/24 10/10/24 Range/Units 09:22 19:21 WBC 7.6 (3.6-11.0) Thou/mm3 Hgb 5.9 L* 9.7 L D (12.0-16.0) g/dL Hct 18.9 L* 30.0 L D (36.0-46.0) % Plt Count 164 (140-440) Thou/mm3 BMP 10/10/24 10/10/24 09:22 14:27 Sodium 138 140 Potassium 6.1 H* 5.6 H D Chloride 108 H 113 H Carbon Dioxide 21.2 18.1 L BUN 81 H 61 H Creatinine 2.9 H 2.5 H Glucose 95 92 Calcium 9.1 8.6 Cardiac Enzymes 10/10/24 Range/Units 09:22 Troponin I 0.022 (0.0-0.045) ng/mL Liver Function 10/10/24 Range/Units 09:22 Total Bilirubin 0.3 (0.3-1.2) mg/dL AST 49 H (0-34) U/L ALT 34 (10-49) U/L Alkaline Phosphatase 50 (46-116) U/L Albumin 3.9 (3.4-4.8) gm/dL Assessment and Plan Additional Assessment & Plan Additional Plan: # Acute GI bleed in the form of melena # Acute posthemorrhagic anemia # 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
[2024-10-11] VITALS (25 sets, daily range): BP systolic 96–148; BP diastolic 44–77; PULSE 64–270; RESP 12–98; TEMP 35.7–36.6; O2SAT 91–100; BMI 32.8
[2024-10-11 06:24] LABS: Basophils # (Auto) 0.1 Thou/mm3 (0.0-0.2); Basophils % (Auto) 1 % (0-2.5); Eosinophils # (Auto) 0.2 Thou/mm3 (0.0-0.5); Eosinophils % (Auto) 3 % (0-10); Hemoglobin 9.3 g/dL (12.0-16.0); Immature Granulocytes % (Auto) 0 % (0-0); Immature Granulocytes Auto 0.02 Thou/mm3 (0.00-0.00); Lymphocytes # (Auto) 1.4 Thou/mm3 (1.0-4.8); Lymphocytes % (Auto) 22 % (10-50); Mean Corpuscular HGB Conc 33.2 g/dl (31.0-37.0); Mean Corpuscular Hemoglobin 30.3 pg (25.0-35.0); Mean Corpuscular Volume 91 fL (80-100); Monocytes # (Auto) 0.5 Thou/mm3 (0.0-0.8); Monocytes % (Auto) 9 % (0-12); Neutrophils # (Auto) 3.9 Thou/mm3 (1.8-7.7); Neutrophils % (Auto) 64 % (37-80); Nucleated Red Blood Cell % 0 /100 WBC (0); Platelet Count 118 Thou/mm3 (140-440); RDW Standard Deviation 58.5 fL (36.4-46.3); Red Blood Count 3.07 Miln/mm3 (4.00-5.20)
[2024-10-11 06:52] LABS: Alanine Aminotransferase 51 U/L (10-49); Albumin, Serum 3.1 gm/dL (3.4-4.8); Albumin/Globulin Ratio 1.8 (1.2-2.2); Alkaline Phosphatase 42 U/L (46-116); Anion Gap 8 (7-16); Aspartate Amino Transferase 76 U/L (0-34); BUN/Creatinine Ratio 28 Ratio (12-20); Bilirubin,Total 0.3 mg/dL (0.3-1.2); Blood Urea Nitrogen 53 mg/dL (9-23); Calcium 8.7 mg/dL (8.3-10.6); Calcium (Corrected) 9.4 mg/dL (8.5-10.1); Carbon Dioxide 22.9 mMol/L (20.0-31.0); Cardiac Risk Estimate 3.5 RATIO (3.7-5.6); Chloride 115 mMol/L (98-107); Cholesterol 73 mg/dL (132-200); Creatinine (Component) 1.9 mg/dL (0.6-1.3); Globulin 1.7 gm/dL (2.3-3.5); Glucose 90 mg/dL (74-106); HDL Cholesterol 21 mg/dL (40-60); LDL Cholesterol,Calculated 40 mg/dL (0-130); Magnesium 2.1 mg/dL (1.6-2.6); Osmolality,Calculated 304 (275-295); Phosphorous 3.5 mg/dL (2.4-5.1); Potassium 4.6 mMol/L (3.4-5.1); Sodium 146 mMol/L (136-145); Thyroid Stimulating Hormone 2.47 uIU/mL (0.55-4.78); Total Protein 4.8 gm/dL (5.7-8.2); Triglycerides 61 mg/dL (30-150); eGFR 27 See Note
[2024-10-11] MEDS: PANTOPRAZOLE INJ 40 MG VIAL IV ×2 (08:44→20:26)
--- NOTE | 2024-10-11 10:36 | PC.SS ---
Update: Patient is pending colonoscopy. Dr. Atwood to conduct procedure.
[2024-10-11] MEDS: RINGERS LACTATED 1000 ML 1,000 ML 75 ML IV (10:43)
--- NOTE | 2024-10-11 11:06 | PD.RESPRO ---
Documentation for date of: 10/11/24 Senior resident attestation: Patient evaluated and examined at the bedside, plan of care discussed with rest of the team including my attending physician, except as noted. 74-year-old female history of CAD s/p stent, severe aortic stenosis, scheduled for TAVR outpatient, follows microbiology technician Dr. Ellen Goins, currently on Plavix, presented with acute GI bleed and anemia. Reported dark stools as well as recent blood transfusions 2 weeks ago during previous hospitalization, workup for GI bleeding was done, EGD showed esophagitis, patient refused colonoscopy and was recommended to have outpatient colonoscopy but had to come into the ER due to feeling weak. Labs pertinent for hemoglobin 5.9, potassium 6.1, BUN 81, creatinine 2.9, also noted hypertension blood pressure 94/39, MAP 57, on repeat BP measurement MAP more than 65, ER already ordered blood transfusion. Reached out to microbiology technician who recommended withholding Plavix, and will get gastroenterology Dr. Atwood on board, continue to monitor closely for development of hemorrhagic shock as well as concern for volume overload given history of severe . Hemoglobin stable this a.m., patient is pending EGD and colonoscopy to follow. Stable vitals. Quresh PGY2 Subjective Subjective Interval history: Patient seen today at the bedside found awake, alert, orientedx3. No overnight events reported. Patient reports continued black stools. Vital signs stable at this time. Labs significant for uptrending hemoglobin after 3 PRBC transfusions current hemoglobin 9.3. Started patient on lactated Ringer's at 75 cc/h. Patient had EGD done today found with gastritis with hemorrhage, blood seen throughout the duodenum. GI recommended transfuse 1 platelets and nuclear medicine RBC tagged scan. Exam Vital Signs Temp Pulse Resp BP Pulse Ox O2 Del Method O2 Flow Rate 97.0 F 74 16 100/53 L 98 Room Air 2 10/11/24 08:00 10/11/24 08:33 10/11/24 08:33 10/11/24 08:00 10/11/24 08:00 10/11/24 08:00 10/10/24 18:39 Narrative Exam Physical Exam GENERAL: NAD, AAOx3 HEENT: Dry mucosa. Eyes open, symmetrical, & clear CARDIO: Heart RRR, right upper sternal border and mitral area murmur radiating to the carotids PULM: No noted coughing/dyspnea CTA B/L, no R/W/R GI: Abdomen soft, nondistended, no pain on palpation. BSx4 SKIN/MSK/EXT: No wounds/rashes/edema/amputations, no pain on palpation. Pedal pulses present B/L NEURO: AAOx3, no focal neuro deficits, able to move all 4 extremities Objective Labs 10/12/24 05:42 10/12/24 05:42 Labs: Laboratory Results - last 24 hr 10/10/24 10/10/24 10/10/24 10:18 12:09 14:27 WBC RBC Hgb Hct MCV MCH MCHC RDW Std Deviation Plt Count Neut % (Auto) Lymph % (Auto) [place] % (Auto) Eos % (Auto) Baso % (Auto) Neut # (Auto) Lymph # (Auto) [place] # (Auto) Eos # (Auto) Baso # (Auto) Immature Gran # (Auto) Absolute Nucleated RBC Immature Gran % Nucleated RBC % Sodium 140 Potassium 5.6 H D Chloride 113 H Carbon Dioxide 18.1 L Anion Gap 9 BUN 61 H Creatinine 2.5 H Estim Creat Clear Calc 16.9 L eGFR 19 L BUN/Creatinine Ratio 24 H Glucose 92 Calculated Osmolality 296 H Calcium 8.6 Corrected Calcium Phosphorus Magnesium Total Bilirubin AST ALT Alkaline Phosphatase Total Protein Albumin Globulin Albumin/Globulin Ratio Triglycerides Cholesterol LDL Cholesterol, Calc HDL Cholesterol Cholesterol/HDL Ratio TSH Stool Occult Blood Positive A Blood Type A Positive Antibody Screen NEGATIVE Crossmatch See Detail Blood Bank Wristband ID Yes 10/10/24 10/11/24 19:21 05:44 WBC 6.0 RBC 3.07 L Hgb 9.7 L D 9.3 L Hct 30.0 L D 28.0 L MCV 91 MCH 30.3 MCHC 33.2 RDW Std Deviation 58.5 H Plt Count 118 L D Neut % (Auto) 64 Lymph % (Auto) 22 [place] % (Auto) 9 Eos % (Auto) 3 Baso % (Auto) 1 Neut # (Auto) 3.9 Lymph # (Auto) 1.4 [place] # (Auto) 0.5 Eos # (Auto) 0.2 Baso # (Auto) 0.1 Immature Gran # (Auto) 0.02 H Absolute Nucleated RBC 0.00 Immature Gran % 0 Nucleated RBC % 0 Sodium 146 H Potassium 4.6 D Chloride 115 H Carbon Dioxide 22.9 Anion Gap 8 BUN 53 H Creatinine 1.9 H D Estim Creat Clear Calc 22.0 L eGFR 27 L BUN/Creatinine Ratio 28 H Glucose 90 Calculated Osmolality 304 H Calcium 8.7 Corrected Calcium 9.4 Phosphorus 3.5 Magnesium 2.1 Total Bilirubin 0.3 AST 76 H ALT 51 H Alkaline Phosphatase 42 L Total Protein 4.8 L Albumin 3.1 L D Globulin 1.7 L Albumin/Globulin Ratio 1.8 Triglycerides 61 Cholesterol 73 L LDL Cholesterol, Calc 40 HDL Cholesterol 21 L Cholesterol/HDL Ratio 3.5 L TSH 2.47 Stool Occult Blood Blood Type Antibody Screen Crossmatch Blood Bank Wristband ID Quality Measures Quality Measures none Advance care planning discussed with:: patient Assessment & Plan Assessment Current Active Medications: Generic Name Dose Route Start Last Admin Trade Name Freq PRN Reason Stop Dose Admin Acetaminophen 650 mg 10/10/24 14:06 Acetaminophen 325 Mg Tablet PO 11/09/24 14:05 Q6H PRN Fever >100.5 Acetaminophen 650 mg 10/10/24 14:06 Acetaminophen 325 Mg Tablet PO 11/09/24 14:05 Q6H PRN PAIN SCALE 1-3 (mild Atorvastatin Calcium 40 mg 10/10/24 21:00 10/10/24 20:39 Atorvastatin Calcium 20 Mg Tablet PO 11/09/24 20:59 40 mg HS FELTON Administration Dextrose 25 ml 10/10/24 15:45 Dextrose 50%-Water Inj 50 Ml Syringe IV 11/09/24 15:44 Q15MIN PRN BG 50-70 responsive npo pt Dextrose 50 ml 10/10/24 15:45 Dextrose 50%-Water Inj 50 Ml Syringe IV 11/09/24 15:44 Q15MIN PRN BG <50 OR BG <70 & pt unresponsive Docusate Sodium 100 mg 10/11/24 09:00 Docusate Sod 100 Mg Capsule PO 11/10/24 08:59 QDAY FELTON Protocol Glucagon 1 mg 10/10/24 15:45 Glucagon Inj 1 Mg Vial IM Q15MIN PRN BG <70, and no IV access Lactated Ringer's 1,000 mls @ 75 mls/hr 10/11/24 10:09 10/11/24 10:43 Lactated Ringers IV 10/11/24 23:28 75 mls/hr .[id number] Administration Ondansetron HCl 4 mg 10/10/24 14:06 Ondansetron Inj 2 Mg/Ml Inj 2 Ml IV 11/09/24 14:05 Q6H PRN NAUSEA OR VOMITING Protocol Pantoprazole Sodium 40 mg 10/10/24 15:20 10/11/24 08:44 Pantoprazole Inj 40 Mg Vial IV 11/09/24 15:19 40 mg BID FELTON Administration Sodium Chloride 3 ml 10/10/24 16:46 10/10/24 16:52 Sodium Chloride Rt Molly 0.9% 3 Ml Nebu INH 11/09/24 16:45 3 ml PRN PRN Administration SOLN Plan 74-year-old smoker female with past medical history of coronary artery disease status post stent placement, severe aortic valve stenosis, asthma, hypertension, hyperlipidemia, presented to the ED due to generalized weakness. Admitted for acute blood loss anemia secondary to GI bleed. #Acute blood loss anemia # Gastritis with hemorrhage #Small bowel bleed #Hypotension Patient states having rectal stools for the past 2 days Of note patient had recent admission on 09/29/2024 and received 3 PRBC transfusions had EGD done by GI Dr. Atwood and found patient to have gastritis with hemorrhage, esophagitis, and blood-tinged bilious secretions in the descending duodenum. Patient was recommended to have colonoscopy however patient refused at point in time. In the ED patient received 2 PRBC transfusions FOBT positive Hemoglobin on admission 5.9, MAP is in the 50-60s. And blood pressure with systolic blood pressure in the high 80s Patient received 3 PRBC transfusions during hemoglobin 9.3 Patient had EGD done today found with gastritis with hemorrhage, blood seen throughout the duodenum. -Transfuse 1 platelets, as per GI recommendations -Pending nuclear medicine RBC tagged scan. -LR at 75 cc/h -Pantoprazole 40 mg IV twice daily -GI Dr. Atwood consulted, appreciate recommendations #Hyperkalemia-resolved Potassium on admission 6.1 EKG did not show any hyperacute T waves In the ED patient received hyperkalemia cocktail -Follow-up BMP #ARIES on CKD stage IIIa-improving -On IV fluids -Avoid nephrotoxins -Renally dose medications #History of severe aortic stenosis #History of CAD status post stents #Hypertension #Hyperlipidemia Patient has history of severe aortic stenosis based on previous echocardiogram by Dr. Goins On physical examination murmur is appreciated on right upper sternal border radiating to the carotids Spoke to Dr. Goins cardiology no need to resume Plavix at this time Blood pressure soft at this time MAP in the 50s-60s Echo showed Severe calcific Aortic valve mean gradient 47mmHg, vmax 4.4m/s. Peak Gradient 78 mm hG Normal LV size and function. Mild LVH. Estimated EF 60-65% Normal RV size and function. Mild mitral regurgitation Trace tricuspid regurgitation -Resume antihypertensive when appropriate -Atorvastatin 40 mg daily #Tobacco use Patient is an active smoker last cigarette was 2 days ago states she only smokes half a cigarette -Consider nicotine patch Case discussed with my senior Dr. Doshi PGY-[address] Jonathan Pham MD PGY-1 Disposition: Telemetry Fluids: LR Feeding: N.p.o. Thrombo prophylaxis: SCDs Gastric Ulcer prophylaxis: Pantoprazole 40 mg IV twice daily CODE STATUS: Full code Attending Provider Attestation/Addendum Molly Marina, , attest that I was physically present for the rajput portions of the service and evaluated the patient with the resident and I reviewed and discussed the case with the resident and agree with the resident's findings and plans of care as documented above Patient seen and evaluated this AM. Patient had declined colonoscopy on last admission, but is now willing to undergo if necessary. She is scheduled for EGD this evening. Will keep NPO. Will also give IV fluids as she is noted to have borderline low-normal BP. Will have blood on hold.
--- NOTE | 2024-10-11 13:21 | PC.SS ---
COMPLIANCE SPEC attempted bedside contact with the patient. Patient not present undergoing EGD at time of contact attempt.
--- NOTE | 2024-10-11 13:54 | SUR.PHASEI ---
135 patient arrived to recovery, report received from Marybel RIVERA
--- NOTE | 2024-10-11 14:35 | SUR.PHASEI ---
1429 Report given to Abhinav RIVERA, patient meets discharge criteria from recovery, awake and talking with staff, on oxygen 3L via nasal cannula, breathing unlabored, vital signs stable, denies pain and nausea 1435 Patient transported via gurney to room 278 without incident
--- NOTE | 2024-10-11 14:36 | PC.SS ---
Rounding Note: Patient to obtain EGD and colonoscopy today.
--- NOTE | 2024-10-11 14:42 | XR_ITS ---
Examination: Nuclear medicine gastrointestinal bleeding study Exam date and time: October 12, 2024 1401 hours INDICATIONS: Onset generalized abdominal pain chest pain this week, melanotic stools with hemoglobin 5.9, clinical diagnosis active gastrointestinal bleeding TECHNIQUE AND FINDINGS: 20.8 mCi technetium pertechnetate labeled red blood cells, abdomen and pelvic imaging obtained 60 seconds per frame 90 frames Normal cardiac and vascular activity No abnormal radioisotope accumulation noted on this study IMPRESSION: No gastrointestinal bleeding site noted
[2024-10-11] MEDS: ATORVASTATIN CALCIUM 20 MG TABLET 40 MG PO (20:26)
[2024-10-12] VITALS (9 sets, daily range): BP systolic 111–135; BP diastolic 50–78; PULSE 70–85; RESP 12–97; TEMP 36.3–36.8; O2SAT 95–97; BMI 35.4
[2024-10-12 06:08] LABS: Basophils # (Auto) 0.1 Thou/mm3 (0.0-0.2); Basophils % (Auto) 1 % (0-2.5); Eosinophils # (Auto) 0.2 Thou/mm3 (0.0-0.5); Eosinophils % (Auto) 4 % (0-10); Hematocrit 26.8 % (36.0-46.0); Immature Granulocytes % (Auto) 0 % (0-0); Immature Granulocytes Auto 0.02 Thou/mm3 (0.00-0.00); Lymphocytes # (Auto) 1.2 Thou/mm3 (1.0-4.8); Lymphocytes % (Auto) 21 % (10-50); Mean Corpuscular HGB Conc 31.3 g/dl (31.0-37.0); Mean Corpuscular Volume 96 fL (80-100); Monocytes # (Auto) 0.4 Thou/mm3 (0.0-0.8); Monocytes % (Auto) 7 % (0-12); Neutrophils # (Auto) 3.6 Thou/mm3 (1.8-7.7); Neutrophils % (Auto) 66 % (37-80); Nucleated Red Blood Cell % 0 /100 WBC (0); Platelet Count 153 Thou/mm3 (140-440); White Blood Count 5.4 Thou/mm3 (3.6-11.0)
[2024-10-12 06:14] LABS: Hemoglobin 8.4 g/dL (12.0-16.0)
[2024-10-12 06:56] LABS: Alanine Aminotransferase 41 U/L (10-49); Albumin, Serum 3.1 gm/dL (3.4-4.8); Albumin/Globulin Ratio 1.8 (1.2-2.2); Alkaline Phosphatase 45 U/L (46-116); Anion Gap 8 (7-16); Aspartate Amino Transferase 56 U/L (0-34); BUN/Creatinine Ratio 31 Ratio (12-20); Bilirubin,Total 0.5 mg/dL (0.3-1.2); Blood Urea Nitrogen 46 mg/dL (9-23); Calcium 8.6 mg/dL (8.3-10.6); Calcium (Corrected) 9.3 mg/dL (8.5-10.1); Carbon Dioxide 25.7 mMol/L (20.0-31.0); Chloride 115 mMol/L (98-107); Creatinine (Component) 1.5 mg/dL (0.6-1.3); Estimated Creatinine Clearance 29.1 mL/min (>60); Globulin 1.7 gm/dL (2.3-3.5); Glucose 78 mg/dL (74-106); Magnesium 1.8 mg/dL (1.6-2.6); Osmolality,Calculated 307 (275-295); Phosphorous 2.8 mg/dL (2.4-5.1); Potassium 4.4 mMol/L (3.4-5.1); Sodium 149 mMol/L (136-145); Total Protein 4.8 gm/dL (5.7-8.2); eGFR 36 See Note
[2024-10-12] MEDS: DOCUSATE SOD 100 MG CAPSULE PO (08:45)
[2024-10-12] MEDS: PANTOPRAZOLE INJ 40 MG VIAL IV ×2 (08:46→20:08)
[2024-10-12] MEDS: Magnesium Sulfate 4 GM Ivpb 4 GM/50 ML BAG IV (11:21)
--- NOTE | 2024-10-12 12:31 | PC.SS ---
Zeinab Roberts is 74-year-old female admitted to [facility] for GI Bleed. SS conducted bedside contact with the patient to complete initial assessment and to discuss discharge planning. Patient confirmed demographic information. Patient identifies her sister Emily High [phone] as her surrogate decision maker. Patient resides at home with her sister. Pt states she is able to complete all ADL?s independently, no need for any source of DME. Pts PCP is Dr. Valentin and her pharmacy of choice is [facility]. DC options discussed pt wishes to return home. Pts family will provide transportation upon DC. No further intervention required at this time, social welfare administrator would be available to address any further concerns. DC Plan: Home Contact: Emily High [phone]
--- NOTE | 2024-10-12 14:41 | ESPR_ITS ---
Documentation for date of: 10/12/24 Senior resident attestation: Patient evaluated and examined at the bedside, plan of care discussed with rest of the team including my attending physician, except as noted. 74-year-old female history of CAD s/p stent, severe aortic stenosis, scheduled for TAVR outpatient, follows hand woodworking sander Dr. Ellen Goins, currently on Plavix, presented with acute GI bleed and anemia. Reported dark stools as well as recent blood transfusions 2 weeks ago during previous hospitalization, workup for GI bleeding was done, EGD showed esophagitis, patient refused colonoscopy and was recommended to have outpatient colonoscopy but had to come into the ER due to feeling weak. Labs pertinent for hemoglobin 5.9, potassium 6.1, BUN 81, creatinine 2.9, also noted hypertension blood pressure 94/39, MAP 57, on repeat BP measurement MAP more than 65, ER already ordered blood transfusion. Reached out to hand woodworking sander who recommended withholding Plavix, and will get gastroenterology Dr. Atwood on board, continue to monitor closely for development of hemorrhagic shock as well as concern for volume overload given history of severe . Hemoglobin stable this a.m., Stable vitals. EGD yesterday showed blood in duodenum and and stomach, Dr. Atwood recommended pheresis platelets and nuclear medicine GI bleeding scan, which did not show any evidence of active bleed. Currently stable hemoglobin, pending GI recommendations regarding colonoscopy. Quresh PGY2 Subjective Subjective Interval history: Patient seen today at the bedside fine awake, alert, oriented x 3. No overnight events reported. States no active complaints at this time is hungry. Vital signs stable at this time. Labs significant for downtrending hemoglobin. Will order 2 PRBCs in case patient hemoglobin continues to drop. Patient is pending nuclear medicine scan RBC tagged today. Exam Vital Signs Temp Pulse Resp BP Pulse Ox O2 Del Method O2 Flow Rate 97.9 F 76 15 111/50 L 96 Room Air 0 10/12/24 12:10/12/24 12:10/12/24 12:10/12/24 12:10/12/24 12:10/12/24 12:10/11/24 22:30 Narrative Exam Physical Exam GENERAL: NAD, AAOx3 HEENT: Dry mucosa. Eyes open, symmetrical, & clear CARDIO: Heart RRR, right upper sternal border and mitral area murmur radiating to the carotids PULM: No noted coughing/dyspnea CTA B/L, no R/W/R GI: Abdomen soft, nondistended, no pain on palpation. BSx4 SKIN/MSK/EXT: No wounds/rashes/edema/amputations, no pain on palpation. Pedal pulses present B/L NEURO: AAOx3, no focal neuro deficits, able to move all 4 extremities Objective Labs 10/13/24 05:15 10/13/24 05:15 Labs: Laboratory Results - last 24 hr 10/10/24 10/12/24 10:18 05:42 WBC 5.4 RBC 2.80 L Hgb 8.4 L Hct 26.8 L MCV 96 MCH 30.0 MCHC 31.3 RDW Std Deviation 62.0 H Plt Count 153 D Neut % (Auto) 66 Lymph % (Auto) 21 [place] % (Auto) 7 Eos % (Auto) 4 Baso % (Auto) 1 Neut # (Auto) 3.6 Lymph # (Auto) 1.2 [place] # (Auto) 0.4 Eos # (Auto) 0.2 Baso # (Auto) 0.1 Immature Gran # (Auto) 0.02 H Absolute Nucleated RBC 0.00 Immature Gran % 0 Nucleated RBC % 0 Sodium 149 H Potassium 4.4 Chloride 115 H Carbon Dioxide 25.7 Anion Gap 8 BUN 46 H Creatinine 1.5 H Estim Creat Clear Calc 29.1 L eGFR 36 L BUN/Creatinine Ratio 31 H Glucose 78 Calculated Osmolality 307 H Calcium 8.6 Corrected Calcium 9.3 Phosphorus 2.8 Magnesium 1.8 Total Bilirubin 0.5 AST 56 H ALT 41 Alkaline Phosphatase 45 L Total Protein 4.8 L Albumin 3.1 L Globulin 1.7 L Albumin/Globulin Ratio 1.8 Blood Type A Positive Antibody Screen NEGATIVE Crossmatch See Detail Blood Bank Wristband ID Yes Blood Bank Comment PLATP Ready Quality Measures Quality Measures none Advance care planning discussed with:: patient Assessment & Plan Assessment Current Active Medications: Generic Name Dose Route Start Last Admin Trade Name Freq PRN Reason Stop Dose Admin Acetaminophen 650 mg 10/10/24 14:06 Acetaminophen 325 Mg Tablet PO 11/09/24 14:05 Q6H PRN Fever >100.5 Acetaminophen 650 mg 10/10/24 14:06 Acetaminophen 325 Mg Tablet PO 11/09/24 14:05 Q6H PRN PAIN SCALE 1-3 (mild Atorvastatin Calcium 40 mg 10/10/24 21:00 10/11/24 20:26 Atorvastatin Calcium 20 Mg Tablet PO 11/09/24 20:59 40 mg HS FELTON Administration Docusate Sodium 100 mg 10/11/24 09:00 10/12/24 08:45 Docusate Sod 100 Mg Capsule PO 11/10/24 08:59 100 mg QDAY FELTON Administration Protocol Ondansetron HCl 4 mg 10/10/24 14:06 Ondansetron Inj 2 Mg/Ml Inj 2 Ml IV 11/09/24 14:05 Q6H PRN NAUSEA OR VOMITING Protocol Pantoprazole Sodium 40 mg 10/10/24 15:20 10/12/24 08:46 Pantoprazole Inj 40 Mg Vial IV 11/09/24 15:19 40 mg BID FELTON Administration Sodium Chloride 3 ml 10/10/24 16:46 10/10/24 16:52 Sodium Chloride Rt Molly 0.9% 3 Ml Nebu INH 11/09/24 16:45 3 ml PRN PRN Administration SOLN Plan 74-year-old smoker female with past medical history of coronary artery disease status post stent placement, severe aortic valve stenosis, asthma, hypertension, hyperlipidemia, presented to the ED due to generalized weakness. Admitted for acute blood loss anemia secondary to GI bleed. #Acute blood loss anemia # Gastritis with hemorrhage #Small bowel bleed #Hypotension Patient states having rectal stools for the past 2 days Of note patient had recent admission on 09/29/2024 and received 3 PRBC transfusions had EGD done by GI Dr. Atwood and found patient to have gastritis with hemorrhage, esophagitis, and blood-tinged bilious secretions in the descending duodenum. Patient was recommended to have colonoscopy however patient refused at point in time. In the ED patient received 2 PRBC transfusions FOBT positive Hemoglobin on admission 5.9, MAP is in the 50-60s. And blood pressure with systolic blood pressure in the high 80s Patient received 3 PRBC transfusions during hemoglobin 9.3 Patient had EGD done today found with gastritis with hemorrhage, blood seen throughout the duodenum. Received platelet transfusion by GI recommendations -Pending nuclear medicine RBC tagged scan. -Pantoprazole 40 mg IV twice daily -GI Dr. Atwood consulted, appreciate recommendations #Hyperkalemia-resolved Potassium on admission 6.1 EKG did not show any hyperacute T waves In the ED patient received hyperkalemia cocktail -Follow-up BMP #ARIES on CKD stage IIIa-improving -f/u BMP -Avoid nephrotoxins -Renally dose medications #History of severe aortic stenosis #History of CAD status post stents #Hypertension #Hyperlipidemia Patient has history of severe aortic stenosis based on previous echocardiogram by Dr. Goins On physical examination murmur is appreciated on right upper sternal border radiating to the carotids Spoke to Dr. Goins cardiology no need to resume Plavix at this time Blood pressure soft at this time MAP in the 50s-60s Echo showed Severe calcific Aortic valve mean gradient 47mmHg, vmax 4.4m/s. Peak Gradient 78 mm hG Normal LV size and function. Mild LVH. Estimated EF 60-65% Normal RV size and function. Mild mitral regurgitation Trace tricuspid regurgitation -Resume antihypertensive when appropriate -Atorvastatin 40 mg daily #Tobacco use Patient is an active smoker last cigarette was 2 days ago states she only smokes half a cigarette -Consider nicotine patch Case discussed with my senior Dr. Doshi PGY-[address] Jonathan Pham MD PGY-1 Disposition: Telemetry Fluids: none Feeding: N.p.o. Thrombo prophylaxis: SCDs Gastric Ulcer prophylaxis: Pantoprazole 40 mg IV twice daily CODE STATUS: Full code Attending Provider Attestation/Addendum Molly Marina DO, attest that I was physically present for the rajput portions of the service and evaluated the patient with the resident and I reviewed and discussed the case with the resident and agree with the resident's findings and plans of care as documented above Patient seen and evaluated this AM. EGD showed evidence of erosions in GE junction; nonbleeding gastritis and blood noted in duodenum. No bleeding lesions were noted. RBC tagged nuclear scan ordered to evaluate for source of bleeding. Will f/u with cardio and GI recommendations. Holding antiplatelet therapy. Patient has been hemodynamically stable otherwise.
[2024-10-12 17:17] LABS: Basophils % (Auto) 1 % (0-2.5); Eosinophils # (Auto) 0.2 Thou/mm3 (0.0-0.5); Eosinophils % (Auto) 2 % (0-10); Hematocrit 29.1 % (36.0-46.0); Hemoglobin 9.2 g/dL (12.0-16.0); Immature Granulocytes % (Auto) 0 % (0-0); Immature Granulocytes Auto 0.02 Thou/mm3 (0.00-0.00); Lymphocytes # (Auto) 0.6 Thou/mm3 (1.0-4.8); Lymphocytes % (Auto) 7 % (10-50); Mean Corpuscular HGB Conc 31.6 g/dl (31.0-37.0); Mean Corpuscular Hemoglobin 30.4 pg (25.0-35.0); Mean Corpuscular Volume 96 fL (80-100); Monocytes # (Auto) 0.5 Thou/mm3 (0.0-0.8); Monocytes % (Auto) 6 % (0-12); Neutrophils # (Auto) 7.3 Thou/mm3 (1.8-7.7); Neutrophils % (Auto) 84 % (37-80); Nucleated Red Blood Cell % 0 /100 WBC (0); Platelet Count 173 Thou/mm3 (140-440); RDW Standard Deviation 62.3 fL (36.4-46.3); Red Blood Count 3.03 Miln/mm3 (4.00-5.20); White Blood Count 8.6 Thou/mm3 (3.6-11.0)
[2024-10-12] MEDS: ATORVASTATIN CALCIUM 20 MG TABLET 40 MG PO (20:09)
--- NOTE | 2024-10-12 20:50 | PD.IMPROG ---
Documentation for date of: 10/12/24 Subjective Subjective Interval history: Patient elevated Hemoglobin hematocrit 9.2 and 29.1 Nuclear medicine RBC tagged GI bleeding scan is negative Patient most likely has a small bowel bleed she cannot be on Plavix as she bleeds quite a bit Exam Vital Signs Temp Pulse Resp BP Pulse Ox O2 Del Method O2 Flow Rate 97.6 F 73 19 135/74 H 95 Room Air 0 10/12/24 16:00 10/12/24 19:48 10/12/24 19:48 10/12/24 16:00 10/12/24 16:00 10/12/24 16:00 10/12/24 16:00 Constitutional Comments: Alert oriented Routine Respiratory Exam Comments: Normal to auscultation Routine Abdominal Exam Comments: Soft nontender Objective Labs 10/12/24 17:05 10/12/24 05:42 Labs: Laboratory Results - last 24 hr 10/10/24 10/12/24 10/12/24 10:18 05:42 17:05 WBC 5.4 8.6 D RBC 2.80 L 3.03 L Hgb 8.4 L 9.2 L Hct 26.8 L 29.1 L MCV 96 96 MCH 30.0 30.4 MCHC 31.3 31.6 RDW Std Deviation 62.0 H 62.3 H Plt Count 153 D 173 Neut % (Auto) 66 84 H Lymph % (Auto) 21 7 L [place] % (Auto) 7 6 Eos % (Auto) 4 2 Baso % (Auto) 1 1 Neut # (Auto) 3.6 7.3 Lymph # (Auto) 1.2 0.6 L [place] # (Auto) 0.4 0.5 Eos # (Auto) 0.2 0.2 Baso # (Auto) 0.1 0.0 Immature Gran # (Auto) 0.02 H 0.02 H Absolute Nucleated RBC 0.00 0.00 Immature Gran % 0 0 Nucleated RBC % 0 0 Sodium 149 H Potassium 4.4 Chloride 115 H Carbon Dioxide 25.7 Anion Gap 8 BUN 46 H Creatinine 1.5 H Estim Creat Clear Calc 29.1 L eGFR 36 L BUN/Creatinine Ratio 31 H Glucose 78 Calculated Osmolality 307 H Calcium 8.6 Corrected Calcium 9.3 Phosphorus 2.8 Magnesium 1.8 Total Bilirubin 0.5 AST 56 H ALT 41 Alkaline Phosphatase 45 L Total Protein 4.8 L Albumin 3.1 L Globulin 1.7 L Albumin/Globulin Ratio 1.8 Blood Bank Comment PLATP Ready Impressions Impression: # Small bowel bleed although patient had refused colonoscopy in the past if the hemoglobin hematocrit stays stable Can be discharged home a.m. 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 Time Spent With Patient Time: Total time spent is greater than 50% in coordination of care (as documented) at patient's floor/unit and/or counseling patient:
--- NOTE | 2024-10-12 23:58 | ESCONSULT_ITS ---
RE: VERENICE GIVENS : 1950 DATE OF CONSULTATION: 10/12/2024 CONSULTING PHYSICIANS: Hospitalist. REASON FOR CONSULTATION: Evaluation of severe anemia. The patient was on Plavix because of cardiovascular disease. HISTORY OF PRESENT ILLNESS: The patient is a 74-year-old female, very well known to me, who has a longstanding history of severe calcific aortic stenosis, known CAD, status post previous stent placement and hypertension, carotid disease who has a risk of GI bleeding, underwent endoscopy that except for gastritis is unremarkable. She had a significant drop in hemoglobin. She came to the hospital because of this. She was discharged to home on 10/03/2024. During that hospitalization, the patient did have cardiac catheterization with severe aortic stenosis. Coronary arteries are patent, did not have any stents placed. The patient had right and left heart cardiac catheterization on 10/03/2024. This showed that she does have severe calcific aortic stenosis, was evaluated at 0.7. Excellent LV function. Stents were patent in the right coronary artery and LAD. There were bilateral iliac stents as well. The patient had no further bleeding. She went home and she was having_ severe weakness, found to have severe anemic. Endoscopy showed active bleeding in the duodenum, gastritis with hemoglobin dropped to 5.9, transfused now holding at 9.2. This is the second time she has GI bleeding. ALLERGIES: NONE. MEDICATIONS: The patient has been on: 1. Plavix 75 mg daily, mainly because of stents and cardiac disease. 2. Benazepril 40 mg daily. 3. Propranolol 10 mg daily. 4. Rosuvastatin 40 mg daily. PAST MEDICAL HISTORY: CAD, status post stent placement, history of carotid stenosis. SOCIAL HISTORY: She lives with another sister who has health problems. She does smoke intermittently. Does not drink alcoholic beverages. FAMILY HISTORY: Noncontributory. PHYSICAL EXAMINATION: GENERAL: She is well-developed, well-nourished female, alert, awake, in no acute distress. VITAL SIGNS: Blood pressure is 118/50, pulse 74, respiratory rate 16, temperature normal. _ nasal cannula. HEENT: Head is atraumatic and normocephalic. Eyes normal. ENT normal. NECK: Supple. No JVD. CHEST: Symmetrical. LUNGS: Decreased breath sounds. No rales or rhonchi. HEART: S1 and S2 regular. Loud systolic murmur heard at aortic area. ABDOMEN: Thin and soft. EXTREMITIES: No edema. ASSESSMENT: 1. Severe aortic stenosis. 2. Widely patent stent involving RCA. No residual stenosis. 3. Hypertension. 4. Acute gastrointestinal bleeding, possible duodenal ulcer versus gastric ulcer. RECOMMENDATION: I recommend discontinuing Plavix completely. No antiplatelet drugs are needed since the patient's stents were many years old. She will require a TAVR procedure. The patient may have also Heyde's syndrome where the patient bleeds from telangiectasia to small bowel as well because of significant aortic stenosis. We will anyway continue to monitor the patient with you closely. Arrange for possible TAVR procedure soon as this might help with GI bleeding. DT: 22:13:24 TT: 23:22:00 Ref: [id number] - TID: [id number] MTDD
[2024-10-13] VITALS: BP 113/49; PULSE 72; PULSE 88; RESP 16; TEMP 36.1; O2SAT 97
[2024-10-13 04:00] VITALS: BP 102/40; PULSE 65; PULSE 67; RESP 16; TEMP 36.3; O2SAT 97
[2024-10-13 05:54] LABS: Basophils # (Auto) 0.1 Thou/mm3 (0.0-0.2); Basophils % (Auto) 1 % (0-2.5); Eosinophils # (Auto) 0.2 Thou/mm3 (0.0-0.5); Eosinophils % (Auto) 3 % (0-10); Hematocrit 25.8 % (36.0-46.0); Immature Granulocytes % (Auto) 0 % (0-0); Immature Granulocytes Auto 0.02 Thou/mm3 (0.00-0.00); Lymphocytes # (Auto) 0.7 Thou/mm3 (1.0-4.8); Lymphocytes % (Auto) 11 % (10-50); Mean Corpuscular HGB Conc 31.8 g/dl (31.0-37.0); Mean Corpuscular Hemoglobin 30.7 pg (25.0-35.0); Mean Corpuscular Volume 97 fL (80-100); Monocytes # (Auto) 0.4 Thou/mm3 (0.0-0.8); Monocytes % (Auto) 7 % (0-12); Neutrophils # (Auto) 5.1 Thou/mm3 (1.8-7.7); Neutrophils % (Auto) 78 % (37-80); Nucleated Red Blood Cell % 0 /100 WBC (0); Platelet Count 143 Thou/mm3 (140-440); RDW Standard Deviation 62.2 fL (36.4-46.3); Red Blood Count 2.67 Miln/mm3 (4.00-5.20); White Blood Count 6.5 Thou/mm3 (3.6-11.0)
[2024-10-13 05:56] LABS: Hemoglobin 8.2 g/dL (12.0-16.0)
[2024-10-13 06:00] VITALS: BMI 35.4
[2024-10-13 06:36] LABS: Alanine Aminotransferase 37 U/L (10-49); Anion Gap 10 (7-16); Aspartate Amino Transferase 48 U/L (0-34); BUN/Creatinine Ratio 27 Ratio (12-20); Bilirubin,Total 0.7 mg/dL (0.3-1.2); Blood Urea Nitrogen 38 mg/dL (9-23); Calcium 8.3 mg/dL (8.3-10.6); Carbon Dioxide 21.7 mMol/L (20.0-31.0); Chloride 111 mMol/L (98-107); Creatinine (Component) 1.4 mg/dL (0.6-1.3); Estimated Creatinine Clearance 31.2 mL/min (>60); Magnesium 2.3 mg/dL (1.6-2.6); Osmolality,Calculated 290 (275-295); Phosphorous 3.4 mg/dL (2.4-5.1); Potassium 4.2 mMol/L (3.4-5.1); Sodium 143 mMol/L (136-145); Total Protein 4.7 gm/dL (5.7-8.2); eGFR 39 See Note
[2024-10-13 06:37] LABS: Albumin/Globulin Ratio 1.8 (1.2-2.2); Alkaline Phosphatase 49 U/L (46-116); Calcium (Corrected) 9.1 mg/dL (8.5-10.1); Globulin 1.7 gm/dL (2.3-3.5)
[2024-10-13 06:41] LABS: Glucose 46 mg/dL (74-106)
[2024-10-13] MEDS: DEXTROSE 50%-WATER INJ 50 ML SYRINGE IV (07:40)
[2024-10-13 08:00] VITALS: BP 131/60; PULSE 68; PULSE 70; RESP 20; TEMP 37.1; O2SAT 97
[2024-10-13] MEDS: PANTOPRAZOLE INJ 40 MG VIAL IV (08:13)
[2024-10-13] MEDS: DOCUSATE SOD 100 MG CAPSULE PO (08:13)
--- NOTE | 2024-10-13 09:48 | PC.SS ---
Follow up note: Possible d/c home if hemoglobin is stable.
[2024-10-13 11:52] VITALS: BMI 35.3
[2024-10-13 12:00] VITALS: BP 118/50; PULSE 71; PULSE 72; RESP 19; TEMP 36.8; O2SAT 96
--- NOTE | 2024-10-13 13:45 | ESDS_ITS ---
<Statement entered by Molly Castillo DO - 10/14/24 08:05> I, Molly Castillo DO, attest that I was physically present for the rajput portions of the service and evaluated the patient with the resident and I reviewed and discussed the case with the resident and agree with the resident's findings and plans of care as documented above Planned Discharge Date 10/13/24 DS: Providers Provider Date of admission: 10/10/24 14:06 Primary care physician: Ant Valentin MD Admitting Provider: Luis Celestin MD Attending Provider on Admission: Molly Castillo DO Consults: 10/10/24 14:19 Consult to Gastroenterology Stat Comment: Consulting Provider: Jada Atwood Attending Provider on DC: Molly Castillo DO Discharging Provider: Karthikeyan Pham MD Anticipated date of discharge: 10/13/24 DS: Diagnosis Problem List Completed Was Problem List Reviewed/Reconciled?: Yes Hospital Course Hospital Course Hospital course: 74-year-old smoker female with past medical history of coronary artery disease status post stent placement, severe aortic valve stenosis, asthma, hypertension, hyperlipidemia, presented to the ED due to generalized weakness. Admitted for acute blood loss anemia secondary to GI bleed. During hopital stay patient was work up with FOBT which was found to be positive. Patients hemoglobin at the time of admission was found to be very low for which multiple blood transfusions and IVFs were required with adequate increase in hemoglobin on post transfusions H&H. GI specialist, Dr. Atwood was consulted and recommended patient undergo EGD evaluation which showed some gastritis with hemorrahge as well as blood seen throughout the duodenum. Following EGD, GI recommended patient be transfused 1 unit of platelets and for patient to undergo Nuclear medicine RBC tag scan which was found to be negative for any gastrointestinal bleed site. Patient was also managed with protonix 40mg bid throughout hospitalization. Patient on admission was found to be hyperkalemic which was managed with hyperkalemia cocktail including albuterol, dextrose + insulin, kaexylate, calcium gluconate. Patient also had Acute kidney injury on admission which was managed with IV fluids. Cardiology, Dr. Goins was consulted as patient has severe aortic stenosis. Patients hypertension was resumed with patients own home medications as blood pressure permitted as patient on admission was hypotensive. Hyperlipidemia was managed with statin therapy. Patient has hx of tobacco use, patient was counseled on smoking cessation. At this time patient is medically stable for discharge. Recommend to follow up with PCP within 1 week of discharge. Recommend to discontinue the medications Plavix as per Cardiology and GI recommendations Please follow-up with metal inspector Dr. Ellen Goins within 1 week of discharge from the hospital. Also recommended following with a flooring installer Dr. Atwood within 2 weeks of discharge from the hospital. Will continue with Protonix 40 mg twice daily for 30 days and can follow-up with GI in regards to continuation of this medication. In case of worsening symptoms, please return to the emergency room. 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 Jonathan Pham MD PGY-1 Senior resident attestation: Patient evaluated and examined at the bedside, plan of care discussed with rest of the team including my attending physician, except as noted. Quresh PGY2 Status at Discharge Functional status at discharge: independent ambulation Overall status at discharge: patient is back to baseline Time Spent with Patient Time attestation: Total time spent providing and/or coordinating discharge services: Time spent: Greater than 30 minutes Home Health Home Health Referral Orders: 10/13/24 10:15 Home Health Referral Routine Reason For Exam: gi bleed Home-Bound The patient must either because of illness or injury, need the aid of supportive devices such as crutches, canes, wheelchairs, and walkers; the use of special transportation; or the assistance of another person in order to leave their place of residence; OR have a condition such that leaving his or her home is medically contraindicated. In addition, the patient also meets the following criteria: patient is normally unable to leave the home and leaving home requires considerable taxing effort. Addendum to Home Health Certification Practitioner's Certification: I certify that the patient has been under my care in the hospital and the care of attending physician (see below). We had a lkza-bv-phid encounter on (see date below). My clinical findings indicate that the patient is home bound per the above criteria and the Home Health Services noted in these orders are medically necessary. The primary reason for the kgqz-qh-jiel encounter is related to the fact that the patient requires home health services. Date Certifying Bapg-eo-Slwr Physician Encounter: 10/10/24 Physician's Name who will Assume Oversight for Services: Ant Valentin Physician's Phone No.who will Assume Oversight for Service: MANAGER OF COMMUNITY RELATIONS - Community Resources: No PT to Evaluate: Yes PT to evaluate and provide a treatmnet plan to increase patient's mobility and strength. Wound Care: No IV Therapy: No RN Safety Evaluation: Yes RN to evaluate and create a plan of care that will produce positive outcomes. Palliative Treatment: No Palliative treatment and evaluate the need for hospice. Home Health Aide - Personal Care: Yes Home Health Aide to assist with any ADL's. Exam Vital Signs Temp Pulse Resp BP Pulse Ox O2 Del Method O2 Flow Rate 98.8 F 68 20 131/60 H 97 Room Air 0 10/13/24 08:00 10/13/24 08:00 10/13/24 08:00 10/13/24 08:00 10/13/24 08:00 10/13/24 08:00 10/13/24 08:00 Narrative Exam Physical Exam GENERAL: NAD, AAOx3 HEENT: Dry mucosa. Eyes open, symmetrical, & clear CARDIO: Heart RRR, right upper sternal border and mitral area murmur radiating to the carotids PULM: No noted coughing/dyspnea CTA B/L, no R/W/R GI: Abdomen soft, nondistended, no pain on palpation. BSx4 SKIN/MSK/EXT: No wounds/rashes/edema/amputations, no pain on palpation. Pedal pulses present B/L NEURO: AAOx3, no focal neuro deficits, able to move all 4 extremities Discharge Plan Plan Patient Disposition: Home w/HOME HEALTH Patient condition on transfer: Stable Care Plan Goals: Recommend to follow up with PCP within 1 week of discharge Recommend to discontinue the medications Plavix as per Cardiology and GI recommendations Please follow-up with metal inspector Dr. Ellen Goins within 1 week of discharge from the hospital. Also recommended following with a flooring installer Dr. Atwood within 2 weeks of discharge from the hospital. In case of worsening symptoms, please return to the emergency room. Will continue with Protonix 40 mg twice daily for 30 days and can follow-up with GI in regards to continuation of this medication Prescriptions/Referrals Prescriptions/Med Rec: New ferrous sulfate 325 mg (65 mg iron) tablet 325 mg PO QDAY Qty: 30 0RF pantoprazole 40 mg tablet,delayed release (DR/EC) 40 mg PO BID Qty: 60 1RF Continued rosuvastatin 40 mg tablet 40 mg PO DAILY Held propranolol 10 mg Tablet 10 mg PO BID Hold Instructions: Resume on 10/28/24. Recommended to follow-up with cardiology in regards to continuation of this medication due to soft blood pressure benazepril 40 mg tablet 40 mg PO QDAY Hold Instructions: Resume on 10/28/24. Recommended to follow-up with cardiology in regards to continuation of this medication due to soft blood pressure Discontinued clopidogrel 75 mg tablet 75 mg PO QAM Hold Instructions: Resume on 08/06/23. She can resume her Plavix when her urine is clear after removal of the [place] catheter and it is okay with the metal inspector and the hospitalist amoxicillin-pot clavulanate 875-125 mg tablet 1 tab PO BID Qty: 14 0RF Rx Instructions: for 9 days started Oct 03- Referrals: Ant Valentin MD [Primary Care Provider] - Jada Atwood MD [Physician] - Kirsten Goins MD [Physician] - Patient/Caregiver Discharge Instructions Education Materials: Bleeding Gastrointestinal, Upper GI Endoscopy Print Language: Yoruba Stand Alone Forms: Kailee Award Info., Patient Portal Info Letter Discharge Order Discharge Orders: Discharge (Routine); Ordered 10/13/24 Ordered By: Norm Snow Quality Discharge Quality Measures VTE prophylaxis
--- NOTE | 2024-10-13 14:33 | PD.IMPROG ---
Documentation for date of: 10/13/24 Subjective Subjective Interval history: Case discussed with internal medicine team I will visit her nuclear medicine scan is negative Patient needs a capsule endoscopy Which has to be done as an outpatient If patient has more blood per rectum in the form of melena or hematochezia she will come back to the ER Exam Vital Signs Temp Pulse Resp BP Pulse Ox O2 Del Method O2 Flow Rate 98.2 F 71 19 118/50 L 96 Room Air 0 10/13/24 12:00 10/13/24 12:00 10/13/24 12:00 10/13/24 12:00 10/13/24 12:00 10/13/24 12:00 10/13/24 12:00 Objective Labs 10/13/24 05:15 10/13/24 05:15 Labs: Laboratory Results - last 24 hr 10/10/24 10/12/24 10/13/24 10:18 17:05 05:15 WBC 8.6 D 6.5 RBC 3.03 L 2.67 L Hgb 9.2 L 8.2 L Hct 29.1 L 25.8 L MCV 96 97 MCH 30.4 30.7 MCHC 31.6 31.8 RDW Std Deviation 62.3 H 62.2 H Plt Count 173 143 D Neut % (Auto) 84 H 78 Lymph % (Auto) 7 L 11 [place] % (Auto) 6 7 Eos % (Auto) 2 3 Baso % (Auto) 1 1 Neut # (Auto) 7.3 5.1 Lymph # (Auto) 0.6 L 0.7 L [place] # (Auto) 0.5 0.4 Eos # (Auto) 0.2 0.2 Baso # (Auto) 0.0 0.1 Immature Gran # (Auto) 0.02 H 0.02 H Absolute Nucleated RBC 0.00 0.00 Immature Gran % 0 0 Nucleated RBC % 0 0 Sodium 143 Potassium 4.2 Chloride 111 H Carbon Dioxide 21.7 Anion Gap 10 BUN 38 H Creatinine 1.4 H Estim Creat Clear Calc 31.2 L eGFR 39 L BUN/Creatinine Ratio 27 H Glucose 46 L* Calculated Osmolality 290 Calcium 8.3 Corrected Calcium 9.1 Phosphorus 3.4 Magnesium 2.3 Total Bilirubin 0.7 AST 48 H ALT 37 Alkaline Phosphatase 49 Total Protein 4.7 L Albumin 3.0 L Globulin 1.7 L Albumin/Globulin Ratio 1.8 Crossmatch See Detail Impressions Impression: # Small bowel bleed Capsule endoscopy as an outpatient Assessment & Plan A&P Narrative # Acute GI bleed in the form of melena # Acute posthemorrhagic anemia # 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 Time Spent With Patient Time: Total time spent is greater than 50% in coordination of care (as documented) at patient's floor/unit and/or counseling patient:
[2024-10-13 14:53] VITALS: PULSE 73; RESP 20; RESP 96
[2024-10-13 16:00] VITALS: BP 147/59; PULSE 69; PULSE 71; RESP 16; TEMP 36.9; O2SAT 95
--- NOTE | 2024-10-16 08:06 | PC.CC ---
Pt entered into [facility], no preferred agency specified
--- NOTE | 2024-10-16 08:37 | PC.CC ---
Addendum entered by Svetlana Velásquez RN 10/16/24 16:37: start of care date with [facility] is 10/17/24 Addendum entered by Antonella Gonzalez RN 10/16/24 10:02: Pt booked with [facility] pending SOC Original Note: Referrals sent to all agencies
== END 2024-10-13 17:15 | disposition home health service (06) | DRG 378 ==
LOC: SERX 12:50 → SERHOLD 15:00 → S2NX 10-11 06:58
PROVIDERS: Specialist; Student in an Organized Health Care Education/Training Program; Admitting Provider Student in an Organized Health Care Education/Training Program; Emergency Provider Emergency Medicine; PCP Family Medicine; Visit Provider Internal Medicine
PROC: 30233R1 Transfusion of Nonautologous Platelets into Peripheral Vein, Percutaneous Approach (ICD-10-PCS; CPT 43239; principal; 2024-10-11 16:30)
DX: K29.71 Gastritis, unspecified, with bleeding (principal); D62 Acute posthemorrhagic anemia; N17.9 Acute kidney failure, unspecified; K22.10 Ulcer of esophagus without bleeding; Z95.5 Presence of coronary angioplasty implant and graft; I35.0 Nonrheumatic aortic (valve) stenosis; E78.5 Hyperlipidemia, unspecified; I25.10 Atherosclerotic heart disease of native coronary artery without angina pectoris; I12.9 Hypertensive chronic kidney disease with stage 1 through stage 4 chronic kidney disease, or unspecified chronic kidney disease; N18.31 Chronic kidney disease, stage 3a; F17.200 Nicotine dependence, unspecified, uncomplicated; J45.909 Unspecified asthma, uncomplicated; I95.9 Hypotension, unspecified; E87.5 Hyperkalemia; Z71.6 Tobacco abuse counseling
CPT/HCPCS: 36415; 36430; 71045; 78278; 80048; 80053; 80061; 82270; 83690; 83735; 83880; 84100; 84443; 84484; 85014; 85018; 85025; 85240; 85245; 85246; 85247; 85610; 85730; 86850; 86900; 86901; 86923; 86965; 87081; 93005; 94640; 94644; 96361; 96365; 96374; 96375; 99291; A4217; A4641; A9560; J0613; J1200; J1815; J2250; J2470; J3010; J3475; J7030; J7040; J7120; P9016; P9035; A9270